=== PATIENT | female | born 1970 | race Caucasian/White ===

== ENCOUNTER 2016-11-03 17:37 | Emergency (ER) | payer OTHER ==
[2016-11-03] MEDS ORDERED: ONDANSETRON ODT 8 MG TAB.RAPDIS PO STA (18:02)
[2016-11-03] MEDS ORDERED: KETOROLAC 30 MG/ML 1 ML VIAL IVP STA (18:02)
[2016-11-03] MEDS ORDERED: HYDROmorphone 1 MG/ML 1 ML SYRINGE IVP STA (18:04)
--- NOTE | 2016-11-03 18:05 | ED ---
Abdominal Pain HPI - General Chief Complaint: Abdominal Pain Stated Complaint: abd pain Time Seen by Provider: 11/03/16 17:55 Source: patient, RN notes reviewed Mode of arrival: wheelchair Limitations: no limitations - History of Present Illness Initial Comments: Patient is a 46-year-old female with chief complaint of epigastric abdominal pain for approximately one week. She reports that she's her primary care provider as scheduled scope with Dr. Albaro Jimenez on for possible ulcer. Patient reports that every time she eats she vomits approximately 30 minutes afterwards. She states that she's not had a bowel movement in 3 days and feels that her abdomen is very distended. She reports that she is passing any gas and she is burping. She states that she has had no fever, chills, shortness of breath or chest pain. She reports that she's been taking multiple Zantac for acid reflux burning sensation. She states that today she did eat a corn dog approximately 30 minutes afterwards she vomited up. At this point she was concerned because she saw blood in her vomit. Patient's surgical history includes appendectomy, hysterectomy, back surgery and neck surgery. She states that she has a history of GERD, hypertension, hyperlipidemia and depression. - Related Data Home Medications Medication Instructions Recorded Confirmed Citalopram Hydrobromide [CeleXA] 40 mg PO DAILY 02/04/16 11/03/16 amLODIPine [Norvasc] 2.5 mg PO DAILY 07/01/16 11/03/16 Atorvastatin Calcium [Lipitor] 40 mg PO DAILY 11/03/16 11/03/16 HYDROcodone/APAP 7.5-325MG [[place] 1 tab PO BID PRN 11/03/16 11/03/16 7.5-325] Omeprazole [PriLOSEC] 20 mg PO DAILY 11/03/16 11/03/16 Previous Rx's Medication Instructions Recorded Acetaminophen-Codeine 300-30mg 1 tab PO Q4H PRN #12 tablet 11/03/16 [Tylenol #3] Ondansetron Odt [Zofran Odt] 4 mg PO Q8HR PRN #12 tab 11/03/16 Allergies Allergy/AdvReac Type Severity Reaction Status Date / Time morphine Allergy Rash/Hives Verified 11/03/16 18:10 Review of Systems ROS Statement: Those systems with pertinent positive or pertinent negative responses have been documented in the HPI. ROS Other: All systems not noted in ROS Statement are negative. Past Medical History Past Medical History: Hypertension History of Any Multi-Drug Resistant Organisms: None Reported Past Surgical History: Appendectomy, Back Surgery, Hysterectomy Additional Past Surgical History / Comment(s): neck surgery Past Psychological History: Depression Smoking Status: Current every day smoker Past Alcohol Use History: Rare Past Drug Use History: None Reported General Exam - General Exam Comments Initial Comments: Patient is a pleasant 46-year-old female. She does appear to be in significant discomfort. Limitations: no limitations General appearance: alert, in no apparent distress Head exam: Present: atraumatic, normocephalic, normal inspection Eye exam: Present: normal appearance, PERRL, EOMI. Absent: scleral icterus, conjunctival injection, periorbital swelling ENT exam: Present: normal exam, normal oropharynx, mucous membranes moist Neck exam: Present: normal inspection. Absent: tenderness, meningismus, lymphadenopathy Respiratory exam: Present: normal lung sounds bilaterally. Absent: respiratory distress, wheezes, rales, rhonchi, stridor Cardiovascular Exam: Present: regular rate, normal rhythm, normal heart sounds. Absent: systolic murmur, diastolic murmur, rubs, gallop, clicks GI/Abdominal exam: Present: distended (Patient's abdomen is very distended. Abdomen is tympanic in the left upper quadrant.), tenderness, normal bowel sounds. Absent: soft, guarding, rebound, rigid Extremities exam: Present: normal inspection, full ROM, normal capillary refill. Absent: tenderness, pedal edema, joint swelling, calf tenderness Back exam: Present: normal inspection Neurological exam: Present: alert, oriented X3, CN II-XII intact Psychiatric exam: Present: normal affect, normal mood Skin exam: Present: warm, dry, intact, normal color. Absent: rash Course Vital Signs 11/03/16 11/03/16 11/03/16 17:45 22:04 22:58 Temperature 98.4 F 99.1 F 96.8 F L Pulse Rate 87 80 85 Respiratory 20 18 18 Rate Blood Pressure 143/84 149/70 145/74 O2 Sat by Pulse 96 99 98 Oximetry Medical Decision Making - Medical Decision Making Patient is a 46-year-old female with chief complaint of epigastric abdominal pain for approximately one week. She reports that she's her primary care provider as scheduled scope with Dr. Albaro Jimenez on for possible ulcer. Patient reports that every time she eats she vomits approximately 30 minutes afterwards. She states that she's not had a bowel movement in 3 days and feels that her abdomen is very distended. She reports that she is passing gas and she is burping. She states that she has had no fever, chills, shortness of breath or chest pain. She reports that she's been taking multiple Zantac for acid reflux burning sensation. She states that today she did eat a corn dog approximately 30 minutes afterwards she vomited up. At this point she was concerned because she saw blood in her vomit. Patient lab was reviewed. No acute abnormalities. Xray was negative for any acute process, given patients tenderness and distension CT abdomen and pelvis obtained. CT was negative for any acute process for the pain. Patient did vomit the contrast up. Patient reports that she wants to go home at this time and to be given nasuea medication. I discussed that she needs to follow up with PCP and to complete the scope. Return parameters discussed. I discussed liquid diet cathietil seen by GI specialist. - Lab Data Result diagrams: 11/03/16 18:40 11/03/16 18:40 Lab Results 11/03/16 11/03/16 11/03/16 Range/Units 18:18 18:40 18:40 WBC 12.7 H (3.8-10.6) k/uL RBC 4.49 (3.80-5.40) m/uL Hgb 13.9 (11.4-16.0) gm/dL Hct 41.9 (34.0-46.0) % MCV 93.3 (80.0-100.0) fL MCH 30.8 (25.0-35.0) pg MCHC 33.1 (31.0-37.0) g/dL RDW 13.7 (11.5-15.5) % Plt Count 326 (150-450) k/uL Neutrophils % 60 % Lymphocytes % 30 % Monocytes % 5 % Eosinophils % 1 % Basophils % 1 % Neutrophils # 7.7 (1.3-7.7) k/uL Lymphocytes # 3.8 (1.0-4.8) k/uL Monocytes # 0.6 (0-1.0) k/uL Eosinophils # 0.1 (0-0.7) k/uL Basophils # 0.1 (0-0.2) k/uL Sodium 141 (137-145) mmol/L Potassium 4.2 (3.5-5.1) mmol/L Chloride 106 (98-107) mmol/L Carbon Dioxide 26 (22-30) mmol/L Anion Gap 9 mmol/L BUN 12 (7-17) mg/dL Creatinine 0.60 (0.52-1.04) mg/dL Est GFR (MDRD) Af Amer >60 (>60 ml/min/1.73 sqM) Est GFR (MDRD) Non-Af >60 (>60 ml/min/1.73 sqM) Glucose 95 (74-99) mg/dL Calcium 9.7 (8.4-10.2) mg/dL Total Bilirubin 0.4 (0.2-1.3) mg/dL AST 22 (14-36) U/L ALT 47 (9-52) U/L Alkaline Phosphatase 144 H (38-126) U/L Total Protein 7.5 (6.3-8.2) g/dL Albumin 4.3 (3.5-5.0) g/dL Amylase 66 (30-110) U/L Lipase 49 (23-300) U/L Urine Color Yellow Urine Appearance Clear (Clear) Urine pH 5.5 (5.0-8.0) Ur Specific [place] 1.021 (1.001-1.035) Urine Protein Negative (Negative) Urine Glucose (UA) Negative (Negative) Urine Ketones Negative (Negative) Urine Blood Trace H (Negative) Urine Nitrate Negative (Negative) Urine Bilirubin Negative (Negative) Urine Urobilinogen <2.0 (<2.0) mg/dL Ur Leukocyte Esterase Negative (Negative) Urine RBC 1 (0-5) /hpf Urine WBC 1 (0-5) /hpf Ur Squamous Epith Cells 4 (0-4) /hpf Urine Bacteria Few H (None) /hpf Hyaline Casts 1 (0-2) /lpf Urine Mucus Rare H (None) /hpf - Radiology Data Radiology results: report reviewed XR KUB AND CT ABD and pelvis reviewed and are negative for bowel obstruction. Disposition Clinical Impression: Nausea & vomiting, Epigastric abdominal pain Disposition: HOME SELF-CARE Condition: Good Instructions: Epigastric Pain (ED) Additional Instructions: Patient advised to follow-up with primary care provider in next 1-2 days. Return to emergency department if any alarming signs or symptoms occur. Prescriptions: Acetaminophen-Codeine 300-30mg [Tylenol #3] 1 tab PO Q4H PRN #12 tablet PRN Reason: Pain Ondansetron Odt [Zofran Odt] 4 mg PO Q8HR PRN #12 tab PRN Reason: Nausea Referrals: Becca Wiggins MD [Primary Care Provider] - 1-2 days Time of Disposition: 22:40
[2016-11-03] MEDS ORDERED: ONDANSETRON ODT 4 MG TAB PO STA (18:34)
[2016-11-03 19:09] LABS: Basophils # (A) 0.1 k/uL (0-0.2); Basophils % (A) 1 %; CH 31.9; CHCM 34.4; Eosinophils # (A) 0.1 k/uL (0-0.7); Eosinophils % (A) 1 %; HCT 41.9 % (34.0-46.0); HDW 2.54; HGB 13.9 gm/dL (11.4-16.0); Luc # (Auto) 0.39; Luc % (Auto) 3; Lymphocytes # (A) 3.8 k/uL (1.0-4.8); Lymphocytes % (A) 30 %; MCH 30.8 pg (25.0-35.0); MCHC 33.1 g/dL (31.0-37.0); MCV 93.3 fL (80.0-100.0); Mean Platelet Volume 8.2; Monocytes # (A) 0.6 k/uL (0-1.0); Monocytes % (A) 5 %; Neutrophils # (A) 7.7 k/uL (1.3-7.7); Neutrophils % (A) 60 %; RBC 4.49 m/uL (3.80-5.40); RDW 13.7 % (11.5-15.5); WBC 12.7 k/uL (3.8-10.6); WBC (Perox) 12.95
[2016-11-03 19:13] LABS: Appearance,Urine Clear (Clear); Bacteria,Urine Few /hpf; Bilirubin,Urine Negative (Negative); Glucose,Urine (UA) Negative (Negative); Ketones,Urine Negative (Negative); Leukocyte Esterase,Urine Negative (Negative); Mucus,Urine Rare /hpf; Nitrite,Urine Negative (Negative); PH, Urine 5.5 (5.0-8.0); Particle Count 2567; Protein,Urine Negative (Negative); RBC,Urine 1 /hpf (0-5); Specific Gravity,Urine 1.021 (1.001-1.035); Squamous Epithelial Cell,Urine 4 /hpf (0-4); UA Billing (MACRO vs. MICRO) MICRO; Urobilinogen,Urine <2.0 mg/dL (<2.0); WBC,Urine 1 /hpf (0-5)
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
[2016-11-03 19:27] LABS: ALT 47 U/L (9-52); AST 22 U/L (14-36); Alkaline Phosphatase 144 U/L (38-126); Amylase 66 U/L (30-110); Anion Gap 9 mmol/L; Blood Urea Nitrogen 12 mg/dL (7-17); Calcium 9.7 mg/dL (8.4-10.2); Carbon Dioxide 26 mmol/L (22-30); Chloride 106 mmol/L (98-107); Glucose 95 mg/dL (74-99); Non-African American GFR(MDRD) >60 (>60 ml/min/1.73 sqM); Potassium 4.2 mmol/L (3.5-5.1); Sodium 141 mmol/L (137-145); Total Bilirubin 0.4 mg/dL (0.2-1.3); Total Protein 7.5 g/dL (6.3-8.2)
[2016-11-03] MEDS ORDERED: RX INFO: IV CONTRAST WAS GIVEN 1 EACH MISC MISCELLANE PRN (19:44)
[2016-11-03] MEDS ORDERED: IOHEXOL 350 MG/ML 25 ML BOTTLE (ORAL USE) PO PRN (19:44)
--- NOTE | 2016-11-03 21:44 | CT ---
EXAMINATION TYPE: CT abdomen pelvis w con DATE OF EXAM: 11/03/2016 9:27 PM HISTORY: Upper Abdomen pain with nausea, vomiting and distention CT DLP: 1160.8mGycm Automated Exposure Control for Dose Reduction was Utilized. CONTRAST: CT scan of the abdomen and pelvis is performed with IV Contrast, patient injected with 100 mL of Omni paque 300. COMPARISON: None. FINDINGS: LUNG BASES: No significant abnormality is appreciated. LIVER/GB: Liver is diffusely low dense consistent with fatty infiltration. PANCREAS: No significant abnormality is seen. SPLEEN: No significant abnormality is seen. ADRENALS: No significant abnormality is seen. KIDNEYS: There are simple appearing 2 cm cyst posteriorly upper pole level left kidney. BOWEL: Only minimal oral contrast is seen in nondistended stomach making evaluation bowel slightly hermosillo boptimal. There is no suspicious small or large bowel dilatation seen. Surgical sutures from appendec jean claude are seen at base of cecum. UTERUS/ADNEXA: Uterus is surgically absent or markedly atrophic in appearance, small remnant structur es is noted on axial image 73. Left ovary is not enlarged on axial image 72. Normal-appearing right o vary is not clearly identified. Small remnant structure may reflect normal size right ovary medial in position. LYMPH NODES: No greater than 1cm abdominal or pelvic lymph nodes are appreciated. OSSEOUS STRUCTURES: There is facet arthropathy in the lower lumbar spine. There is moderate to advanc ed disc space narrowing with vacuum disc phenomenon and endplate sclerosis at lumbosacral junction. OTHER: There is mild calcified atherosclerotic change of the abdominal aorta and pelvic branch vessel s. IMPRESSION: No bowel obstruction is present. No significant acute finding is seen to account for pam ent's clinical symptoms.
[2016-11-03 22:05] VITALS: RESP 18
[2016-11-03] MEDS ORDERED: diphenhydrAMINE 50 MG/ML 1 ML VIAL IVP STA (22:41)
[2016-11-03] MEDS ORDERED: METOCLOPRAMIDE 5 MG/ML 2 ML VIAL IVP STA (22:41)
[2016-11-03 22:59] VITALS: BP 145/74; PULSE 85; TEMP 96.8
== END 2016-11-03 23:08 | disposition home or self-care (01) ==
LOC: EC 17:37
DX: R11.2 Nausea with vomiting, unspecified (principal); R10.13 Epigastric pain; I10 Essential (primary) hypertension; F32.9 Major depressive disorder, single episode, unspecified; F17.200 Nicotine dependence, unspecified, uncomplicated; Z88.5 Allergy status to narcotic agent; Z79.899 Other long term (current) drug therapy
CPT/HCPCS: 36415; 80053; 82150; 83690; 85025; 81001; 74000; 74177; 99284; 96374; 96375 ×3; J1200; J2765; J1885; J1170; Q9967

== ENCOUNTER 2016-11-05 08:51 | Inpatient (IN) | payer OTHER ==
[2016-11-05] MEDS ORDERED: HYDROmorphone 1 MG/ML 1 ML SYRINGE IVP STA (09:14)
[2016-11-05] MEDS ORDERED: ONDANSETRON 4 MG/2 ML VIAL IVP STA (09:15)
--- NOTE | 2016-11-05 09:20 | ED ---
Abdominal Pain HPI - General Chief Complaint: Abdominal Pain Stated Complaint: ABD PAIN Time Seen by Provider: 11/05/16 09:04 Source: patient, RN notes reviewed Mode of arrival: ambulatory Limitations: no limitations - History of Present Illness Initial Comments: Patient is a 46-year-old female presents to the emergency room for evaluation of abdominal pain and distention. Patient states she was here 2 days ago for the same complaint. Patient states that for the past week she has been having increasing mid epigastric pain. Patient states pain is worse after she eats. Patient states 30 minutes after she eats she vomits. Patient states she came here 2 days ago and received blood work, x-ray and CT of her abdomen/pelvis. Patient states they couldn't find any evidence for obstructions. Patient states they wanted to keep her here overnight and do an endoscopy in the morning. Patient states that she did not want to stay and went home instead. Patient states that she has an endoscopy scheduled with Dr. Peña on . Patient states the abdominal distention has gotten worse from when she was here last time. Patient states she can't sleep because of pain. Patient states she hasn't been eating because she's afraid she's going to vomit. Patient denies fevers or chills. Patient denies alcohol use. Patient denies any significant abdominal surgeries. - Related Data Home Medications Medication Instructions Recorded Confirmed Citalopram Hydrobromide [CeleXA] 40 mg PO DAILY 02/04/16 11/05/16 amLODIPine [Norvasc] 2.5 mg PO DAILY 07/01/16 11/05/16 Atorvastatin Calcium [Lipitor] 40 mg PO DAILY 11/03/16 11/05/16 HYDROcodone/APAP 7.5-325MG [[place] 1 tab PO BID PRN 11/03/16 11/05/16 7.5-325] Omeprazole [PriLOSEC] 20 mg PO DAILY 11/03/16 11/05/16 Previous Rx's Medication Instructions Recorded Acetaminophen-Codeine 300-30mg 1 tab PO Q4H PRN #12 tablet 11/03/16 [Tylenol #3] Ondansetron Odt [Zofran Odt] 4 mg PO Q8HR PRN #12 tab 11/03/16 Allergies Allergy/AdvReac Type Severity Reaction Status Date / Time morphine Allergy Rash/Hives Verified 11/05/16 17:04 Review of Systems ROS Statement: Those systems with pertinent positive or pertinent negative responses have been documented in the HPI. ROS Other: All systems not noted in ROS Statement are negative. Past Medical History Past Medical History: Hypertension History of Any Multi-Drug Resistant Organisms: None Reported Past Surgical History: Appendectomy, Back Surgery, Hysterectomy Additional Past Surgical History / Comment(s): neck surgery Past Psychological History: Depression Smoking Status: Current every day smoker Past Alcohol Use History: Rare Past Drug Use History: None Reported - Past Family History Father Family Medical History: No Reported History Additional Family Medical History / Comment(s): Father is 83 yrs old and healthy. Mother Family Medical History: Congestive Heart Failure (CHF), Diabetes Mellitus, Renal Disease Additional Family Medical History / Comment(s): Mother at the age of 71 yrs General Exam - General Exam Comments Initial Comments: Laying in exam room, uncomfortable secondary to discomfort, no acute distress. Limitations: no limitations General appearance: alert, in no apparent distress Head exam: Present: atraumatic, normocephalic, normal inspection Eye exam: Present: normal appearance ENT exam: Present: normal exam Neck exam: Present: normal inspection Respiratory exam: Present: normal lung sounds bilaterally. Absent: respiratory distress Cardiovascular Exam: Present: regular rate, normal rhythm, normal heart sounds GI/Abdominal exam: Present: distended, tenderness (epigastric), normal bowel sounds. Absent: guarding, rebound, rigid Extremities exam: Present: normal inspection Back exam: Present: normal inspection Neurological exam: Present: alert, oriented X3, CN II-XII intact, normal gait Psychiatric exam: Present: normal affect, normal mood Skin exam: Present: warm, dry, intact, normal color. Absent: rash Course Vital Signs 11/05/16 11/05/16 08:53 15:42 Temperature 97.3 F L 98.3 F Pulse Rate 92 89 Respiratory 18 18 Rate Blood Pressure 186/95 132/71 O2 Sat by Pulse 95 95 Oximetry Medical Decision Making - Medical Decision Making Patient is a 46-year-old female presents to the emergency room for evaluation of abdominal pain and distention. Labs showed no concerning findings. Repeat x -ray shows no specific findings. Case discussed Dr. Laguerre. Dr. Laguerre discussed case with Dr. Peña who agreed to admit patient. Patient will receive HIDA scan and gastroduodenal scope tomorrow morning. - Lab Data Result diagrams: 11/05/16 09:25 11/05/16 09:25 Lab Results 11/05/16 11/05/16 11/05/16 Range/Units 09:25 09:25 09:25 WBC 10.5 (3.8-10.6) k/uL RBC 4.55 (3.80-5.40) m/uL Hgb 14.1 (11.4-16.0) gm/dL Hct 42.6 (34.0-46.0) % MCV 93.5 (80.0-100.0) fL MCH 31.0 (25.0-35.0) pg MCHC 33.2 (31.0-37.0) g/dL RDW 13.6 (11.5-15.5) % Plt Count 313 (150-450) k/uL Neutrophils % 62 % Lymphocytes % 28 % Monocytes % 5 % Eosinophils % 1 % Basophils % 1 % Neutrophils # 6.5 (1.3-7.7) k/uL Lymphocytes # 2.9 (1.0-4.8) k/uL Monocytes # 0.6 (0-1.0) k/uL Eosinophils # 0.1 (0-0.7) k/uL Basophils # 0.1 (0-0.2) k/uL Sodium 143 (137-145) mmol/L Potassium 4.3 (3.5-5.1) mmol/L Chloride 104 (98-107) mmol/L Carbon Dioxide 29 (22-30) mmol/L Anion Gap 10 mmol/L BUN 8 (7-17) mg/dL Creatinine 0.66 (0.52-1.04) mg/dL Est GFR (MDRD) Af Amer >60 (>60 ml/min/1.73 sqM) Est GFR (MDRD) Non-Af >60 (>60 ml/min/1.73 sqM) Glucose 99 (74-99) mg/dL Calcium 9.5 (8.4-10.2) mg/dL Total Bilirubin 0.4 (0.2-1.3) mg/dL AST 23 (14-36) U/L ALT 41 (9-52) U/L Alkaline Phosphatase 130 H (38-126) U/L Total Protein 7.3 (6.3-8.2) g/dL Albumin 4.3 (3.5-5.0) g/dL Amylase 55 (30-110) U/L Lipase 58 (23-300) U/L Urine Color Yellow Urine Appearance Cloudy H (Clear) Urine pH 6.5 (5.0-8.0) Ur Specific [place] 1.016 (1.001-1.035) Urine Protein Trace H (Negative) Urine Glucose (UA) Negative (Negative) Urine Ketones Negative (Negative) Urine Blood Negative (Negative) Urine Nitrate Negative (Negative) Urine Bilirubin Negative (Negative) Urine Urobilinogen <2.0 (<2.0) mg/dL Ur Leukocyte Esterase Negative (Negative) Urine RBC 3 (0-5) /hpf Urine WBC 7 H (0-5) /hpf Ur Squamous Epith Cells 25 H (0-4) /hpf Urine Mucus Rare H (None) /hpf - Radiology Data Radiology results: report reviewed, image reviewed Disposition Clinical Impression: Abdominal pain, Abdominal distension Disposition: ADMITTED IP TO THIS [facility] Condition: Stable Decision Date: 11/05/16
[2016-11-05 09:46] LABS: Basophils # (A) 0.1 k/uL (0-0.2); Basophils % (A) 1 %; CH 31.7; CHCM 34.1; Eosinophils # (A) 0.1 k/uL (0-0.7); Eosinophils % (A) 1 %; HCT 42.6 % (34.0-46.0); HDW 2.57; HGB 14.1 gm/dL (11.4-16.0); Luc # (Auto) 0.32; Luc % (Auto) 3; Lymphocytes # (A) 2.9 k/uL (1.0-4.8); Lymphocytes % (A) 28 %; MCHC 33.2 g/dL (31.0-37.0); MCV 93.5 fL (80.0-100.0); Mean Platelet Volume 7.8; Monocytes # (A) 0.6 k/uL (0-1.0); Monocytes % (A) 5 %; Neutrophils # (A) 6.5 k/uL (1.3-7.7); Neutrophils % (A) 62 %; RBC 4.55 m/uL (3.80-5.40); RDW 13.6 % (11.5-15.5); WBC 10.5 k/uL (3.8-10.6); WBC (Perox) 10.85
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
[2016-11-05 09:51] LABS: ALT 41 U/L (9-52); AST 23 U/L (14-36); Alkaline Phosphatase 130 U/L (38-126); Amylase 55 U/L (30-110); Anion Gap 10 mmol/L; Blood Urea Nitrogen 8 mg/dL (7-17); Calcium 9.5 mg/dL (8.4-10.2); Carbon Dioxide 29 mmol/L (22-30); Chloride 104 mmol/L (98-107); Glucose 99 mg/dL (74-99); Non-African American GFR(MDRD) >60 (>60 ml/min/1.73 sqM); Potassium 4.3 mmol/L (3.5-5.1); Sodium 143 mmol/L (137-145); Total Bilirubin 0.4 mg/dL (0.2-1.3); Total Protein 7.3 g/dL (6.3-8.2)
[2016-11-05 09:54] LABS: Appearance,Urine Cloudy (Clear); Bilirubin,Urine Negative (Negative); Glucose,Urine (UA) Negative (Negative); Ketones,Urine Negative (Negative); Leukocyte Esterase,Urine Negative (Negative); Mucus,Urine Rare /hpf; Nitrite,Urine Negative (Negative); PH, Urine 6.5 (5.0-8.0); Particle Count 11230; Protein,Urine Trace (Negative); RBC,Urine 3 /hpf (0-5); Specific Gravity,Urine 1.016 (1.001-1.035); Squamous Epithelial Cell,Urine 25 /hpf (0-4); UA Billing (MACRO vs. MICRO) MICRO; Urobilinogen,Urine <2.0 mg/dL (<2.0); WBC,Urine 7 /hpf (0-5)
[2016-11-05] MEDS ORDERED: NALOXONE 0.4 MG/ML 1 ML VIAL IV PRN (11:44)
[2016-11-05] MEDS ORDERED: HYDROmorphone 1 MG/ML 1 ML SYRINGE IV PRN (11:44)
[2016-11-05] MEDS ORDERED: Magnesium Replacement Protocol 1 EACH MISC MISCELLANE PRN (14:16)
[2016-11-05] MEDS ORDERED: Potassium Replacement Protocol 1 EACH MISC MISCELLANE PRN (14:16)
--- NOTE | 2016-11-05 16:20 | NM ---
EXAMINATION TYPE: NM hepatobiliary w EF DATE OF EXAM: 11/05/2016 3:53 PM COMPARISON: CT abdomen pelvis 03 November 2016 HISTORY: Abdominal pain in the upper abdomen, nausea and vomiting TECHNIQUE: After the intravenous administration of 5.5 mCi Tc 99m Mebrofenin hepatobiliary scintigrap hy is performed. Immediate images post injection. FINDINGS: There is satisfactory initial accumulation of tracer by the liver. The gallbladder is visualized wit hin 12 minutes. The small bowel activity is noted within 38 minutes. At one hour 8 ounces of oral e nsure plus is given to mimic CCK and gallbladder ejection fraction is calculated at 34 %, which is sl ightly below normal. Therefore there is no scintigraphic evidence of cystic or common bile duct obst ruction to suggest acute cholecystitis or gallbladder dyskinesia. IMPRESSION: Borderline abnormal low gallbladder ejection fraction
[2016-11-05] MEDS: SODIUM CHLORIDE 0.9% 1,000 ML IV SCH (17:00)
[2016-11-05] MEDS: ONDANSETRON 4 MG/2 ML VIAL IVP PRN (17:06)
[2016-11-05] MEDS: MORPHINE SULFATE 2 MG/ML SYRINGE IVP PRN ×2 (17:49→21:59)
[2016-11-05] MEDS: PANTOPRAZOLE 40 MG/10 ML VIAL IVP SCH (22:05)
[2016-11-05] MEDS: HEPARIN SODIUM,PORCINE 5,000 UNIT/ML 1 ML VIAL SQ SCH (22:05)
[2016-11-06] MEDS: MORPHINE SULFATE 2 MG/ML SYRINGE IVP PRN ×5 (03:59→20:45)
[2016-11-06] MEDS: ONDANSETRON 4 MG/2 ML VIAL IVP PRN (04:00)
[2016-11-06 07:15] LABS: Anion Gap 9 mmol/L; Blood Urea Nitrogen 6 mg/dL (7-17); Carbon Dioxide 28 mmol/L (22-30); Chloride 104 mmol/L (98-107); Glucose 93 mg/dL (74-99); Magnesium 1.9 mg/dL (1.6-2.3); Non-African American GFR(MDRD) >60 (>60 ml/min/1.73 sqM); Potassium 4.3 mmol/L (3.5-5.1); Sodium 141 mmol/L (137-145)
[2016-11-06] MEDS: HEPARIN SODIUM,PORCINE 5,000 UNIT/ML 1 ML VIAL SQ SCH ×2 (08:09→19:54)
[2016-11-06] MEDS: PANTOPRAZOLE 40 MG/10 ML VIAL IVP SCH ×2 (08:10→19:54)
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
[2016-11-06 11:34] VITALS: BMI 31.9
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
[2016-11-06] MEDS ORDERED: PROPOFOL 10 MG/ML 20 ML VIAL IV ONE (16:22)
[2016-11-06] MEDS ORDERED: IV FLUID CONTINUATION 1,000 ML IV ONE (16:22)
--- NOTE | 2016-11-06 16:33 | P.OP ---
Date of Procedure: 11/06/16 Preoperative Diagnosis: GERD Postoperative Diagnosis: Mild antral gastritis No evidence of hiatal hernia No significant esophagitis Procedure(s) Performed: EGD Anesthesia: MAC Surgeon: Maikol Peña Pathology: other (The antrum) Condition: stable Disposition: PACU Description of Procedure: The patient's placed on the endoscopy table in the lateral position. She received IV sedation. The gastroscope some placed oropharynx and passed into the esophagus and into the stomach. Scope was then placed through the pylorus. The first and second portion of the duodenum appeared normal. Scope was then brought back the antrum and this was mildly inflamed. A biopsies was performed. The scope was then retroflexed and the remainder of the stomach was normal. There was no significant hiatal hernia. The GE junction was at 47 is. The distal esophagus appeared mildly inflamed a biopsies was performed. The proximal esophagus appeared normal. Scope was withdrawn for patient.
[2016-11-06] MEDS: LACTATED RINGERS 1,000 ML IV SCH ×2 (17:03→19:45)
[2016-11-06] MEDS: SODIUM CHLORIDE 0.9% 1,000 ML IV SCH ×2 (19:22→19:55)
[2016-11-07] MEDS: MORPHINE SULFATE 2 MG/ML SYRINGE IVP PRN ×3 (00:49→09:11)
[2016-11-07] MEDS ORDERED: MAG HYDROX/AL HYDROX/SIMETH 30 ML CUP PO PRN (01:38)
[2016-11-07] MEDS: SODIUM CHLORIDE 0.9% 1,000 ML IV SCH ×2 (06:35→19:45)
[2016-11-07 08:27] LABS: Anion Gap 10 mmol/L; Blood Urea Nitrogen 7 mg/dL (7-17); Calcium 8.9 mg/dL (8.4-10.2); Carbon Dioxide 24 mmol/L (22-30); Chloride 107 mmol/L (98-107); Glucose 83 mg/dL (74-99); Magnesium 1.9 mg/dL (1.6-2.3); Non-African American GFR(MDRD) >60 (>60 ml/min/1.73 sqM); Potassium 4.2 mmol/L (3.5-5.1); Sodium 141 mmol/L (137-145)
--- NOTE | 2016-11-07 09:19 | P.PN ---
Progress Note - Text The patient is scheduled for laparoscopic ostectomy for biliary dyskinesia today. I've gone over the risks and benefits of the procedure with the patient.
[2016-11-07] MEDS ORDERED: IV FLUID CONTINUATION 1,000 ML IV ONE (09:48)
[2016-11-07] MEDS: ONDANSETRON 4 MG/2 ML VIAL IVP PRN (10:04)
[2016-11-07] MEDS ORDERED: DEXAMETHASONE SOD PHOS (MDV) 100 MG/10 ML VIAL IV ONE (10:04)
[2016-11-07] MEDS ORDERED: ceFAZolin 2 GM in SODIUM CHLORIDE 0.9% 100 ML IVPB ONE (10:24)
[2016-11-07] MEDS: HEPARIN SODIUM,PORCINE 5,000 UNIT/ML 1 ML VIAL SQ SCH ×2 (10:24→19:51)
[2016-11-07] MEDS ORDERED: PROPOFOL 10 MG/ML 20 ML VIAL IV ONE (10:49)
[2016-11-07] MEDS ORDERED: NEOSTIGMINE 1 MG/ML 10 ML VIAL ONE (10:49)
[2016-11-07] MEDS ORDERED: GLYCOPYRROLATE 0.2 MG/ML 2 ML VIAL ONE (10:49)
[2016-11-07] MEDS ORDERED: MIDAZOLAM 2 MG/2 ML VIAL ONE (10:49)
[2016-11-07] MEDS ORDERED: HYDROmorphone (PF) 1 MG/ML ONE (10:49)
[2016-11-07] MEDS ORDERED: KETOROLAC 30 MG/ML 1 ML VIAL ONE (10:49)
[2016-11-07] MEDS ORDERED: fentaNYL (PF) 50 MCG/ML 2 ML AMP ONE (10:49)
[2016-11-07] MEDS ORDERED: SUCCINYLCHOLINE CHLORIDE 100 MG/5 ML SYR IV ONE (10:49)
[2016-11-07] MEDS ORDERED: LIDOCAINE 1% INJ 10MG/ML (20 ML MDV) ONE (10:49)
[2016-11-07] MEDS ORDERED: ROCURONIUM BROMIDE 10 MG/ML 10 ML VIAL IV ONE (10:49)
[2016-11-07] MEDS ORDERED: BUPIVACAIN-EPI 0.25%-1:200,000 30 ML VIAL SQ ONE (11:01)
[2016-11-07] MEDS ORDERED: HYDROcodone/APAP 5-325MG 1 EACH TAB PO PRN (11:17)
[2016-11-07] MEDS ORDERED: NALOXONE 0.4 MG/ML 1 ML VIAL IV PRN (11:17)
[2016-11-07] MEDS ORDERED: LACTATED RINGERS 1,000 ML IV ONE ×3 (11:17→11:23)
--- NOTE | 2016-11-07 11:17 | P.OP ---
Date of Procedure: 11/07/16 Preoperative Diagnosis: Cholecystitis Postoperative Diagnosis: Cholecystitis Procedure(s) Performed: Laparoscopic cholecystectomy Anesthesia: ALYCE Surgeon: Maikol Peña Estimated Blood Loss (ml): 5 Pathology: other (Gallbladder) Condition: stable Disposition: PACU Description of Procedure: The patient was placed on the operating table. The patient received a general endotracheal tube anesthesia. The patients abdomen was prepped and draped in the usual sterile fashion. Through an infraumbilical stab incision, the fascia of the anterior abdominal wall was grasped with a pair of Kochers and then the Veress needle was placed in the peritoneal cavity. Position of the Veress needle was confirmed with positive drop test. The abdomen was then insufflated. After adequate insufflation, the 10 mm trocar was placed in the peritoneal cavity. Following this the laparoscope was placed in the peritoneal cavity. The patient was placed in the head-up, right side up position and then a 5 mm trocar was placed in the right lateral and right subcostal position under direct visualization. A 8 mm trocar was placed in the epigastric position. The gallbladder was grasped in the fundus and infundibulum. Traction on the gallbladder was placed in the lateral and the cephalad positions. The triangle of Calot was visualized.. The cystic duct was bluntly dissected until the union of the cystic duct and common bile duct was seen. The cystic duct was then divided and sealed with the Harmonic scissors. A PDS Endoloop was then placed throughout the cystic duct stump. The cystic artery divided and sealed with the Harmonic scissors. The gallbladder was then removed from the liver bed using Harmonic scissors. The gallbladder was then extracted through the epigastric port site. Operative field was checked for any bleeding spots and Harmonic scissors was used to coagulate the liver bed. The abdomen was irrigated. The trocars were removed. The skin was closed using interrupted 3-0 Vicryl suture. Dermabond dressing were applied. The patient tolerated the procedure well.
[2016-11-07] MEDS ORDERED: HYDROmorphone 1 MG/ML 1 ML SYRINGE IVP ONE (11:58)
[2016-11-07] MEDS: HYDROmorphone 1 MG/ML 1 ML SYRINGE IVP PRN ×4 (13:48→22:47)
[2016-11-07] MEDS: CITALOPRAM HYDROBROMIDE 20 MG TAB PO SCH (13:50)
[2016-11-07] MEDS: amLODIPine 2.5 MG TAB PO SCH (13:50)
[2016-11-07] MEDS: PANTOPRAZOLE 40 MG/10 ML VIAL IVP SCH ×2 (13:50→19:50)
[2016-11-07] MEDS: ATORVASTATIN 40 MG TAB PO SCH (13:50)
[2016-11-07] MEDS: LACTATED RINGERS 1,000 ML IV SCH (19:51)
[2016-11-07 20:00] VITALS: RESP 16
[2016-11-08] MEDS: HYDROmorphone 1 MG/ML 1 ML SYRINGE IVP PRN ×3 (01:46→08:43)
[2016-11-08] MEDS: SODIUM CHLORIDE 0.9% 1,000 ML IV SCH ×2 (03:56→12:51)
[2016-11-08] MEDS ORDERED: BENZOCAINE/MENTHOL LOZENG 1 EACH LOZENGE MUCOUS MEM PRN (04:49)
[2016-11-08 07:35] LABS: Anion Gap 9 mmol/L; Blood Urea Nitrogen 6 mg/dL (7-17); Calcium 9.3 mg/dL (8.4-10.2); Carbon Dioxide 28 mmol/L (22-30); Chloride 103 mmol/L (98-107); Glucose 108 mg/dL (74-99); Magnesium 1.9 mg/dL (1.6-2.3); Non-African American GFR(MDRD) >60 (>60 ml/min/1.73 sqM); Potassium 4.4 mmol/L (3.5-5.1); Sodium 140 mmol/L (137-145)
[2016-11-08 08:28] VITALS: BP 131/76; PULSE 76; TEMP 98.1
[2016-11-08] MEDS: amLODIPine 2.5 MG TAB PO SCH (08:34)
[2016-11-08] MEDS: HEPARIN SODIUM,PORCINE 5,000 UNIT/ML 1 ML VIAL SQ SCH (08:34)
[2016-11-08] MEDS: PANTOPRAZOLE 40 MG/10 ML VIAL IVP SCH (08:35)
[2016-11-08] MEDS: ATORVASTATIN 40 MG TAB PO SCH (08:35)
[2016-11-08] MEDS: CITALOPRAM HYDROBROMIDE 20 MG TAB PO SCH (08:35)
--- NOTE | 2016-11-08 11:54 | P.PN ---
Subjective Patient is status post EGD and laparoscopic cholecystectomy Abdominal pain has resolved. No nausea or vomiting. Tolerating diet. The bloating sensation also resolved. Denies any chest pain or shortness breath. Denies any difficulty urinating. Objective - Vital Signs Vital signs: Vital Signs Temp 98.1 F 11/08/16 08:00 Pulse 76 11/08/16 08:00 Resp 16 11/08/16 08:00 BP 131/76 11/08/16 08:00 Pulse Ox 93 L 11/08/16 08:00 Intake & Output 11/07/16 11/08/16 11/08/16 18:59 06:59 18:59 Intake Total 420 220 Balance 420 220 Intake: Oral 420 220 Other: Voiding Method Toilet Toilet # Voids 1 1 - Exam Head normocephalic Neck supple Lungs clear to auscultation bilaterally no wheezing or crackles Heart regular rate and rhythm S1-S2, no rub or gallop Abdomen is soft nontender nondistended positive bowel sounds no hepatosplenomegaly. Incisions clean dry and intact Extremities no edema Neuro alert and orientated to 3 - Labs CBC & Chem 7: 11/05/16 09:25 11/08/16 06:22 Labs: Abnormal Lab Results - Last 24 Hours (Table) 11/08/16 Range/Units 06:22 BUN 6 L (7-17) mg/dL Glucose 108 H (74-99) mg/dL Assessment and Plan Plan: 1) cholecystitis status post laparoscopic cholecystectomy 2) epigastric pain: Status post EGD revealing antral gastritis. Continue Protonix 3) severe GERD 4) Essential hypertension: Blood pressure not well-controlled 5) Major depressive disorder: maintained on Celexa 6) Mild intermittent asthma: on albuterol inhaler as needed 7) Cervical spine degenerative joint disease noted on MRI: on [place] twice a day as needed for pain 8) Mixed hyperlipidemia: on Lipitor anticipate discharge later today after seen by surgical service. Have patient follow-up with Dr. Wiggins in 1 week
--- NOTE | 2016-11-08 13:50 | P.DS ---
Providers Date of admission: 11/07/16 14:27 Expected date of discharge: 11/08/16 Attending physician: Maikol Peña Primary care physician: Becca Wiggins [facility] Course: This is a 38-year-old female who is admitted to the hospital complaints of nausea and epigastric dull pain. Patient had a HIDA scan performed which showed decreased ejection fraction consistent with biliary dyskinesia. She also had a EGD performed which showed some mild gastritis. Patient went laparoscopic cholecystectomy. She has done well since her surgery. Please see chart for details. Procedures: Laparoscopic cholecystectomy Patient Condition at Discharge: Good Plan - Discharge Summary New Discharge Prescriptions: HYDROcodone/APAP 7.5-325MG [[place] 7.5-325] 1 tab PO Q6HR PRN #28 tab PRN Reason: Pain Discharge Medication List Citalopram Hydrobromide [CeleXA] 40 mg PO DAILY 02/04/16 [History] amLODIPine [Norvasc] 2.5 mg PO DAILY 07/01/16 [History] Atorvastatin Calcium [Lipitor] 40 mg PO DAILY 11/03/16 [History] Omeprazole [PriLOSEC] 20 mg PO DAILY 11/03/16 [History] Ondansetron Odt [Zofran ODT] 4 mg PO Q8HR PRN #12 tab 11/03/16 [Rx] HYDROcodone/APAP 7.5-325MG [[place] 7.5-325] 1 tab PO Q6HR PRN #28 tab 11/07/16 [ Rx] Follow up Appointment(s)/Referral(s): Becca Wiggins MD [Primary Care Provider] - 1 Week Maikol Peña MD [STAFF PHYSICIAN] - 1 Week Patient Instructions/Handouts: *Surgery [facility] - Laparoscopic Cholecystectomy Discharge Instructions Activity/Diet/Wound Care/Special Instructions: No heavy lifting, pushing, or pulling items greater than 10 pounds. Low fat diet Shower daily, no soaking in bath tubs, pools, or hot tubs. No driving while taking pain medication. Notify surgeon with any signs or symptoms of infection, increased pain, or not tolerating diet. Discharge Disposition: HOME SELF-CARE
== END 2016-11-08 13:05 | disposition home or self-care (01) | DRG 419 ==
LOC: EC 08:51 → 3OBS 11:44 → OBSVTOIN 11-07 14:27
PROVIDERS: ADMIT Surgery; ATTEND Surgery
PROC: 0DB68ZX Excision of Stomach, Via Natural or Artificial Opening Endoscopic, Diagnostic (ICD-10-PCS; 2016-11-06)
PROC: 0FT44ZZ Resection of Gallbladder, Percutaneous Endoscopic Approach (ICD-10-PCS; principal; 2016-11-07 11:20)
DX: K81.9 Cholecystitis, unspecified (principal); I10 Essential (primary) hypertension; K21.9 Gastro-esophageal reflux disease without esophagitis; K82.8 Other specified diseases of gallbladder; K29.60 Other gastritis without bleeding; E78.2 Mixed hyperlipidemia; J45.20 Mild intermittent asthma, uncomplicated; M50.30 Other cervical disc degeneration, unspecified cervical region; F17.200 Nicotine dependence, unspecified, uncomplicated; R74.8 Abnormal levels of other serum enzymes; F32.9 Major depressive disorder, single episode, unspecified; R63.4 Abnormal weight loss; Z88.5 Allergy status to narcotic agent; Z91.5 Personal history of self-harm; Z82.49 Family history of ischemic heart disease and other diseases of the circulatory system; Z83.3 Family history of diabetes mellitus; Z79.899 Other long term (current) drug therapy; Z90.710 Acquired absence of both cervix and uterus; Z87.81 Personal history of (healed) traumatic fracture; Z86.19 Personal history of other infectious and parasitic diseases; Z87.09 Personal history of other diseases of the respiratory system; Z79.891 Long term (current) use of opiate analgesic; Z90.49 Acquired absence of other specified parts of digestive tract; Z84.2 Family history of other diseases of the genitourinary system
CPT/HCPCS: 36415; 43239; 74000; 78226; 80048; 80053; 81001; 82150; 83690; 83735; 85025; 87086; 88304; 88305; 88342; 96372; 96374; 96375; 96376; 99285

== ENCOUNTER 2016-12-24 11:02 | Emergency (ER) | payer OTHER ==
[2016-12-24 11:09] VITALS: BP 140/67; PULSE 92; RESP 20; TEMP 98.1
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
== END 2016-12-24 11:42 | disposition home or self-care (01) ==
LOC: EC 11:02
DX: L03.116 Cellulitis of left lower limb (principal); I10 Essential (primary) hypertension; F32.9 Major depressive disorder, single episode, unspecified; F17.200 Nicotine dependence, unspecified, uncomplicated; Z79.899 Other long term (current) drug therapy; Z88.5 Allergy status to narcotic agent; X58.XXXA Exposure to other specified factors, initial encounter
CPT/HCPCS: 99283

== ENCOUNTER → 2017-01-28 | Outpatient (CLI) | payer OTHER ==
--- NOTE | 2017-01-28 09:48 | MM ---
Reason for exam: screening (asymptomatic). Last mammogram was performed 1 year and 6 months ago. History: Patient is postmenopausal. Physical Findings: A clinical breast exam by your physician is recommended on an annual basis and results should be correlated with mammographic findings. MG Screening Mammo w CAD Bilateral CC and MLO view(s) were taken. Prior study comparison: August 07, 2015, mammogram, performed at [facility]. June 08, 2014, mammogram, performed at [facility]. The breast tissue is heterogeneously dense. This may lower the sensitivity of mammography. Asymmetric breast tissue in the left breast. This finding is changed when compared with previous exams. ASSESSMENT: Incomplete: need additional imaging evaluation, BI-RAD 0 RECOMMENDATION: Special view mammogram of the left breast. If lesion persists on supplemental views, image directed ultrasound is recommended. [facility] will attempt to contact patient to return for supplemental views and ultrasound if indicated.
== END | disposition home or self-care (01) ==
LOC: RADMAMWWP 08:23
PROVIDERS: ATTEND Internal Medicine
DX: Z12.31 Encounter for screening mammogram for malignant neoplasm of breast (principal)

== ENCOUNTER → 2017-01-30 | Outpatient (CLI) | payer OTHER ==
--- NOTE | 2017-01-30 09:29 | MM ---
Reason for exam: additional evaluation requested from abnormal screening. Last mammogram was performed less than 1 month ago. History: Patient is postmenopausal. Physical Findings: Nurse did not find any significant physical abnormalities on exam. MG Work Up Mamm w CAD LT LM, spot compression CC, and spot compression MLO view(s) were taken of the left breast. Prior study comparison: January 28, 2017, bilateral MG screening mammo w CAD. August 07, 2015, mammogram, performed at [facility]. June 08, 2014, mammogram, performed at [facility]. The breast tissue is heterogeneously dense. This may lower the sensitivity of mammography. Lesion does not persist on additional views. These results were verbally communicated with the patient and result sheet given to the patient on 01/30/17. ASSESSMENT: Benign, BI-RAD 2 RECOMMENDATION: Return to routine screening mammogram schedule for both breasts.
== END | disposition home or self-care (01) ==
LOC: RADMAMWWP 08:18
PROVIDERS: ATTEND Internal Medicine
DX: R92.8 Other abnormal and inconclusive findings on diagnostic imaging of breast (principal)

== ENCOUNTER 2017-05-22 09:22 | Emergency (ER) | payer OTHER ==
[2017-05-22 09:40] VITALS: BP 136/91; PULSE 100; RESP 18; TEMP 97.4
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
[2017-05-22] MEDS ORDERED: KETOROLAC 60 MG/2 ML VIAL IM STA (10:39)
--- NOTE | 2017-05-22 10:44 | US ---
EXAMINATION TYPE: US venous doppler duplex LE LT DATE OF EXAM: 05/22/2017 9:45 AM COMPARISON: NONE CLINICAL HISTORY: Pain. SIDE PERFORMED: left TECHNIQUE: The lower extremity deep venous system is examined utilizing real time linear array sonog zena with graded compression, doppler sonography and color-flow sonography. VESSELS IMAGED: External Iliac Vein (EIV) Common Femoral Vein Deep Femoral Vein Greater Saphenous Vein * Femoral Vein Popliteal Vein Small Saphenous Vein * Proximal Calf Veins (* superficial vessels) Left Leg: Negative for DVT IMPRESSION: 1. No diagnostic evidence of DVT as visualized.
== END 2017-05-22 11:07 | disposition home or self-care (01) ==
LOC: EC 09:22
DX: S39.012A Strain of muscle, fascia and tendon of lower back, initial encounter (principal); M25.562 Pain in left knee; M79.652 Pain in left thigh; E78.5 Hyperlipidemia, unspecified; I10 Essential (primary) hypertension; F32.9 Major depressive disorder, single episode, unspecified; F17.200 Nicotine dependence, unspecified, uncomplicated; Z79.891 Long term (current) use of opiate analgesic; Z79.899 Other long term (current) drug therapy; Z88.5 Allergy status to narcotic agent; Z98.890 Other specified postprocedural states; X58.XXXA Exposure to other specified factors, initial encounter
CPT/HCPCS: 93971; 99283; 96372; J1885

== ENCOUNTER 2017-06-13 07:46 | Emergency (ER) | payer OTHER ==
[2017-06-13 07:51] VITALS: RESP 16
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
[2017-06-13 09:31] LABS: Appearance,Urine Clear (Clear); Bacteria,Urine Rare /hpf; Bilirubin,Urine Negative (Negative); Glucose,Urine (UA) Negative (Negative); Ketones,Urine Negative (Negative); Leukocyte Esterase,Urine Negative (Negative); Mucus,Urine Rare /hpf; Nitrite,Urine Negative (Negative); Particle Count 605; Protein,Urine Negative (Negative); Specific Gravity,Urine 1.002 (1.001-1.035); Sperm,Urine Occasional /hpf; Squamous Epithelial Cell,Urine 1 /hpf (0-4); UA Billing (MACRO vs. MICRO) MICRO; Urobilinogen,Urine <2.0 mg/dL (<2.0)
[2017-06-13 09:56] VITALS: BP 136/81; PULSE 90
--- NOTE | 2017-06-13 10:51 | US ---
EXAMINATION TYPE: US transvaginal DATE OF EXAM: 06/13/2017 COMPARISON: 12/23/2012 CLINICAL HISTORY: Pain. Partial hysterectomy x 28 years ago-- RO and UT removed. Patient states waki ng up this morning bleeding. TECHNIQUE: Transvaginal (TV) EXAM MEASUREMENTS: Left Ovary: 2.5 x 1.3 x 1.2 cm 1. Uterus: Surgically absent 2. Endometrium: Surgically absent 3. Right Ovary: Surgically absent 4. Left Ovary: Hypoechoic heterogenous lesion - 1.3 x 1.4 x 1.4 cm Spectral, color and waveform doppler imaging shows good arterial and venous flow within the ovaries ; there is no evidence for ovarian torsion. 5. Bilateral Adnexa: wnl 6. Posterior cul-de-sac: no free fluid Previous vaginal cuff masslike area is not identified on the current exam. IMPRESSION: 1.4 cm complex area within the left ovary. Follow-up is recommended. This could be a neeraj d lesion or may be a very complex cyst.
[2017-06-13 11:04] VITALS: TEMP 98.2
== END 2017-06-13 11:04 | disposition home or self-care (01) ==
LOC: EC 07:46
DX: N83.202 Unspecified ovarian cyst, left side (principal); N93.9 Abnormal uterine and vaginal bleeding, unspecified; E78.5 Hyperlipidemia, unspecified; I10 Essential (primary) hypertension; F32.9 Major depressive disorder, single episode, unspecified; F17.200 Nicotine dependence, unspecified, uncomplicated; Z79.899 Other long term (current) drug therapy; Z88.5 Allergy status to narcotic agent
CPT/HCPCS: 76830; 81001; 93976; 99284

== ENCOUNTER → 2018-01-07 | Outpatient (CLI) | payer OTHER ==
--- NOTE | 2018-01-07 15:20 | XR ---
Right knee HISTORY: Trauma and pain 3 views of the right knee Bone mineralization, joint spaces and alignment are maintained. No evident joint effusion. IMPRESSION: No fracture or dislocation. MRI may be of benefit.
== END | disposition home or self-care (01) ==
LOC: RADXRMAIN 08:49
PROVIDERS: ATTEND Internal Medicine
DX: M25.561 Pain in right knee (principal)

== ENCOUNTER → 2018-02-18 | Outpatient (CLI) | payer OTHER ==
[2018-02-18 11:39] LABS: Basophils % (A) 0 %; Eosinophils # (A) 0.1 k/uL (0-0.7); Eosinophils % (A) 1 %; HCT 46.6 % (34.0-46.0); HGB 15.3 gm/dL (11.4-16.0); Lymphocytes # (A) 2.7 k/uL (1.0-4.8); Lymphocytes % (A) 20 %; MCH 30.3 pg (25.0-35.0); MCHC 32.8 g/dL (31.0-37.0); MCV 92.6 fL (80.0-100.0); Mean Platelet Volume 7.6; Monocytes # (A) 0.7 k/uL (0-1.0); Monocytes % (A) 5 %; Neutrophils # (A) 9.9 k/uL (1.3-7.7); Neutrophils % (A) 73 %; Platelet Count 465 k/uL (150-450); RBC 5.04 m/uL (3.80-5.40); RDW 13.5 % (11.5-15.5); WBC 13.6 k/uL (3.8-10.6)
[2018-02-18 11:44] LABS: ALT 97 U/L (9-52); AST 62 U/L (14-36)
[2018-02-18 17:57] LABS: Hemoglobin A1C 5.8 % (4.0-6.0)
== END | disposition home or self-care (01) ==
LOC: LABWHC1 11:01
PROVIDERS: ATTEND Internal Medicine
DX: D72.829 Elevated white blood cell count, unspecified (principal); R73.09 Other abnormal glucose; R94.5 Abnormal results of liver function studies
CPT/HCPCS: 36415; 83036; 84450; 84460; 85025

== ENCOUNTER 2018-02-19 12:03 | Emergency (ER) | payer OTHER ==
[2018-02-19 12:08] VITALS: RESP 18
[2018-02-19] MEDS ORDERED: DIAZEPAM 5 MG TAB PO STA (12:37)
[2018-02-19] MEDS ORDERED: KETOROLAC 30 MG/ML 1 ML VIAL IM STA (12:37)
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
[2018-02-19 13:17] VITALS: BP 148/70; PULSE 68; TEMP 97.7
--- NOTE | 2018-02-19 13:17 | XR ---
Cervical spine HISTORY: Neck strain, pain 5 views of the cervical spine No comparisons There is multilevel facet arthropathy. Multilevel spondylosis is present. Straightening of the cervic al spine could be due to muscle spasm. Cervical vertebral bodies show preserved height. Alignment is maintained. There is loss of disc height at multiple intervertebral levels. Prevertebral soft tissues are normal. Oblique images show foraminal encroachment at C5-6 and C6-7 on the left, C4-5, C5-6 and C6-7 on the right. IMPRESSION: Degenerative disc disease and foraminal encroachment, facet arthropathy. Loss of cervical lordosis.
== END 2018-02-19 13:51 | disposition home or self-care (01) ==
LOC: EC 12:03
DX: S16.1XXA Strain of muscle, fascia and tendon at neck level, initial encounter (principal); M47.22 Other spondylosis with radiculopathy, cervical region; F32.9 Major depressive disorder, single episode, unspecified; F17.200 Nicotine dependence, unspecified, uncomplicated; Z79.899 Other long term (current) drug therapy; Z88.5 Allergy status to narcotic agent; Z98.890 Other specified postprocedural states
CPT/HCPCS: 72050; 99283; 96372; J1885

== ENCOUNTER → 2018-03-03 | Outpatient (CLI) | payer OTHER ==
--- NOTE | 2018-03-03 08:51 | US ---
EXAMINATION TYPE: US liver DATE OF EXAM: 03/03/2018 COMPARISON: CT abdomen and pelvis November 03, 2016 CLINICAL HISTORY: R94.5 ABN Liver Function. GB removed x 2 years ago. Abnormal labs EXAM MEASUREMENTS: Liver Length: 16.1 cm CBD: 0.6 cm CHD: 0.4 cm Right Kidney: 11.7 x 3.8 x 4.0 cm Pancreas: wnl Liver: Caudate lobe appears hypoechoic compared to rest of liver. Appears echogenic. Gallbladder: Surgically absent Evidence for sonographic Vail's sign: neg CBD: wnl CHD: wnl Right Kidney: wnl Heterogeneous hyperechoic appearance of liver without intrahepatic ductal dilatation. Evaluation for focal masses is suboptimal but no suspicious masses are seen on images saved. Gallbladder noted surgi riddhi absent. IMPRESSION: Heterogeneous hyperechoic appearance of liver could reflect product of diffuse fatty infi ltration or underlying hepatocellular disease. Imaging guided random biopsy for tissue analysis can b e performed if desired.
== END | disposition home or self-care (01) ==
LOC: RADUSWWP 07:39
PROVIDERS: ATTEND Internal Medicine
DX: R93.2 Abnormal findings on diagnostic imaging of liver and biliary tract (principal)
CPT/HCPCS: 76705

== ENCOUNTER → 2018-04-08 | Outpatient (CLI) | payer OTHER ==
[2018-04-08 08:48] LABS: ALT 61 U/L (9-52); AST 25 U/L (14-36); Albumin 4.1 g/dL (3.5-5.0); Alkaline Phosphatase 126 U/L (38-126); Anion Gap 9 mmol/L; Blood Urea Nitrogen 15 mg/dL (7-17); Calcium 9.7 mg/dL (8.4-10.2); Carbon Dioxide 24 mmol/L (22-30); Chloride 107 mmol/L (98-107); Glucose 103 mg/dL (74-99); Potassium 4.8 mmol/L (3.5-5.1); Sodium 140 mmol/L (137-145); Total Bilirubin 0.3 mg/dL (0.2-1.3); Total Protein 6.8 g/dL (6.3-8.2)
[2018-04-08 16:55] LABS: Iron Saturation 22.57 (12.00-45.00)
[2018-04-09 11:58] LABS: Ceruloplasmin 32.6 mg/dL (20.0-60.0)
[2018-04-11 09:44] LABS: Albumin 4.24 g/dL (3.80-4.90); Gamma Globulin 0.73 g/dL (0.70-1.50); Protein, Total 6.8 g/dL (6.2-8.2)
== END | disposition home or self-care (01) ==
LOC: LABWHC1 07:54
PROVIDERS: ATTEND Internal Medicine Gastroenterology
DX: R94.5 Abnormal results of liver function studies (principal)
CPT/HCPCS: 36415; 80053; 82103; 82390; 82728; 83516; 83540; 83550; 84165; 86038

== ENCOUNTER 2018-04-22 06:47 | Day surgery (SDC) | payer OTHER ==
[2018-04-20 11:51] VITALS: BMI 31.1
[~2018-04-22 06:47] MED LIST: LACTATED RINGERS 1,000 ML IV SCH; LIDOCAINE 1% 20 ML VIAL (10MG/ML) FOR IV START INTRADERMA PRN
[2018-04-22 07:11] VITALS: RESP 16; TEMP 96.8
[2018-04-22] MEDS ORDERED: LIDOCAINE 1% INJ 10MG/ML (20 ML MDV) ONE (08:09)
[2018-04-22] MEDS ORDERED: PROPOFOL 10 MG/ML 20 ML VIAL IV ONE (08:09)
--- NOTE | 2018-04-22 08:23 | P.PCN ---
Date of Procedure: 04/22/18 Procedure(s) Performed: BRIEF HISTORY: Patient is a 48-year-old pleasant white female, scheduled for an elective colonoscopy as a part of evaluation of left lower quadrant abdominal pain for the last several months duration. She denies any change in bowel habits or rectal bleeding. PROCEDURE PERFORMED: Colonoscopy. PREOPERATIVE DIAGNOSIS: Left lower quadrant abdominal pain. IV sedation per Anesthesia. PROCEDURE: After informed consent was obtained, the patient, was brought into the endoscopy unit. IV sedation was administered by Anesthesia under continuous monitoring. Digital rectal examination was normal. Initially the Olympus CF- 160 flexible video colonoscope was then inserted in the rectum, gradually advanced into the cecum without any difficulty. Careful examination was performed as the scope was gradually being withdrawn. Ileocecal valve and the appendiceal orifice were visualized and appeared normal. Prep was excellent. Mucosa of the cecum, ascending colon, transverse colon, descending colon, sigmoid colon, and rectum appeared normal. Retroflexion was performed in the rectum and no lesions were seen. The patient tolerated the procedure well. IMPRESSION: Normal-appearing colon from rectum to cecum with no evidence of colorectal neoplasia . RECOMMENDATIONS: Findings of this examination were discussed with the patient as well as her family. She was advised to have a repeat screening colonoscopy in 10 years. 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
[2018-04-22 08:42] VITALS: PULSE 85
[2018-04-22 08:51] VITALS: BP 132/83
== END 2018-04-22 09:03 | disposition home or self-care (01) ==
LOC: ORWHC2ENDO 06:47
PROVIDERS: ATTEND Internal Medicine Gastroenterology
DX: R10.32 Left lower quadrant pain (principal); E78.5 Hyperlipidemia, unspecified; J45.909 Unspecified asthma, uncomplicated; F32.9 Major depressive disorder, single episode, unspecified; Z79.891 Long term (current) use of opiate analgesic; Z79.51 Long term (current) use of inhaled steroids; Z79.899 Other long term (current) drug therapy; Z88.5 Allergy status to narcotic agent
CPT/HCPCS: 45378; J2001; J2704

== ENCOUNTER 2018-11-18 00:12 | Emergency (ER) | payer OTHER ==
[2018-11-18 00:15] VITALS: RESP 18
[2018-11-18] MEDS ORDERED: KETOROLAC 60 MG/2 ML VIAL IM STA (00:25)
--- NOTE | 2018-11-18 01:23 | XR ---
EXAM: XR Left Knee, 3 views CLINICAL HISTORY: Pain TECHNIQUE: Three views of the left knee. COMPARISON: No relevant prior studies available. FINDINGS: Bones/joints: Unremarkable. No acute fracture. No dislocation. Soft tissues: Unremarkable. IMPRESSION: Normal left knee x-rays.
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
[2018-11-18 02:45] VITALS: BP 145/67; PULSE 86; TEMP 97.6
== END 2018-11-18 02:42 | disposition home or self-care (01) ==
LOC: EC 00:12
DX: S83.92XA Sprain of unspecified site of left knee, initial encounter (principal); J44.9 Chronic obstructive pulmonary disease, unspecified; F32.9 Major depressive disorder, single episode, unspecified; E78.5 Hyperlipidemia, unspecified; F17.200 Nicotine dependence, unspecified, uncomplicated; Z79.899 Other long term (current) drug therapy; Z88.5 Allergy status to narcotic agent; X50.1XXA Overexertion from prolonged static or awkward postures, initial encounter; Y93.F9 Activity, other caregiving; Y99.0 Civilian activity done for income or pay
CPT/HCPCS: 73564; 99283; 96372; L1830; J1885

== ENCOUNTER → 2019-10-05 | Outpatient (CLI) | payer OTHER ==
--- NOTE | 2019-10-06 10:43 | MM ---
Reason for exam: screening (asymptomatic). Last mammogram was performed 2 years and 8 months ago. History: Patient is postmenopausal. Took estrogen for 9 months. Physical Findings: A clinical breast exam by your physician is recommended on an annual basis and results should be correlated with mammographic findings. MG Screening Mammo w CAD Bilateral CC and MLO view(s) were taken. Prior study comparison: January 30, 2017, left breast MG work up mamm w CAD LT. January 28, 2017, bilateral MG screening mammo w CAD. The breast tissue is heterogeneously dense. This may lower the sensitivity of mammography. No suspicious abnormality. No significant changes when compared with prior studies. ASSESSMENT: Negative, BI-RAD 1 RECOMMENDATION: Routine screening mammogram of both breasts in 1 year.
== END | disposition home or self-care (01) ==
LOC: RADMAMWWP 08:26
PROVIDERS: ATTEND Internal Medicine
DX: Z12.31 Encounter for screening mammogram for malignant neoplasm of breast (principal)
CPT/HCPCS: 77067

== ENCOUNTER → 2020-10-27 | Outpatient (CLI) | payer OTHER ==
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
== END ==
LOC: RADCTMAIN 14:03
PROVIDERS: ATTEND Internal Medicine
DX: J84.10 Pulmonary fibrosis, unspecified (principal); J43.9 Emphysema, unspecified; I10 Essential (primary) hypertension
CPT/HCPCS: 71260; Q9967

== ENCOUNTER → 2021-01-16 | Outpatient (CLI) | payer OTHER ==
--- NOTE | 2021-01-19 07:44 | MM ---
Reason for exam: screening (asymptomatic). Last mammogram was performed 1 year and 3 months ago. History: Patient is postmenopausal. Took estrogen for 9 months. Physical Findings: A clinical breast exam by your physician is recommended on an annual basis and results should be correlated with mammographic findings. MG Screening Mammo w CAD Bilateral CC and MLO view(s) were taken. Prior study comparison: October 05, 2019, bilateral MG screening mammo w CAD. January 30, 2017, left breast MG work up mamm w CAD LT. The breast tissue is heterogeneously dense. This may lower the sensitivity of mammography. No significant changes when compared with prior studies. ASSESSMENT: Benign, BI-RAD 2 RECOMMENDATION: Routine screening mammogram of both breasts in 1 year.
== END | disposition home or self-care (01) ==
LOC: RADMAMWWP 10:54
PROVIDERS: ATTEND Internal Medicine
DX: Z12.31 Encounter for screening mammogram for malignant neoplasm of breast (principal); Z78.0 Asymptomatic menopausal state
CPT/HCPCS: 77067

== ENCOUNTER → 2021-07-02 | Outpatient (CLI) | payer OTHER ==
--- NOTE | 2021-07-02 15:01 | US ---
EXAMINATION TYPE: US venous doppler duplex LE LT DATE OF EXAM: 07/02/2021 2:47 PM COMPARISON: US CLINICAL HISTORY: M79.662 left lower limb pain. Patient stated has bilateral thigh pain, numbness and tingling, left leg greater than right, chronic left popliteal fossa pain; no visible leg swelling no alyssia by technologist today. SIDE PERFORMED: Left TECHNIQUE: The lower extremity deep venous system is examined utilizing real time linear array sonog zena with graded compression, doppler sonography and color-flow sonography. VESSELS IMAGED: Common Femoral Vein Deep Femoral Vein Greater Saphenous Vein * Femoral Vein Popliteal Vein Small Saphenous Vein * Proximal Calf Veins (* superficial vessels) Left Leg: Negative for DVT IMPRESSION: Grayscale, color doppler, spectral doppler imaging performed of the deep veins of the lo wer extremities. There is normal flow, compressibility, vascular waveforms.
--- NOTE | 2021-07-02 16:12 | XR ---
Lumbosacral spine HISTORY: Low back pain 5 views of the lumbosacral spine Correlation a prior exam 11/15/2012 Lumbar vertebral bodies show preserved height and alignment. There is no evident spondylolysis. There is multilevel spondylosis. Loss of disc height is greatest at L5-S1 with associated vacuum phenomeno n which has progressed. Sclerosis is present in the posterior elements of the lower lumbar spine. Ate lectatic vascular calcifications are noted within the aortoiliac distribution. impression: Degenerative disc disease and facet arthropathy.
== END | disposition home or self-care (01) ==
LOC: RADUSWWP 14:24
PROVIDERS: ATTEND Internal Medicine
DX: M79.662 Pain in left lower leg (principal); M51.36 Other intervertebral disc degeneration, lumbar region; M47.816 Spondylosis without myelopathy or radiculopathy, lumbar region
CPT/HCPCS: 72110

== ENCOUNTER → 2022-01-17 | Outpatient (CLI) | payer OTHER ==
--- NOTE | 2022-01-18 07:55 | BD ---
EXAMINATION TYPE: Axial Bone Density DATE OF EXAM: 01/17/2022 COMPARISON: NONE CLINICAL HISTORY: 51 year old Female. ICD-10 CODE: N95.1 POST MENOPAUSAL SYMPTOMS Height: 63 Weight: 173.4 FRAX RISK QUESTIONS: Alcohol (3 or more units per day): no Family History (Parent hip fracture): no Glucocorticoids (More than 3mos): no (Ex: prednisone, prednisolone, methylprednisolone, dexamethasone, and hydrocortisone). History of Fracture in Adulthood: yes Secondary Osteoporosis: 1. Type 1 Diabetes: no 2. Hyperthyroidism: no 3. Menopause before 45: yes 4. Malnutrition: no 5. Chronic liver disease: no Rheumatoid Arthritis: no Current Tobacco Use: yes RISK FACTORS HISTORY OF: Surgery to Spine/Hip(right/left)/Wrist (right/left): no Family History of Osteoporosis: no Active: yes Diet low in dairy products/other sources of calcium: yes Postmenopausal woman: yes Take estrogen and/or progesterone medications: yes How lon years Lost more than 2 inches in height since high school: no MEDICATIONS: Additional History: EXAM MEASUREMENTS: Bone mineral densitometry was performed using the ImpactFlo System. Bone mineral density as measured about the Lumbar spine is: ----- L1-L4(G/cm2): 1.084 T Score Values are as follows: ----- L1: -0.6 ----- L2: -1.0 ----- L3: -1.1 ----- L4: -0.7 ----- L1-L4: -0.8 Bone mineral density baseline Bone mineral density about the R hip (g/cm2): 0.851 Bone mineral density about the L hip (g/cm2): 0.881 T Score values are as follows: -----R Neck: -1.3 -----L Neck: -1.1 -----R Total: -0.8 -----L Total: -0.6 Bone mineral density : baseline FRAX%s: The graph provided illustrates a 10.3% chance for a major osteoporotic fx and a 1.3% chance f or the hips probability for fx in 10 years time. IMPRESSION: Osteopenia (T Score between -2.5 and -1). There is slightly increased risk of fracture and the patient may be considered for treatment. Re-Screen 2-5 years. NOTE: T-SCORE=SD OF THE YOUNG ADULT MEAN.
--- NOTE | 2022-01-18 14:53 | MM ---
Reason for Exam: Screening (asymptomatic). Last screening mammogram was performed 12 month(s) ago. Patient History: Menarche at age 12. First Full-Term at age 17. Right ovary removed at age 18. Hysterectomy at age 18. Postmenopausal. Estrogen for 9 months. Risk Values: Jocelyn 5 year model risk: 0.7%. NCI Lifetime model risk: 5.7%. Film Views: Bilateral CC views were taken. Bilateral MLO views were taken. Prior Study Comparison: 01/30/2017 Left Diagnostic Mammogram, [facility]. 10/05/2019 Bilateral Screening Mammogram, [facility]. 01/16/2021 Bilateral Screening Mammogram, [facility]. Tissue Density: The breast tissue is heterogeneously dense. This may lower the sensitivity of mammography. Findings: Analyzed By CAD. Stable small nodularity near lower right. There is no suspicious group of microcalcifications or new suspicious mass in either breast. Overall Assessment: Benign, BI-RAD 2 Management: Screening Mammogram of both breasts in 1 year. A clinical breast exam by your physician is recommended on an annual basis and results should be correlated with mammographic findings. Electronically signed and approved by: Wilmer Hale M.D.
== END | disposition home or self-care (01) ==
LOC: RADMAMWWP 17:47
PROVIDERS: ATTEND Internal Medicine
DX: Z12.31 Encounter for screening mammogram for malignant neoplasm of breast (principal); M85.89 Other specified disorders of bone density and structure, multiple sites; Z78.0 Asymptomatic menopausal state; Z90.721 Acquired absence of ovaries, unilateral
CPT/HCPCS: 77067; 77080

== ENCOUNTER → 2022-08-08 | Outpatient (CLI) | payer OTHER ==
[2022-08-08 12:37] LABS: INR 0.9 (<1.2); Prothrombin Time 9.6 sec (9.0-12.0)
[2022-08-08 12:49] LABS: Partial Thromboplastin Time 21.3 sec (22.0-30.0)
[2022-08-08 19:38] LABS: Basophils # (A) 0.04 X 10*3/uL (0.00-0.10); Basophils % (A) 0.4 %; Eosinophils # (A) 0.13 X 10*3/uL (0.04-0.35); Eosinophils % (A) 1.2 %; HCT 44.3 % (37.2-46.3); Immature Grans, Automated 0.2 %; Lymphocytes # (A) 2.72 X 10*3/uL (0.90-5.00); Lymphocytes % (A) 24.5 %; MCH 30.1 pg (27.0-32.0); MCHC 31.6 g/dL (32.0-37.0); MCV 95.3 fL (80.0-97.0); Mean Platelet Volume 10.4 fL (9.5-12.2); Monocytes # (A) 0.63 X 10*3/uL (0.20-1.00); Monocytes % (A) 5.7 %; NRBC Per 100 WBC 0 /100 WBCS (0.0-0.0); Neutrophils # (A) 7.57 X 10*3/uL (1.80-7.70); Platelet Count 402 X 10*3/uL (140-440); RBC 4.65 X 10*6/uL (4.10-5.20); RDW 14.1 % (11.5-14.5); WBC 11.11 X 10*3/uL (4.50-10.00)
[2022-08-08 20:10] LABS: Appearance,Urine Clear (Clear); Bilirubin,Urine Negative (Negative); Blood,Urine Negative (Negative); Color,Urine Yellow (Yellow); Ketones,Urine Negative (Negative); Nitrite,Urine Negative (Negative); PH, Urine 5.5 (5.0-8.0); Specific Gravity,Urine 1.013 (1.001-1.030); Urobilinogen,Urine 0.2 (0.2,1.0)
[2022-08-08 22:25] LABS: ALT 18 U/L (8-44); AST 11 U/L (13-35); African American GFR (CKD) 119.8 (60.0-200.0); Albumin 4.5 g/dL (3.8-4.9); Albumin/Globulin Ratio 1.96 (1.60-3.17); Alkaline Phosphatase 139 U/L (41-126); BUN/Creat Ratio 20.33 Ratio (12.00-20.00); Blood Urea Nitrogen 12.2 mg/dL (9.0-27.0); Calcium 10.1 mg/dL (8.7-10.3); Carbon Dioxide 24.1 mmol/L (20.0-27.5); Chloride 103 mmol/L (96-109); Globulin 2.3 g/dL (1.6-3.3); Glucose 108 mg/dL (70-110); Non-African American GFR(CKD) 103.3 (60.0-200.0); Potassium 4.4 mmol/L (3.5-5.5); Sodium 141 mmol/L (135-145); Total Bilirubin <0.15 mg/dL (0.30-1.20); Total Protein 6.8 g/dL (6.2-8.2)
== END | disposition home or self-care (01) ==
LOC: LABWHC1 10:50
PROVIDERS: ATTEND Neurological Surgery
DX: G57.12 Meralgia paresthetica, left lower limb (principal)
CPT/HCPCS: 36415; 80053; 81003; 83036; 85025; 85610; 85730; 87086

== ENCOUNTER → 2023-02-24 | Outpatient (CLI) | payer OTHER ==
--- NOTE | 2023-02-24 09:47 | MM ---
Reason for Exam: Screening (asymptomatic). Last mammogram was performed 1 year(s) and 2 month(s) ago. Patient History: Menarche at age 12. First Full-Term at age 17. Right ovary removed at age 18. Hysterectomy at age 18. Postmenopausal. Currently using Estrogen, starting at age 46. Risk Values: Jocelyn 5 year model risk: 0.7%. Prior Study Comparison: 10/05/2019 Bilateral Screening Mammogram, [facility]. 01/16/2021 Bilateral Screening Mammogram, [facility]. 01/17/2022 Bilateral MG screening mammo w CAD, [facility]. Tissue Density: The breast tissue is heterogeneously dense. This may lower the sensitivity of mammography. Findings: Analyzed By CAD. There is no suspicious group of microcalcifications or new suspicious mass in either breast. Overall Assessment: Benign, BI-RAD 2 Management: Screening Mammogram of both breasts in 1 year. . Patient should continue monthly self-breast exams. A clinical breast exam by your physician is recommended on an annual basis. This exam should not preclude additional follow-up of suspicious palpable abnormalities. Note on Jocelyn scores and lifetime risk: 1. A Jocelyn score greater than 3% is considered moderate risk. If this is the case, consider specialist referral to assess eligibility for a risk reducing agent. 2. If overall lifetime risk for the development of breast cancer is 20% or higher, the patient may qualify for future screening with alternating mammogram and breast MRI. Electronically signed and approved by: Venkat Floyd M.D. Radiologis
== END | disposition home or self-care (01) ==
LOC: RADMAMWWP 07:46
PROVIDERS: ATTEND Internal Medicine
DX: Z12.31 Encounter for screening mammogram for malignant neoplasm of breast (principal); Z78.0 Asymptomatic menopausal state
CPT/HCPCS: 77067

== ENCOUNTER → 2023-04-18 | Outpatient (CLI) | payer OTHER ==
--- NOTE | 2023-04-18 16:02 | US ---
EXAMINATION TYPE: US venous doppler duplex UE RT DATE OF EXAM: 04/18/2023 COMPARISON: NONE CLINICAL INDICATION: Female, 53 years old with history of RUE; R22.31; Pt states right arm pain, no k nown prior DVT, not on blood thinners SIDE PERFORMED: Right Right Arm: Negative for DVT IMPRESSION: Grayscale, color doppler, spectral doppler imaging performed of the deep veins of the upper extremiti es. There is normal flow, compressibility and vascular waveforms.
== END | disposition home or self-care (01) ==
LOC: RADUSWWP 12:16
PROVIDERS: ATTEND Internal Medicine
DX: R22.31 Localized swelling, mass and lump, right upper limb (principal)

== ENCOUNTER → 2023-06-02 | Outpatient (CLI) | payer OTHER ==
[2023-06-02 15:33] LABS: HCT 44.7 % (37.2-46.3); HGB 14.6 d/dL (12.0-15.0); MCH 29.9 pg (27.0-32.0); MCHC 32.7 d/dL (32.0-37.0); MCV 91.6 FL (80.0-97.0); Mean Platelet Volume 9.6 FL (9.5-12.2); NRBC Per 100 WBC 0 X 10*3/uL (0.00-0.01); Platelet Count 508 X 10*3/uL (140-440); RBC 4.88 X 10*6/uL (4.10-5.20); RDW 13.5 % (11.5-14.5); WBC 21.53 X 10*3/uL (4.50-10.00)
[2023-06-02 16:03] LABS: Anion Gap 13.2 mmol/L (4.00-12.00); Carbon Dioxide 26.8 mmol/L (21.6-31.8); Potassium 4.3 mmol/L (3.5-5.5)
[2023-06-02 16:25] LABS: Basophils # (M) 0 X 10*3/uL (0.00-0.10)
[2023-06-02 16:33] LABS: Eosinophils # (M) 0.22 X 10*3/uL (0.04-0.35); Lymphocytes # (M) 9.47 X 10*3/uL (0.90-5.00); Monocytes # (M) 1.29 X 10*3/uL (0.20-1.00); Neutrophils % (M) 49 %; RBC Morphology Normal (Normal)
== END | disposition home or self-care (01) ==
LOC: LABPAT 08:38
PROVIDERS: ATTEND Orthopaedic Surgery Hand Surgery
DX: Z01.812 Encounter for preprocedural laboratory examination (principal); G56.02 Carpal tunnel syndrome, left upper limb
CPT/HCPCS: 80051; 85025

== ENCOUNTER → 2023-06-30 | Outpatient (CLI) | payer OTHER ==
--- NOTE | 2023-06-30 16:23 | US ---
EXAMINATION TYPE: US venous doppler duplex UE RT DATE OF EXAM: 06/30/2023 COMPARISON: NONE CLINICAL INDICATION: Female, 53 years old with history of RUE; I82.629 ACUTE EMBOLISM AND THROMBOSIS; right arm pain SIDE PERFORMED: Right Technique: Grayscale imaging of the right upper extremity vasculature with color Doppler and spectral waveforms Findings: Right Arm: Negative for DVT, Grayscale, color doppler, spectral doppler imaging performed of the deep veins of the upper extremities. There is normal flow, compressibility and vascular waveforms. IMPRESSION: No evidence for deep vein thrombosis of the right upper extremity.
== END | disposition home or self-care (01) ==
LOC: RADUSWWP 15:33
PROVIDERS: ATTEND Internal Medicine
DX: I82.621 Acute embolism and thrombosis of deep veins of right upper extremity (principal)

== ENCOUNTER 2023-07-23 08:15 | Day surgery (SDC) | payer OTHER ==
[2023-07-21 10:57] VITALS: BMI 30.5
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
[~2023-07-23 08:15] MED LIST changes: +LIDOCAINE 1% (10MG/ML) FOR IV START INTRADERMA PRN; -LIDOCAINE 1% 20 ML VIAL (10MG/ML) FOR IV START INTRADERMA PRN; +ONDANSETRON 4 MG/2 ML VIAL IVP ONE; +Pre Op ABX Message 1 EACH MISC MISCELLANE ONE; +fentaNYL (PF) 50 MCG/ML 2 ML AMP IVP PRN
[2023-07-23] MEDS ORDERED: DEXAMETHASONE SOD PHOSPHATE 4 MG/ML 1 ML VIAL IVP ONE (09:10)
[2023-07-23] MEDS ORDERED: MIDAZOLAM 2 MG/2 ML VIAL ONE (09:31)
[2023-07-23] MEDS ORDERED: PROPOFOL 10 MG/ML 20 ML VIAL IV ONE (09:31)
[2023-07-23] MEDS ORDERED: fentaNYL (PF) 50 MCG/ML 2 ML AMP ONE (09:31)
[2023-07-23 09:36] VITALS: RESP 16; TEMP 98
[2023-07-23] MEDS ORDERED: LIDOCAINE 2% INJ 20 MG/ML SQ ONE ×2 (09:38)
[2023-07-23] MEDS ORDERED: BUPIVACAINE (PF) 0.5% 30 ML VIAL SQ ONE ×2 (09:38)
--- NOTE | 2023-07-23 10:02 | P.OP ---
Date of Procedure: 07/23/23 Preoperative Diagnosis: 1.) Left carpal tunnel syndrome 2.) Left middle finger trigger finger 3.) Left ring finger trigger finger Postoperative Diagnosis: 1.) Left carpal tunnel syndrome 2.) Left middle finger trigger finger 3.) Left ring finger trigger finger Procedure(s) Performed: 1.) Left endoscopic carpal tunnel release 2.) Left middle finger trigger finger A1 maria teresa release 3.) Left ring finger trigger finger A1 maria teresa release Anesthesia: MAC Surgeon: Alonso Griffith Onshore Diver #1: Rohit Hahn Estimated Blood Loss (ml): 0 Pathology: none sent Condition: stable Disposition: PACU Description of Procedure: This is a 53 year old female who presents today for a left endoscopic carpal tunnel release and left middle and ring finger trigger finger release after having failed conservative treatment in the past. Risks and benefits of surgery were discussed with the patient including bleeding, damage to surrounding tissue, infection, need to convert to open procedure, need for further surgery as well as risks of anesthesia including pulmonary embolism and even and the patient wished to proceed with surgical intervention. The patients was seen in the pre-operative area by myself. Consent and H&P were completed and updated. The correct extremity was marked in the pre-operative area by myself and all other questions were answered. Operative Narrative: The patient was brought to the operating room by the department of anesthesia. They remained on the portable stretcher and a rolling hand table was brought to the side of the operative extremity. Pre-operative time out was performed indicating the correct patient, procedure and laterality. All in the room agreed. The patient was then drifted off to sleep by the department of anesthesia. MAC anesthesia was utilized and a 50:50 mixture of 1% Lidocaine and 0.5% bupivacaine was injected into the subcutaneous tissues of the palmar skin, 10ccs total. A nonsterile tourniquet was then applied to the operative extremity and the left upper extremity was then prepped and draped in normal sterile fashion. The operative extremity was the exsanguinated with an esmarch bandage and the tourniquet was inflated to 250mmHg. 15 blade scalpel was utilized to make a transverse incision on the palmar skin just ulnar to the palmaris longus tendon at the level of the distal wrist crease. Ragnell retractor was then placed radially and blunt dissection was performed to reveal the distal forearm fascia. This was lifted with fine Blair pick ups and Littler tenotomy scissors were then used to open the forearm fascia transversely and a double skin hook was then placed. Hamate finder was placed into the carpal tunnel and then sequential sized dilators were inserted followed by the synovial elevator to separate the flexor tenosynovium from the undersurface of the transverse carpal ligament and a washboard texture was felt. The MicroAire endoscopic carpal tunnel release system gun was the then inserted into the carpal tunnel hugging the deep portion of the transverse carpal ligament in line with the base of the ring finger. Transverse fibers of the ligament were directly visualized. Pressure was applied on the palm to reveal the distal extent of the transverse carpal ligament. The blade was then deployed and the distal half of the transverse carpal ligament was released. The scope was then brought distal again and remaining transverse fibers were incised with the blade. The proximal half of the transverse carpal ligament was then divided and again the scope was advanced distal and remaining transverse fibers were incised with the blade. The radial and ulnar leaflets were directly visualized and mobile consistent with complete release. Tenotomy scissors were then utilized to release the remaining distal forearm fascia under direct visualization taking care to preserve the palmar cutaneous branch of the median nerve. Skin closure was performed with interrupted 4-0 Monocryl suture followed by steri strips. Oblique incision was made centered at the base of the ring and middle fingers. Blunt dissection was taken down to the level of the A1 maria teresa of the ring finger. Ragnell retractors were placed both radially and ulnarly to protect neur ovascular bundles. Littler tenotomy scissors were then used to release the A1 maria teresa from proximal to distal under direct visualization. Proximal fascial attachments were released. The tendon was then taken through range of motion and no locking or catching was appreciated. Blunt dissection was taken down to the level of the A1 maria teresa of the middle finger through the same incision. Ragnell retractors were placed both radially and ulnarly to protect neurovascular bundles. Littler tenotomy scissors were then used to release the A1 maria teresa from proximal to distal under direct visualization. Proximal fascial attachments were released. The tendon was then taken through range of motion and no locking or catching was appreciated. The wound was then closed with interrupted 4-0 nylon sutures in a horizontal mattress fashion. Sterile dressing consisting of adaptic, 4x4s, webril, and an chelita wrap was applied. Tourniquet was let down and the hand immediately was well perfused. The patient was then woken by the department of anesthesia and transferred to PACU in stable condition. Rohit ASIF was present for the case in its entirety and assisted in major portions of the case and protection of vital neurovascular structures. Alonso Griffith D.O. Orthopedic Hand/Upper Extremity Surgeon
[2023-07-23 10:36] VITALS: BP 129/77; PULSE 103
== END 2023-07-23 10:39 | disposition home or self-care (01) ==
LOC: OR 08:15
PROVIDERS: ATTEND Orthopaedic Surgery Hand Surgery
DX: G56.02 Carpal tunnel syndrome, left upper limb (principal); M65.332 Trigger finger, left middle finger; M65.342 Trigger finger, left ring finger; J44.9 Chronic obstructive pulmonary disease, unspecified; I63.9 Cerebral infarction, unspecified; E78.5 Hyperlipidemia, unspecified; I10 Essential (primary) hypertension; M19.90 Unspecified osteoarthritis, unspecified site; Z86.73 Personal history of transient ischemic attack (TIA), and cerebral infarction without residual deficits; Z90.49 Acquired absence of other specified parts of digestive tract; Z90.710 Acquired absence of both cervix and uterus; Z98.890 Other specified postprocedural states; F32.A Depression, unspecified; Z87.891 Personal history of nicotine dependence; Z79.51 Long term (current) use of inhaled steroids; Z79.82 Long term (current) use of aspirin; Z79.899 Other long term (current) drug therapy; Z88.5 Allergy status to narcotic agent
CPT/HCPCS: 29848; 26055 ×2; J2001; J2250; J1100; J2405; J3010; J2704; J0665

== ENCOUNTER → 2023-07-28 | Outpatient (CLI) | payer OTHER ==
--- NOTE | 2023-07-28 19:15 | CT ---
EXAMINATION TYPE: CT lumbar spine wo con DATE OF EXAM: 07/28/2023 COMPARISON: None HISTORY: low back pain, pre surgical CT DLP: 1174.10 mGycm CONTRAST: CT scan of the lumbar is performed , patient injected with mL of . TECHNIQUE: CT of the lumbar spine is performed on a spiral scan at 3 mm thick sections. Reconstructed images are performed in the coronal and sagittal planes. FINDINGS: T12-L1: No focal disc herniation or significant disc bulge is evident. No spinal canal stenosis or neural foraminal stenosis is present. L1-L2: No focal disc herniation or significant disc bulge is evident. No spinal canal stenosis or n eural foraminal stenosis is present L2-L3: No focal disc herniation or significant disc bulge is evident. No spinal canal stenosis or n eural foraminal stenosis is present L3-L4: No focal disc herniation or significant disc bulge is evident. No spinal canal stenosis or n eural foraminal stenosis is present L4-L5: Mild disc bulge has anterior thecal sac flattening. Facet hypertrophy with ligamentum flavum l axity is posterior lateral thecal sac compression. Some mild spinal canal narrowing is present. L5-S1: There is loss of disc height and vacuum disc phenomenon present at L5-S1. Facet degenerative c hanges are present. Vertebral alignment appears normal. Note is made of an inferior pole left renal cyst. IMPRESSION: Spinal canal narrowing at L4-5 secondary to mild disc bulge and facet hypertrophy with ligamentum fla vum laxity. 2. Degenerative disc changes L5-S1
== END | disposition home or self-care (01) ==
LOC: RADCTMAIN 12:55
PROVIDERS: ATTEND Orthopaedic Surgery
DX: Z01.818 Encounter for other preprocedural examination (principal); M51.37 Other intervertebral disc degeneration, lumbosacral region; M51.26 Other intervertebral disc displacement, lumbar region; M47.816 Spondylosis without myelopathy or radiculopathy, lumbar region
CPT/HCPCS: 72131

== ENCOUNTER → 2023-08-07 | Outpatient (CLI) | payer OTHER | END | disposition home or self-care (01) | LOC: LABPAT 08:17 | PROVIDERS: ATTEND Orthopaedic Surgery | DX: Z01.812 Encounter for preprocedural laboratory examination (principal); M43.16 Spondylolisthesis, lumbar region; M47.817 Spondylosis without myelopathy or radiculopathy, lumbosacral region; M48.061 Spinal stenosis, lumbar region without neurogenic claudication; Z22.322 Carrier or suspected carrier of Methicillin resistant Staphylococcus aureus | CPT/HCPCS: 86850; 86900; 86901; 87070 ==

== ENCOUNTER 2023-08-19 05:36 | Observation (INO) | payer OTHER ==
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
[~2023-08-19 05:36] MED LIST changes: +ACETAMINOPHEN TAB 500 MG TAB PO PRN; +GABAPENTIN 300 MG CAP PO PRN; -LACTATED RINGERS 1,000 ML IV SCH; -LIDOCAINE 1% (10MG/ML) FOR IV START INTRADERMA PRN; -ONDANSETRON 4 MG/2 ML VIAL IVP ONE; +ONDANSETRON 4 MG/2 ML VIAL IVP PRN; -Pre Op ABX Message 1 EACH MISC MISCELLANE ONE; +TRANEXAMIC 1,000 MG/100ML-NACL 1,000 MG in SALINE 1 100ML.BAG IVPB PRN; -fentaNYL (PF) 50 MCG/ML 2 ML AMP IVP PRN
[2023-08-19] MEDS ORDERED: LACTATED RINGERS 1,000 ML IV ONE ×3 (06:27→09:24)
[2023-08-19 06:59] LABS: Basophils # (A) 0.1 k/uL (0-0.2); Basophils % (A) 1 %; Eosinophils # (A) 0.2 k/uL (0-0.7); Eosinophils % (A) 2 %; HCT 38.6 % (34.0-46.0); HGB 12.6 gm/dL (11.4-16.0); Lymphocytes % (A) 30 %; MCH 29.8 pg (25.0-35.0); MCHC 32.7 g/dL (31.0-37.0); MCV 91.1 fL (80.0-100.0); Mean Platelet Volume 7.6; Monocytes # (A) 0.6 k/uL (0-1.0); Monocytes % (A) 5 %; Neutrophils # (A) 6.1 k/uL (1.3-7.7); Neutrophils % (A) 61 %; Platelet Count 366 k/uL (150-450); RBC 4.24 m/uL (3.80-5.40); RDW 14.1 % (11.5-15.5); WBC 10.1 k/uL (3.8-10.6)
[2023-08-19] MEDS ORDERED: HYDROmorphone (PF) 1 MG/ML ONE (07:25)
[2023-08-19] MEDS ORDERED: KETAMINE HCL IN 0.9 % NACL 50 MG/5 ML SYRINGE ONE (07:25)
[2023-08-19] MEDS ORDERED: NEOSTIGMINE 1 MG/ML 10 ML VIAL ONE (07:25)
[2023-08-19] MEDS ORDERED: ROCURONIUM 10 MG/ML (5 ML VIAL) IV ONE (07:25)
[2023-08-19] MEDS ORDERED: MIDAZOLAM 2 MG/2 ML VIAL ONE (07:25)
[2023-08-19] MEDS ORDERED: PHENYLEPHRINE-0.9% NACL SYG 1,000 MCG/10 ML SYRINGE ONE (07:25)
[2023-08-19] MEDS ORDERED: PROPOFOL 10 MG/ML 20 ML VIAL IV ONE (07:25)
[2023-08-19] MEDS ORDERED: LIDOCAINE 1% INJ 10MG/ML (20 ML MDV) ONE (07:25)
[2023-08-19] MEDS ORDERED: GLYCOPYRROLATE 0.2 MG/ML 2 ML VIAL ONE (07:25)
[2023-08-19] MEDS ORDERED: ALBUTEROL HFA INHALER INHALATION ONE (07:25)
[2023-08-19] MEDS ORDERED: fentaNYL (PF) 50 MCG/ML 2 ML AMP ONE (07:25)
[2023-08-19] MEDS ORDERED: TRANEXAMIC 1,000 MG/100ML-NACL PREMIX BAG ONE (07:25)
[2023-08-19] MEDS ORDERED: SUCCINYLCHOLINE CHLORIDE 200 MG/10 ML VIAL IV ONE (07:25)
[2023-08-19 07:30] LABS: African American GFR (CKD) >90 (>60 ml/min/1.73 sqM); Anion Gap 7 mmol/L; Blood Urea Nitrogen 12 mg/dL (7-17); Calcium 9.3 mg/dL (8.4-10.2); Carbon Dioxide 25 mmol/L (22-30); Chloride 107 mmol/L (98-107); Glucose 108 mg/dL (74-99); Non-African American GFR(CKD) >90 (>60 ml/min/1.73 sqM); Sodium 139 mmol/L (137-145)
[2023-08-19] MEDS ORDERED: GELATIN SPONGE,ABSORB (LARGE) 1 EACH SPONGE TOPICAL ONE (08:00)
[2023-08-19] MEDS ORDERED: THROMBIN (BOVINE) 5,000 UNIT VIAL TOPICAL ONE (08:00)
[2023-08-19] MEDS ORDERED: LIDOCAINE 2%-EPI 1:100,000 20 ML VIAL SQ ONE (10:04)
[2023-08-19] MEDS ORDERED: BUPIVACAINE (PF) 0.25% 30 ML VIAL SQ ONE ×2 (10:05)
[2023-08-19] MEDS ORDERED: CYCLOBENZAPRINE 5 MG TAB PO PRN (10:51)
[2023-08-19] MEDS ORDERED: ONDANSETRON 4 MG/2 ML VIAL IVP PRN (10:51)
[2023-08-19] MEDS ORDERED: HYDROcodone/APAP 5-325MG 1 EACH TAB PO PRN (10:51)
[2023-08-19] MEDS ORDERED: MAGNESIUM HYDROXIDE 2,400 MG/30 ML CUP PO PRN (10:51)
[2023-08-19] MEDS ORDERED: NA PHOS,M-B/NA PHOS,DI-BA 133 ML ENEMA RECTAL PRN (10:51)
[2023-08-19] MEDS ORDERED: HYDROcodone/APAP 10-325MG 1 EACH TAB PO PRN (10:51)
[2023-08-19] MEDS ORDERED: SENNOSIDES-DOCUSATE SODIUM 1 EACH TAB PO PRN (10:51)
[2023-08-19] MEDS ORDERED: bisacodyL 10 MG SUPP RECTAL PRN (10:51)
[2023-08-19] MEDS ORDERED: HYDROcodone/APAP 7.5-325MG 1 EACH TAB PO PRN (10:54)
--- NOTE | 2023-08-19 11:03 | P.OP ---
Date of Procedure: 08/19/23 Preoperative Diagnosis: M43.16 Spondylolisthesis, lumbar region M47.896 Other spondylosis, lumbar region M47.897 Other spondylosis, lumbosacral region M51.16 Intervertebral disc disorders with radiculopathy, lumbar region M51.17 Intervertebral disc disorders with radiculopathy, lumbosacral region Postoperative Diagnosis: M43.16 Spondylolisthesis, lumbar region M47.896 Other spondylosis, lumbar region M47.897 Other spondylosis, lumbosacral region M51.16 Intervertebral disc disorders with radiculopathy, lumbar region M51.17 Intervertebral disc disorders with radiculopathy, lumbosacral region Procedure(s) Performed: 21197 ARTHRODESIS, COMBINED POSTERIOR OR POSTEROLATERAL TECHNIQUE WITH POSTERIOR INTERBODY TECHNIQUE INCLUDING LAMINECTOMY AND/OR DISCECTOMY SUFFICIENT TO PREPARE INTERSPACE (OTHER THAN FOR DECOMPRESSION), SINGLE INTERSPACE, LUMBAR; 4- 5 78115 LAMINECTOMY, FACETECTOMY, OR FORAMINOTOMY (UNILATERAL OR BILATERAL WITH DECOMPRESSION OF SPINAL CORD, CAUDA EQUINA AND/OR NERVE ROOT[S] [EG, SPINAL OR LATERAL RECESS STENOSIS]), DURING POSTERIOR INTERBODY ARTHRODESIS, LUMBAR; 4-5 39377 POSTERIOR SEGMENTAL INSTRUMENTATION (EG, PEDICLE FIXATION, DUAL RODS WITH MULTIPLE HOOKS AND SUBLAMINAR WIRES); 3 TO 6 VERTEBRAL SEGMENTS 07248 ARTHRODESIS, COMBINED POSTERIOR OR POSTEROLATERAL TECHNIQUE WITH POSTERIOR INTERBODY TECHNIQUE INCLUDING LAMINECTOMY AND/OR DISCECTOMY SUFFICIENT TO PREPARE INTERSPACE (OTHER THAN FOR DECOMPRESSION), SINGLE INTERSPACE, LUMBAR; EACH ADDITIONAL INTERSPACE LUMBAR 5-SACRAL 1. 97194 LAMINECTOMY, FACETECTOMY, OR FORAMINOTOMY (UNILATERAL OR BILATERAL WITH DECOMPRESSION OF SPINAL CORD, CAUDA EQUINA AND/OR NERVE ROOT[S] [EG, SPINAL OR LATERAL RECESS STENOSIS]), DURING POSTERIOR INTERBODY ARTHRODESIS, LUMBAR; EACH ADDITIONAL SEGMENT, LUMBAR 5-SACRAL 1 61013 x2 INSERTION OF INTERBODY BIOMECHANICAL DEVICE(S) (EG, SYNTHETIC CAGE, MESH) WITH INTEGRAL ANTERIOR INSTRUMENTATION FOR DEVICE ANCHORING (EG, SCREWS, FLANGES), WHEN PERFORMED, TO INTERVERTEBRAL DISC SPACE IN CONJUNCTION WITH INTERBODY ARTHRODESIS, EACH INTERSPACE; L4-5, L5-S1. 68721 Stereotactic computer-assisted (navigational) procedure; spinal (List separately in addition to code for primary procedure); [employer] NAVIGATION FOR SCREW PLACEME NT. USE OF IONM ALL SCREWS TESTING > 20mA USE OF IO MICROSCOPE Implants: -DIMITRIOS EVEREST MIS SCREW AND CORDELL SYSTEM -GLOBUS RISE INTRALIFT X1; -GLOBUS SABLE 10-17MM 15 DEG X10 MM X1 -MAGNATOS, IFACTOR, ARTHROCELL, CONTOUR, AUTOGRAFT Anesthesia: GETA Surgeon: David Angel Webfocus Developer #1: Cirilo Elkins (WAS PRESENT AND ASSISTED WITH ALL ASPECTS OFTHE CASE FROM POSITION TO LCOUSRE) Estimated Blood Loss (ml): 50 IV fluids (ml): 1,500 Urine output (ml): 650 Pathology: none sent Condition: stable Disposition: PACU Indications for Procedure: Ms. High is presenting for evaluation of low back and bilateral lower extremity pain, lower extremity numbness, tingling, and weakness. It was my pleasure to have seen and examined Ms. High. In our visit today we have had a chance to go over subjective complaints, physical examination findings and treatments including the natural course history without intervention and various interventional options. The patients imaging demonstrates: XRay taken on 05/12/23 of Lumbar Spine AP/LAT/FLEX/EXT/AP pelvis: - Images reviewed. - L4-5 grade I spondylolisthesis with accentuation of flexion films and near resolution on extension films with segmental angulation, pars elongation, facet arthropathy and foraminal stenosis noted. - L5-S1 severe spondylosis with degenerative disc collapse, facet arthroses, foraminal stenosis related. - LL is around 48 deg - PI is about 68 deg - No fracture or lesions AP pelvis: shows congruent level pelvis w/o fracture MRI lumbar spine done a blue water open MRI on 01/30/2023 without contrast: - Images reviewed - Severe spondylosis L4 through S1 worse at L5-S1 with near complete degenerative disc collapse Modic endplate changes facet arthropathy and bilateral foraminal stenosis. - L4-L5 grade 1 spondylolisthesis nearly completely reduced in the supine film. Bilateral foraminal stenosis related. - Body facets noted L4 5 and L5-S1. Facet cyst noted on the left-hand side at L4-L5 as well contributes to lateral recess and foraminal stenosis. - No acute fracture lesion noted On physical exam, Ms. High demonstrates: A continued ache-like pain throughout the low back that radiates down into the bilateral lower extremities. She states her lower extremity pain is associated with numbness and tingling bilaterally. She notes worsening lower extremity weakness bilaterally, worse upon the left side compared to the left. The patient states that her symptoms worsen after all activity, which makes it very difficult for her to complete any of her activities of daily living. She reports experiencing severe sleep disturbances related to her ongoing pain and associated symptoms. I have explained to the patient that as their condition progresses it will cause further neurological deficits and eventual paralysis. Based on the patients imaging, physical exam, and the rapid progression and disabling nature of their symptoms, at this time I recommend surgery in the form of a: L4 to S1 left minimally invasive transforaminal lumbar interbody fusion. I discussed the risk and benefits of this procedure at length with Ms. High. The patient agreed to considered pursuing the procedure abovementioned. Prior to surgery, she should follow up with her PCP (Cardio, ID, IM etc) for clearance. Questions were invited and answered, and the patient wishes to proceed as outlined below. Currently, I am recommendin.L4 to S1 left minimally invasive transforaminal lumbar interbody fusion Description of Procedure: L4-S1 RI PLIBF/TLIF (NALLELY) The patient was seen and examined in the preoperative area. All preoperative protocols were followed. Informed consent was obtained, risks and benefits of the procedure were discussed at length. Risks including bleeding infection damage to the surrounding tissue and risk of re-operation were discussed with the patient. Risk of anesthesia up to and including was discussed with the patient. These are outlined in the risk review. They were willing to accept these risks and all the risks of surgery. The patient was given a weight-based dose of antibiotics in the form of 2 g Ancef. The patient was seen and evaluated by the anesthesia team who deemed them fit for surgery. The site was marked, the patient was willing to proceed with the procedure. The patient was transferred to the operative suite by the Department of anesthesia. They were then drifted off to sleep by the department anesthesia and GETA was performed. The patient tolerated this well. Norris catheter was placed by nursing staff, a-traumatically. Once confirmation of lines and ventilation the patient was transferred to a prone Nate table very carefully. All bony prominences including wrists, elbows, axilla, chest, hips, and thighs, and feet were padded very well. Special attention was paid to the genitalia, and these were padded accordingly. SCDs were placed on bilateral lower extremities and were connected. Arms were well padded and placed on arm boards up and out in the 90/90 position. Once in position, again we confirmed good ventilation capabilities and that lines were running appropriately. The patients Lumbar spine was then exposed. 1010s were placed outlining the incision site. Standard alcohol was used to clean the incision site and allowed to dry. C-arm was used to needle localize the pedicles at L4-S1 and bio-liya the patient and confirm level for incision which was marked with a skin marker. Operative briefing was performed with all teams and everyone in agreement to proceed. The patient was then prepped and draped in a normal sterile fashion. Timeout was then performed, and all parties agreed with the procedure to be performed. Skin nicks were made over PSIS on the right. Pins placed and the tracker for [employer] Navigation was placed. Z-Drape placed and a 3D Zhiem spin was registered. Once it was confirmed to be accurate, screws were planned with a pointer and skin incision made paramedian. Then drill gide was then used to target pedicles bilaterally at L4-S1. Once accessed wires were placed in their void. Perfect scalpel was used over the wires contralateral on the right to create a path and measure screw length at L4-S1. Pinapple decorticator was used to decorticate the TP and Facet joints over the wires. Screws were then placed over wires on the Right side. Once screw was at the back of the body wire was removed. The screws were confirmed to be in good position on AP and lateral. We then tested screws and they all tested above 20 mA. Attention was then turned to inter-body fusion at L5-S1. Tubular retractor system was placed at the interspace of L5-S1 using biplanar c arm. Once in position and dilated up to 26mm tube it was locked to the bed and confirmed in good position. Microscope was then brought in for visualization. Limited myomectomy was performed and laminectomy, complete facetectomy and foraminotomy performed at L5-S1 using high speed monica and Kerrison rongure. The ligamentum was removed and dural sac decompressed. Exiting and traversing roots visualized and decompressed. Neural elements were then protected, and disc space accessed with an osteotome. Sequential shaving then done under lateral imaging and complete discectomy performed using krunal, pituitary and curette. Once good bleeding endplates accomplished and good height bahai with trials, a combination of autograft, allograft and synthetic placed anterior in the disc space. The cage was then selected and impacted into place under lateral imag ing. The cage was then expanded restoring height, lordosis and alignment. The cage was backfilled with bone graft through a funnel. The feather trimmer removed and the area inspected. Good cage placement, stable cage and no injuries. Area was irrigated copiously, and meticulous hemostasis achieved. The tubular retractor was then removed under direct visualization. Attention was then turned to inter-body fusion at L4-5. Tubular retractor system was placed at the interspace of L4-5 using biplanar c arm. Once in position and dilated up to 26mm tube it was locked to the bed and confirmed in good position. Microscope was then brought in for visualization. Limited myomectomy was performed and laminectomy, complete facetectomy and foraminotomy performed at L4-5 using high speed monica and Kerrison rongure. The ligamentum was removed and dural sac decompressed. Exiting and traversing roots visualized and decompressed. Neural elements were then protected, and disc space accessed with an osteotome. Sequential shaving then done under lateral imaging and complete discectomy performed using krunal, pituitary and curette. Once good bleeding endplates accomplished and good height bahai with trials, a combination of autograft, allograft and synthetic placed anterior in the disc space. The cage was then selected and impacted into place under lateral imaging. The cage was then expanded restoring height, lordosis and alignment. The cage was backfilled with bone graft through a funnel. The feather trimmer removed and area inspected. Good cage placement, stable cage and no injuries. Area was irrigated copiously, and meticulous hemostasis achieved. The tubular retractor was then removed under direct visualization. Pinapple was then used again over screws to decorticate the TPs on this side over wires. Screws were then selected and placed over the previously placed wires on the left side. This was done in the fashion described above. Screws were then tested, and all tested above 20 mA. Cordell length was then measured, and rods selected. They were then placed through the MIS tabs, subfascial. These were then locked into place with set screws and final tightened. Cordell holders removed and images taken showing good placement of rods good lordosis and bahai of height. Tabs were broken off. Wounds were then copiously irrigated with NSS. [place] used for TP decortication and mixture of MagnatOs, allograft and autograft packed posterolateral. Facia was then closed with 0 Vircyl on a Scorpion suture passer for MIS closure. Deep subq closed with 0 Vicryl. Superficial subq closed with 2-0 Vicryl and skin with obdulia. Wound edges approximated very well. Wound was then cleaned with alcohol and dried. Wounds dressed with Optifoam dressings. The patient was then transferred off the table back to their hospital bed a- traumatically. They were extubated by the department of anesthesia. They were then transferred to PACU in stable condition having tolerated the procedure with no complications.
[2023-08-19] MEDS: HYDROmorphone 0.5 MG/0.5 ML SYRINGE IVP PRN (11:57)
--- NOTE | 2023-08-19 12:14 | FL ---
EXAMINATION TYPE: FL guidance operating room, XR lumbar spine 2 or 3V Intraoperative/procedural fluor oscopic services were provided. Total fluoroscopy time is 1.2 minutes with a total of 4 submitted kyle ges to PACS. Please see the operative/procedural note for further details. DAP: 5716 Gycm2
[2023-08-19 12:16] VITALS: RESP 18
[2023-08-19] MEDS ORDERED: HYDROmorphone 0.5 MG/0.5 ML SYRINGE IVP ONE (14:21)
[2023-08-19] MEDS ORDERED: 0.9% NACL WITH KCL 20 MEQ/L 1,000 ML IV SCH (15:00)
[2023-08-19] MEDS: ACETAMINOPHEN TAB 325 MG TAB PO SCH ×3 (15:29→23:47)
[2023-08-19] MEDS: HYDROmorphone 1 MG/ML 1 ML SYRINGE IVP PRN ×3 (15:32→23:09)
[2023-08-20] MEDS: HYDROmorphone 1 MG/ML 1 ML SYRINGE IVP PRN (01:53)
[2023-08-20] MEDS: HYDROmorphone 0.5 MG/0.5 ML SYRINGE IVP PRN (05:16)
[2023-08-20] MEDS: ACETAMINOPHEN TAB 325 MG TAB PO SCH (05:16)
[2023-08-20 08:23] VITALS: BP 158/72; PULSE 103; TEMP 98.3
[2023-08-20] MEDS ORDERED: ALBUTEROL NEBULIZED 2.5 MG/3 ML INHALATION PRN (10:39)
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
[2023-08-20] MEDS ORDERED: CITALOPRAM HYDROBROMIDE 20 MG TAB PO SCH (10:45)
[2023-08-20] MEDS ORDERED: buPROPion XL 150 MG TAB.ER.24H PO SCH (10:45)
[2023-08-20] MEDS ORDERED: LOSARTAN 50 MG TAB PO SCH (10:45)
[2023-08-20 10:56] LABS: Basophils # (A) 0.03 X 10*3/uL (0.00-0.10); Basophils % (A) 0.2 %; Eosinophils # (A) 0.08 X 10*3/uL (0.04-0.35); Eosinophils % (A) 0.6 %; HCT 30.4 % (37.2-46.3); HGB 9.9 g/dL (12.0-15.0); Lymphocytes # (A) 2.17 X 10*3/uL (0.90-5.00); Lymphocytes % (A) 17.6 %; MCH 30.1 pg (27.0-32.0); MCHC 32.6 g/dL (32.0-37.0); MCV 92.4 FL (80.0-97.0); Monocytes # (A) 0.98 X 10*3/uL (0.20-1.00); Monocytes % (A) 7.9 %; NRBC Per 100 WBC 0 X 10*3/uL (0.00-0.01); Neutrophils # (A) 9.04 X 10*3/uL (1.80-7.70); Neutrophils % (A) 73.2 %; Platelet Count 297 X 10*3/uL (140-440); RBC 3.29 X 10*6/uL (4.10-5.20); RDW 14.7 % (11.5-14.5); WBC 12.36 X 10*3/uL (4.50-10.00)
[2023-08-20 11:09] LABS: Blood Urea Nitrogen 8.7 mg/dL (9.0-27.0); Calcium 8.5 mg/dL (8.7-10.3); Carbon Dioxide 26.1 mmol/L (21.6-31.8); Chloride 103 mmol/L (96-109); Glucose 115 mg/dL (70-110); Potassium 4.1 mmol/L (3.5-5.5); Sodium 139 mmol/L (135-145)
--- NOTE | 2023-08-20 12:06 | P.PN ---
Subjective Progress Note Date: 08/20/23 Principal diagnosis: 1. L4-5 spondylolistheis Grade I, mobile 2. L4-S1 spondylosis, severe with stenosis 3. Low back pain 4. LE radiculopathy with weakness 5. LE paresthesias Patient seen and examined this morning. Patient is sitting up in chair. She reports that her pain is managed on current regimen. Surgical incisions of the lumbar spine, dressings are clean dry and intact. LSO brace is present. Patient reports she has been ambulatory with standby assist, tolerating activity well. Prescription for rolling walker has been placed in chart. Patient is looking forward to discharge later today. No acute concerns. Objective - Vital Signs Vital signs: Vital Signs Temp 98.1 F 08/20/23 01:08 Pulse 105 H 08/20/23 01:08 Resp 18 08/20/23 04:51 BP 123/57 08/20/23 01:08 Pulse Ox 95 08/20/23 01:08 FiO2 Intake & Output 08/19/23 08/20/23 08/20/23 18:59 06:59 18:59 Intake Total 1650 222 Output Total 525 700 Balance 1125 -478 Intake: IV 1650 Oral 222 Output: Urine 475 700 Estimated Blood Loss 50 Other: Voiding Method Indwelling Catheter - Exam Physical Examination General: The patient is awake and alert, in no acute distress Skin: Skin is warm and dry with no obvious rashes or lesions. Surgical incisions the lumbar spine, dressings are clean dry and intact. Eye: Pupils are equal, round and reactive to light, extra-ocular movements are intact; there is normal conjunctiva bilaterally. Neck: The neck is supple, there is no tenderness and ROM intact. Cardiovascular: There is a regular rate and rhythm. No murmur, rub or gallop is appreciated. Respiratory: Lungs are clear to auscultation, respirations are non-labored, breath sounds are equal. Gastrointestinal: Soft, non-distended, non-tender abdomen. Back: There is no tenderness to palpation in the midline, paralumbar, parathoracic or buttocks region. There is no obvious deformity . Musculoskeletal: ROM limited secondary to pain and stiffness from surgical procedure. Muscle strength in all major muscle groups of bilateral upper extremities 5/5, bilateral lower extremities 4/5. Neurological: CN 2-12 intact. There are no obvious motor or sensory deficits. Movement and coordination equal and intact. Sensory exam to light touch intact C5-T1 and intact from L2-S1. Reflexes 2/4 in bilateral upper and lower ex tremities. Negative Hoffmans, babinski, and clonus signs. Psychiatric: Cooperative, appropriate mood & affect, normal judgment. - Labs CBC & Chem 7: 08/20/23 06:19 08/20/23 06:19 Labs: Abnormal Lab Results - Last 24 Hours (Table) 08/19/23 Range/Units 06:46 Creatinine 0.50 L (0.52-1.04) mg/dL Glucose 108 H (74-99) mg/dL Assessment and Plan Assessment: Postop day 1: L4-S1 minimally invasive TLIF 1. L4-5 spondylolistheis Grade I, mobile 2. L4-S1 spondylosis, severe with stenosis 3. Low back pain 4. LE radiculopathy with weakness 5. LE paresthesias Plan: -Appreciate email production consultant and team management. -Activity: Ambulate QID, OOB all meals, up and about, limit lifting bending twisting to less than 5 lbs. Use walker or cane if needed for stability. -Daily PT/OT, increase ambulation strength and balance. -Brace when up and about, not needed in bed or chair -Prescription placed in chart for rolling walker -Pain control: Adequate at this time -Meds: reviewed -GI ppx: senna, Miralax -DC bradshaw when up and about, bedside commode if needed -DVT PPX: OK to restart Heparin tonight -Hygiene: Shower today. Maintain dressing clean and dry. Meticulous cleaning after BMs away from the incision site -Drains: Maintain for now. Continue to monitor and record output q shift. -Encourage IS 10x/hr -Dispo: Anticipate discharge home today *I reviewed and discussed this case with my attending Dr. Angel, whom has reviewed this chart and films and is in agreement with assessment and plan of care as outlined above. I have personally seen and examined the patient, performed the documentation and the assessment and plan as written. Number of minutes spent on the visit: 20m.
--- NOTE | 2023-08-20 12:12 | P.DS ---
Providers Date of admission: 08/19/23 10:51 Expected date of discharge: 08/20/23 Attending physician: David Angel DO Consults: 08/19/23 10:54 Consult Physician Routine Consulting Provider: Cheyenne Hopson Reason/Comments: Medical Management Do you want consulting provider notified?: Yes Primary care physician: Cheyenne Emiliana [place] Hospital Course: Hospital Course: The patient was evaluated preoperatively and found to have the diagnosis of lumbar spondylolisthesis. They underwent appropriate preoperative care and were willing to undergo the intended procedure. They underwent a successful L4-S1 minimally invasive TLIF, were recovered appropriately and sent to the floor. While on the floor they worked with physical therapy, occupational therapy and nursing to enhance their recovery experience. Their pain was well controlled through their stay and they were started on appropriate medications, DVT ppx modalities, activity and dietary needs. Daily labs were monitored closely, and transfusions were only used when necessary. Medicine as well as other consulting services have made their input and have helped with our team approach and multidisciplinary care. PT milestones have been met and passed and they have made the recommendation of home for this patient and treating providers agree with this care path. The patient will be discharged home with appropriate medications, instructions and follow-up information and in stable condition. Patient Condition at Discharge: Good Plan - Discharge Summary Discharge Rx Participant: Yes New Discharge Prescriptions: New Cyclobenzaprine [Flexeril] 5 mg PO TID PRN #40 tablet PRN Reason: Muscle Spasm HYDROcodone/APAP 10-325MG [[place] 10-325] 1 tab PO Q4-6H PRN #42 tab PRN Reason: Pain Sennosides/Docusate Sodium [Senna Plus 8.6-50 mg Tablet] 1 each PO DAILY PRN #20 tablet PRN Reason: Constipation cefaDROXiL [Duricef] 500 mg PO Q12HR #10 cap No Action Citalopram Hydrobromide [CeleXA] 40 mg PO QAM Albuterol Nebulized [Ventolin Nebulized] 2.5 mg INHALATION Q6H PRN PRN Reason: Dyspnea Beclomethasone Dipropionate [Qvar 80 mcg] 1 puff INHALATION DAILY PRN PRN Reason: Dyspnea buPROPion XL [Wellbutrin XL] 150 mg PO QAM Losartan [Cozaar] 100 mg PO QAM Aspirin [Adult Low Dose Aspirin EC] 81 mg PO DAILY Ergocalciferol [Vitamin D2 (1250 Mcg = 12862 Iu)] 1,250 mcg PO MO Atorvastatin [Lipitor] 40 mg PO QAM Discharge Medication List Citalopram Hydrobromide [CeleXA] 40 mg PO QAM 02/04/16 [History] Albuterol Nebulized [Ventolin Nebulized] 2.5 mg INHALATION Q6H PRN 04/20/18 [History] Beclomethasone Dipropionate [Qvar 80 mcg] 1 puff INHALATION DAILY PRN 04/20/18 [History] Aspirin [Adult Low Dose Aspirin EC] 81 mg PO DAILY 07/21/23 [History] Atorvastatin [Lipitor] 40 mg PO QAM 07/21/23 [History] Ergocalciferol [Vitamin D2 (1250 Mcg = 04577 Iu)] 1,250 mcg PO MO 07/21/23 [History] Losartan [Cozaar] 100 mg PO QAM 07/21/23 [History] buPROPion XL [Wellbutrin XL] 150 mg PO QAM 07/21/23 [History] Cyclobenzaprine [Flexeril] 5 mg PO TID PRN #40 tablet 08/20/23 [Rx] HYDROcodone/APAP 10-325MG [[place] 10-325] 1 tab PO Q4-6H PRN #42 tab 08/20/23 [Rx] Sennosides/Docusate Sodium [Senna Plus 8.6-50 mg Tablet] 1 each PO DAILY PRN #20 tablet 08/20/23 [Rx] cefaDROXiL [Duricef] 500 mg PO Q12HR #10 cap 08/20/23 [Rx] Follow up Appointment(s)/Referral(s): Cheyenne Hopson MD [Primary Care Provider] - 1 Week David Angel DO [Doctor of Osteopathic Medicine] - 2 Weeks Activity/Diet/Wound Care/Special Instructions: Spine Discharge and Recovery Instructions Date of Surgery: 08/19/2023 Diagnosis: Lumbar spondylolisthesis Procedure: L4-S1 minimally invasive TLIF Medications: See medication list All medication refills should be obtained through your primary care doctor or your clinic spine surgeon. Please discuss prescription refills at your follow up appointment. Do not call the hospital for medication refills. Activity: Encourage ambulation with assist of walker, Up and about 6-8x daily PT/OT daily work on balance, strength and mobility Up in chair with all meals Shower daily Brace: Use brace when up and about, do not wear in bed or shower Dressing: Leave your dressing in place for a total of 3 days post operatively. Then you may remove your dressing and leave open to air. Keep the area clean and if not able to keep area clean, then cover with sterile gauze and tape. Showering: You may shower 3 days after your procedure allowing soap and water to run over incision. Do not scrub. Do not soak. Blot dry. Follow up: Please confirm a follow up appointment with your surgeon 2 weeks post operatively. Please make an appointment to follow up with your PCP in 1-2 weeks after surgery for evaluation 3 phase, 3-week plan POST OP WEEKS 1-3 1. Lifting/carrying/pushing/pulling limited to less than 5 pounds. 2. Do not sit for longer than 15 minutes at one time. Get up and walk around. Prolonged sitting is NOT advised. If you lay down, see if you can tolerate laying down on you front (belly side) 3. Walk for periods of 15 minutes = 1 mile but no longer; do it multiple times times each day. 4. Ice your low back after activity. POST OP WEEKS 3-6 1. Lifting limited to less than 20 pounds. 2. Do not sit for longer than 30 minutes at a time. Frequently change positions. Use a sit-to stand workstation or take frequent breaks from sitting if you have returned to work. 3. Walk for 30 minutes each day. If possible, do these three or more times a day POST OP WEEKS 6+ At your 6-week appointment we will give you a physical therapy referral to focus on a core stabilization and strengthening program. You should also work on leg & buttock strengthening, hamstring & quadriceps stretching, and continue a low impact aerobic activity program such as swimming, walking, or riding a stationary bicycle. During the initial 6 weeks after your surgery, you are at the highest risk of re-injuring your spine. You should generally avoid BLTs (bending, lifting and twisting combination motions) and follow the above guidelines to reduce the chance of reinjury. You can anticipate post op appointments in our office at approximately 3 weeks and 6 weeks after your surgery. INCISION CARE: If your incision is not draining you do NOT need to cover it with a dressing. Keep your incision clean, dry and intact. In most cases, we apply skin glue, obdulia or sutures to the incision at the time of surgery. This will be like a crust or have the appearance of a scab and will fall off in time on its own. The stitches or obdulia need to be removed at 3 weeks post op appointment. You may begin to shower 3 days after surgery (this allows the glue to hua well). However, please avoid scrubbing the incision site or peeling off any of the skin glue. This will ensure optimal healing of your incision. Also, during this time avoid soaking the incision area in water - this includes swimming pools, hot tubs or baths. No ointments, lotions or oils on the incision until your surgeon allows. Leave obdulia, sutures or glue in place. Neurological dysfunction that comes on suddenly can also be a sign of a stroke. Below some common symptoms of a stroke are listed: B - balance difficulty such as sudden onset walking or leaning to one side - NEW E - eye problem such as sudden double vision or trouble seeing on one side - NEW F - Facial weakness or numbness on one side - NEW A - Arm or leg weakness or numbness on one side - NEW S - Slurred speech or difficulty with word finding - NEW T - Time is BRAIN! Call 911 as soon as you recognize these symptoms Diet: Consume a regular diet rich in vegetables and lean protein such as chicken or fish. You should consume in a ratio of approximately 20% fats|40% carbohydrates|40%protein. Vegetables, sweet potatoes, brown rice or quinoa are examples of good carbohydrates. Chips, white bread, cookies and sweets/sugar are examples of bad carbohydrates. Limit your bad carbs, go wild with good carbs. "Life's Simple 7" Guidelines as per [place] [employer] These will help you reclaim your life after surgery and brewer helper in your recovery, keeping in mind your restrictions. (1) Get Active. Physical activity can help people lose weight, control high blood pressure and cholesterol, feel emotionally better, and sleep better. (2) Control Cholesterol. Avoid a diet high in saturated fat, trans fat, & cholesterol. Limit whole milk & cream, ice cream, butter, egg yolks, processed meats (like sausage and hot dogs), and fatty meats. Choose healthy foods that are low in saturated fat, trans fat and cholesterol which include: Fruits and vegetables, fiber rich grain products (like whole grain pasta and brown rice), lean meat such as chicken, fish, nuts, seeds, and legumes. (3) Eat Better. Eat small portions. Shop at the grocery with a list and do not stray from it. Tips for a healthy diet include: Limit sodium intake to less than 1500mg daily, avoid prepackaged, processed, and fast foods, choose a diet rich in fruits, vegetables, and whole grain, high fiber foods, and limit saturated & cholesterol in your diet. (4) Manage Blood Pressure. If you have high blood pressure, you should have a cuff at home so that you can check your blood pressure regularly. Be sure you have a good cuff. An arm one is generally better than a wrist one. Bring the cuff to a doctor's appointment to validate that the measurements that your cuff are taking are accurate. Take your blood pressure twice daily when you are sitting down and relaxing. Record the numbers in a log and bring this log with you to your doctors' appointments. (5) Lose Weight if your BMI is above 25. A healthy BMI is between 19-25. To calculate Your BMI, you may use a Standard BMI Calculator on the NIH BMI website: <www.nhlbi.nih.gov/guidelines/obesity/BMI/bmicalc.htm>. Weigh oneself daily. If you are overweight, set a goal to lose weight. A pound a week loss if needed is a good target. (6) Reduce Blood Sugar. Limit foods and liquids with "added sugars." (Added sugars include sucrose, fructose, glucose, maltose, dextrose, high fructose corn syrup, corn syrup, concentrated fruit juice and honey). (7) Stop Smoking. If you smoke, quitting smoking is one of the best things that you can do for your health. Smoking increases your risk of heart attack, stroke, and peripheral vascular disease, which is a build-up of plaque in your arteries. Please discard all the cigarettes and lighters in your house. Have a plan for what you will do when you have the urge to smoke. Direct and second- hand smoke shortens your life as well as the lives of your family, friends and others around you. For your health and the health of those around you, please consider quitting! Proper Bending Body Mechanics: Maintain a wide stance with one foot slightly in front of the other. Keep your back straight. Bend utilizing the strength in your hips and knees. Do not bend at the waist. Maintain the lifted object at your waist-level close to your body. Avoid lifting weight that causes immediately pain or pain anywhere in the body afterwards. Smoking/Nicotine If there was ever one thing that you could do to increase your overall health, decrease your risk of cardiovascular problems by about 39% the second you make the choice, it is to STOP SMOKING. Your body's most instant gratification is the second you stop smoking. We have all heard the studies, read the articles but it is true, smoking is extremely bad for your overall health, and moreover it is detrimental to your bone health. Nicotine, IN ANY FORM, kills bone cells, prevents your body from healing fractures, and significantly prolongs healing after surgery. In spine surgery specifically, it increases your risk of not healing your bones to create a fusion and increases your risk of having a revision surgery due to this up to 60%. I know it is hard. I know it feels impossible. But there are ways. Take control of your life. We are here to help you through it. And when you are ready, ask us and we can direct you to help if you desire. Use the START Plan to Quit Smoking (please visit the Helpguide.org website listed below for more information): S = Set a quit date. Choose a date within the next 2 weeks, so you have enough time to prepare without losing your motivation to quit. If you mainly smoke at work, quit on the weekend, so you have a few days to adjust to the change. T = Tell family, friends, and co-workers that you plan to quit. Let your friends and family in on your plan to quit smoking and tell them you need their support and encouragement to stop. Look for a quit dahiana who wants to stop smoking as well. You can help each other get through the rough times. A = Anticipate and plan for the challenges you'll face while quitting. Most people who begin smoking again do so within the first 3 months. You can help yourself make it through by preparing ahead for common challenges, such as nicotine withdrawal and cigarette cravings. R = Remove cigarettes and other tobacco products from your home, car, and work. Throw away all your cigarettes (no emergency pack!), lighters, ashtrays, and matches. Wash your clothes and freshen up anything that smells like smoke. Shampoo your car, clean your drapes and carpet, and steam your furniture. T = Talk to your doctor about getting help to quit. Your doctor can prescribe medication to help with withdrawal and suggest other alternatives. If you can't see a doctor, you can get many products over the counter at your local pharmacy or grocery store, including the nicotine patch, nicotine lozenges, and nicotine gum. Resources for Quitting Smoking: <https://www.[place].gov/documents/[facility]/Quit_Tobacco_Resources_for _patients_313480_7.pdf> Supplementation: Take recommended dosages of Vitamin D and Calcium to help fortify your bones and help them to heal. See your health maintenance packet for dosages and recommended levels. DVT/VTE prophylaxis: You will be given compression stockings from the hospital. Wear these daily for the first two weeks after surgery. You may take them off at night. You may be prescribed a medication to help thin your blood. Take this as directed. If you are not prescribed this medication, early and frequent ambulation has been shown to be the best prophylaxis to deep vein thrombosis and sequelae related to this event. Discharge Disposition: HOME SELF-CARE
--- NOTE | 2023-08-20 13:31 | CT ---
EXAMINATION TYPE: CT lumbar spine wo con CT DLP: 1558.2 mGycm, Automated exposure control for dose reduction was used. DATE OF EXAM: 08/20/2023 8:05 AM COMPARISON: CT lumbar spine 07/28/2023. CLINICAL INDICATION:Female, 53 years old with history of s/p lumbar fusion; PHH, post op lumbar fusio n TECHNIQUE: Multiple axial images were obtained from the midportion of T11 through the sacroiliac carmela nts. Soft tissue and bone windows in coronal and sagittal planes were obtained and reviewed. 3-D ref ormats of the bones were created on a separate workstation and submitted for review. Contrast used: mL of , none. Oral contrast used: none. FINDINGS: Interval placement of right-sided pedicle screws and posterior fixation arcadio at L4, L5, S1, and left-s ided pedicle screws and posterior fixation arcadio at L4 and S1. Prosthetic disc interspace material at L 4-5 and L5-S1 both appear obliquely oriented within the disc space and comes somewhat near the anteri or margins of the disc, correlate clinically. The pedicle screws at L4 and L5 appear to course and te rminate within the bone. The right-sided S1 screw courses normally through the bone with the tip term inating very near or just outside the anterior cortex of the sacrum without fracture identified. The left-sided sacral screw courses normally through the bone however distally the tip extends 7 mm beyon d the anterior sacral cortical surface, and there are a couple small flat chips of cortical bone seen displaced anteriorly and lying over the tip of the screw. There is soft tissue edema and subcutaneou s fat stranding posterior to the levels of surgery, with small amounts of soft tissue gas in the subc utaneous tissues, not unexpected postoperative but superimposed infection can't be excluded by CT. Th ere are overlying skin obdulia. No abnormal fluid and gas containing collection is seen. The appearance of the lumbar spine is otherwise unchanged from the preoperative study. No acute lumba r fracture or change in alignment. Canal and contents not well assessed by this exam however no gross abnormality is detected. Moderate calcification of the abdominal aorta is again seen. A 4.1 cyst in the upper pole left kidney posteriorly. No intraperitoneal fluid collection seen in the visualized abdomen or pelvis. Minimal s ubsegmental atelectasis at the right lung base. IMPRESSION: 1. Status post posterior hardware fusion and disc prosthesis placement at L4-L5-S1. 2. Hardware appears intact, however the left-sided sacral screw tip extends 7 mm beyond the anterior sacral cortical surface, and there are a couple of small flat chips of cortical bone seen displaced anteriorly and lying over the tip of the screw.
[2023-08-20] MEDS ORDERED: HEPARIN SODIUM,PORCINE 5,000 UNIT/ML 1 ML VIAL SQ SCH (21:00)
[2023-08-21] MEDS ORDERED: ATORVASTATIN 40 MG TAB PO SCH (09:00)
== END 2023-08-20 13:51 | disposition home or self-care (01) ==
LOC: OR 05:36 → 5NMEDONC 10:50 → OR 10:51 → 5NMEDONC 10:51
PROVIDERS: ADMIT Orthopaedic Surgery; ATTEND Orthopaedic Surgery
DX: M43.16 Spondylolisthesis, lumbar region (principal); M48.061 Spinal stenosis, lumbar region without neurogenic claudication; M47.817 Spondylosis without myelopathy or radiculopathy, lumbosacral region; M51.16 Intervertebral disc disorders with radiculopathy, lumbar region; M51.17 Intervertebral disc disorders with radiculopathy, lumbosacral region; E78.5 Hyperlipidemia, unspecified; F17.200 Nicotine dependence, unspecified, uncomplicated; I10 Essential (primary) hypertension; Z98.1 Arthrodesis status; Z90.710 Acquired absence of both cervix and uterus; Z79.82 Long term (current) use of aspirin
CPT/HCPCS: 96376 ×2; 96365; 96366 ×2; 96367; 96375; 94760; 97162; 80048 ×2; 85025 ×2; 72100; 72131; 22633; 22842; 22634; 22853; 20936; 61783; G0378 ×2; C1713; C1734; J2250; J0330; J2710; J0690 ×2; J2405; J2001; J3010; J1170 ×4; J2704; J2371; J0665

== ENCOUNTER 2023-09-10 08:16 | Day surgery (SDC) | payer OTHER ==
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
[~2023-09-10 08:16] MED LIST changes: -ACETAMINOPHEN TAB 500 MG TAB PO PRN; -GABAPENTIN 300 MG CAP PO PRN; +LACTATED RINGERS 1,000 ML IV SCH; -ONDANSETRON 4 MG/2 ML VIAL IVP PRN; +Pre Op ABX Message 1 EACH MISC MISCELLANE ONE; -TRANEXAMIC 1,000 MG/100ML-NACL 1,000 MG in SALINE 1 100ML.BAG IVPB PRN; +fentaNYL (PF) 50 MCG/ML 2 ML AMP IV PRN
[2023-09-10] MEDS ORDERED: ONDANSETRON 4 MG/2 ML VIAL ONE (08:56)
[2023-09-10] MEDS ORDERED: DEXAMETHASONE SOD PHOSPHATE 4 MG/ML 1 ML VIAL IVP ONE (09:04)
[2023-09-10 09:14] VITALS: TEMP 97
[2023-09-10] MEDS ORDERED: PROPOFOL 10 MG/ML 20 ML VIAL IV ONE (09:22)
[2023-09-10] MEDS ORDERED: BUPIVACAINE (PF) 0.5% 30 ML VIAL SQ ONE ×2 (09:22→09:26)
[2023-09-10] MEDS ORDERED: fentaNYL (PF) 50 MCG/ML 2 ML AMP ONE (09:22)
[2023-09-10] MEDS ORDERED: MIDAZOLAM 2 MG/2 ML VIAL ONE (09:22)
[2023-09-10] MEDS ORDERED: LIDOCAINE 2% INJ 20 MG/ML SQ ONE ×2 (09:23→09:26)
--- NOTE | 2023-09-10 09:45 | P.OP ---
Date of Procedure: 09/10/23 Preoperative Diagnosis: 1.) Right carpal tunnel syndrome 2.) Right ring finger trigger finger Postoperative Diagnosis: 1.) Right carpal tunnel syndrome 2.) Right ring finger trigger finger Procedure(s) Performed: 1.) Right endoscopic carpal tunnel release 2.) Right ring finger A1 maria teresa release Anesthesia: MAC Surgeon: Alonso Griffith Professor Of Violin #1: Rohit Hahn Estimated Blood Loss (ml): 0 Pathology: none sent Condition: stable Disposition: PACU Description of Procedure: This is a 53 year old female who presents today for a right endoscopic carpal tunnel release and right ring finger A1 maria teresa release after having failed conservative treatment in the past. Risks and benefits of surgery were discussed with the patient including bleeding, damage to surrounding tissue, infection, need to convert to open procedure, need for further surgery as well as risks of anesthesia including pulmonary embolism and even and the patient wished to proceed with surgical intervention. The patients was seen in the pre-operative area by myself. Consent and H&P were completed and updated. The correct extremity was marked in the pre-operative area by myself and all other questions were answered. Operative Narrative: The patient was brought to the operating room by the department of anesthesia. They remained on the portable stretcher and a rolling hand table was brought to the side of the operative extremity. Pre-operative time out was performed indicating the correct patient, procedure and laterality. All in the room agreed. The patient was then drifted off to sleep by the department of anesthesia. MAC anesthesia was utilized and a 50:50 mixture of 1% Lidocaine and 0.5% bupivacaine was injected into the subcutaneous tissues of the palmar skin, 12ccs total. A nonsterile tourniquet was then applied to the operative extr emity and the right upper extremity was then prepped and draped in normal sterile fashion. The operative extremity was the exsanguinated with an esmarch bandage and the tourniquet was inflated to 250mmHg. 15 blade scalpel was utilized to make a transverse incision on the palmar skin just ulnar to the palmaris longus tendon at the level of the distal wrist crease. Ragnell retractor was then placed radially and blunt dissection was performed to reveal the distal forearm fascia. This was lifted with fine Blair pick ups and Littler tenotomy scissors were then used to open the forearm fascia transversely and a double skin hook was then placed. Hamate finder was placed into the carpal tunnel and then sequential sized dilators were inserted followed by the synovial elevator to separate the flexor tenosynovium from the undersurface of the transverse carpal ligament and a washboard texture was felt. The MicroAire endoscopic carpal tunnel release system gun was the then inserted into the carpal tunnel hugging the deep portion of the transverse carpal ligament in line with the base of the ring finger. Transverse fibers of the ligament were directly visualized. Pressure was applied on the palm to reveal the distal extent of the transverse carpal ligament. The blade was then deployed and the distal half of the transverse carpal ligament was released. The scope was then brought distal again and remaining transverse fibers were incised with the blade. The proximal half of the transverse carpal ligament was then divided and again the scope was advanced distal and remaining transverse fibers were incised with the blade. The radial and ulnar leaflets were directly visualized and mobile consistent with complete release. Tenotomy scissors were then utilized to release the remaining distal forearm fascia under direct visualization taking care to preserve the palmar cutaneous branch of the median nerve. Skin closure was performed with interrupted 4-0 nylon suture. Oblique incision was made at the base of the right ring finger. Blunt dissection was taken down to the level of the A1 maria teresa. Ragnell retractors were placed both radially and ulnarly to protect neurovascular bundles. Littler tenotomy scissors were then used to release the A1 maria teresa from proximal to distal under direct visualization. Proximal fascial attachments were released. The tendon was then taken through range of motion and no locking or catching was appreciated. The wound was then closed with interrupted 4-0 nylon sutures in a horizontal mattress fashion. Sterile dressing was applied consisting 4x4s, Webril, and an chelita bandage. Tourniquet was let down and the hand immediately was well perfused. The patient was then woken by the department of anesthesia and transferred to PACU in stable condition. Rohit ASIF was present for the case in its entirety and assisted in major portions of the case and protection of vital neurovascular structures. Alonso Griffith D.O. Orthopedic Hand/Upper Extremity Surgeon
[2023-09-10 10:25] VITALS: BP 135/78; PULSE 95; RESP 20
== END 2023-09-10 10:17 | disposition home or self-care (01) ==
LOC: OR 08:16
PROVIDERS: ATTEND Orthopaedic Surgery Hand Surgery
DX: M65.341 Trigger finger, right ring finger (principal); G56.01 Carpal tunnel syndrome, right upper limb; E78.5 Hyperlipidemia, unspecified; I10 Essential (primary) hypertension; J44.89 Other specified chronic obstructive pulmonary disease; M19.90 Unspecified osteoarthritis, unspecified site; F17.200 Nicotine dependence, unspecified, uncomplicated; Z88.5 Allergy status to narcotic agent; Z79.899 Other long term (current) drug therapy; Z88.8 Allergy status to other drugs, medicaments and biological substances
CPT/HCPCS: 26055; 29848; J2001; J2250; J1100; J2405; J3010; J2704; J0665

== ENCOUNTER → 2023-12-18 | Outpatient (CLI) | payer OTHER ==
[2023-12-18 12:59] LABS: Partial Thromboplastin Time 25.3 sec (22.0-30.0)
[2023-12-18 15:17] LABS: INR 0.9 (<1.2); Prothrombin Time 9.9 sec (10.0-12.5)
[2023-12-18 15:32] LABS: Basophils # (A) 0.04 X 10*3/uL (0.00-0.10); Basophils % (A) 0.4 %; Eosinophils # (A) 0.17 X 10*3/uL (0.04-0.35); Eosinophils % (A) 1.6 %; HGB 13.7 g/dL (12.0-15.0); Lymphocytes # (A) 3.52 X 10*3/uL (0.90-5.00); Lymphocytes % (A) 34.1 %; MCHC 32.6 g/dL (32.0-37.0); MCV 85.9 FL (80.0-97.0); Mean Platelet Volume 9.8 FL (9.5-12.2); Monocytes # (A) 0.54 X 10*3/uL (0.20-1.00); Monocytes % (A) 5.2 %; NRBC Per 100 WBC 0 X 10*3/uL (0.00-0.01); Neutrophils % (A) 58.2 %; Platelet Count 446 X 10*3/uL (140-440); RBC 4.89 X 10*6/uL (4.10-5.20); RDW 15.7 % (11.5-14.5); WBC 10.32 X 10*3/uL (4.50-10.00)
[2023-12-18 16:07] LABS: Blood Urea Nitrogen 9.8 mg/dL (9.0-27.0); Chloride 102 mmol/L (96-109); Glucose 135 mg/dL (70-110); Potassium 4.3 mmol/L (3.5-5.5); Sodium 139 mmol/L (135-145)
[2023-12-18 16:08] LABS: Calcium 9.3 mg/dL (8.7-10.3); Carbon Dioxide 23.5 mmol/L (21.6-31.8)
== END | disposition home or self-care (01) ==
LOC: LABPAT 11:10
PROVIDERS: ATTEND Orthopaedic Surgery
DX: Z01.812 Encounter for preprocedural laboratory examination (principal)
CPT/HCPCS: 80048; 85025; 85610; 85730; 87070

== ENCOUNTER 2023-12-29 10:49 | Day surgery (SDC) | payer OTHER ==
--- NOTE | 2023-12-28 11:20 | HP ---
HISTORY AND PHYSICAL DATE OF SURGERY: 12/29/2023. HISTORY OF PRESENT ILLNESS: Klaudia High is a 53-year-old patient, seen with symptomatic left knee osteoarthritis. After treatment options were discussed with her, she elected to proceed with left total knee arthroplasty. Consents obtained. Medical clearance was provided by Dr. Martini. PAST MEDICAL HISTORY: Hypertension and hyperlipidemia. PAST SURGICAL HISTORY: Appendectomy, cholecystectomy, and cervical fusion. DAILY MEDICATIONS: 1. Atorvastatin. 2. Alprazolam. 3. Losartan. 4. Aspirin. 5. Motrin. 6. Tylenol. ALLERGIES: Morphine. SOCIAL HISTORY: She denies current tobacco use. PHYSICAL EVALUATION OF THE LEFT KNEE: Her range of motion is -3 to 120 degrees. Mild effusion. Tenderness, medial joint line. Crepitus, medial patellofemoral compartments with range of motion. Pain with patellofemoral compression. Ligaments stable. Hip rotation is without pain. Distal neurovascular exam is intact. IMAGING STUDIES: Radiographs of the left knee revealed severe osteoarthritic changes. IMPRESSION: 1. Left knee osteoarthritis. 2. Hypertension. 3. Hyperlipidemia. PLAN: Left total knee arthroplasty. MMODL / IJN: [id number] /
[~2023-12-29 10:49] MED LIST changes: -LACTATED RINGERS 1,000 ML IV SCH; -Pre Op ABX Message 1 EACH MISC MISCELLANE ONE; +TRANEXAMIC 1,000 MG/100ML-NACL 1,000 MG in SALINE 1 100ML.BAG IVPB PRN; -fentaNYL (PF) 50 MCG/ML 2 ML AMP IV PRN
[2023-12-29] MEDS: LACTATED RINGERS 1,000 ML IV SCH ×2 (11:08→18:06)
[2023-12-29] MEDS: MELOXICAM 7.5 MG TAB PO PRN (11:31)
[2023-12-29] MEDS: ACETAMINOPHEN TAB 500 MG TAB PO PRN (11:31)
[2023-12-29] MEDS: ONDANSETRON 4 MG/2 ML VIAL IVP ONE (11:34)
[2023-12-29] MEDS: DEXAMETHASONE SOD PHOSPHATE 4 MG/ML 1 ML VIAL IVP ONE (11:34)
[2023-12-29] MEDS ORDERED: ACETAMINOPHEN TAB 500 MG TAB ONE (11:35)
[2023-12-29] MEDS ORDERED: ONDANSETRON 4 MG/2 ML VIAL ONE (11:36)
[2023-12-29] MEDS: MIDAZOLAM 2 MG/2 ML VIAL IVP ONE (11:54)
[2023-12-29] MEDS ORDERED: TRANEXAMIC 1,000 MG/100ML-NACL PREMIX BAG ONE (12:54)
[2023-12-29] MEDS ORDERED: fentaNYL (PF) 50 MCG/ML 2 ML AMP ONE (12:54)
[2023-12-29] MEDS ORDERED: PHENYLEPHRINE 10 MG/ML VIAL ONE (12:54)
[2023-12-29] MEDS ORDERED: SUCCINYLCHOLINE CHLORIDE 200 MG/10 ML VIAL IV ONE (12:54)
[2023-12-29] MEDS ORDERED: ROCURONIUM 10 MG/ML (5 ML VIAL) IV ONE (12:54)
[2023-12-29] MEDS ORDERED: GLYCOPYRROLATE 0.2 MG/ML 2 ML VIAL ONE (12:54)
[2023-12-29] MEDS ORDERED: LIDOCAINE 1% INJ 10MG/ML (20 ML MDV) ONE (12:54)
[2023-12-29] MEDS ORDERED: DEXAMETHASONE SOD PHOSPHATE 4 MG/ML 1 ML VIAL ONE (12:54)
[2023-12-29] MEDS ORDERED: PROPOFOL 10 MG/ML 20 ML VIAL IV ONE (12:54)
[2023-12-29] MEDS ORDERED: MIDAZOLAM 2 MG/2 ML VIAL ONE (12:54)
[2023-12-29] MEDS ORDERED: HYDROmorphone (PF) 1 MG/ML ONE (12:54)
[2023-12-29] MEDS ORDERED: NEOSTIGMINE 1 MG/ML 10 ML VIAL ONE (12:54)
[2023-12-29] MEDS ORDERED: ROPIVACAINE 5 MG/ML 30 ML VIAL ONE (12:54)
[2023-12-29] MEDS: ceFAZolin 1,000 MG in SODIUM CHLORIDE 0.9% 1,000 ML IRRIGATION ONE (13:21)
[2023-12-29] MEDS ORDERED: NALOXONE 0.4 MG/ML 1 ML VIAL IV PRN (14:39)
[2023-12-29] MEDS ORDERED: HYDROmorphone 0.5 MG/0.5 ML SYRINGE IVP PRN (14:39)
[2023-12-29] MEDS: LACTATED RINGERS 1,000 ML IV ONE (14:39)
[2023-12-29] MEDS ORDERED: ONDANSETRON 4 MG/2 ML VIAL IVP PRN (14:39)
[2023-12-29] MEDS ORDERED: HYDROcodone/APAP 5-325MG 1 EACH TAB PO PRN (14:39)
--- NOTE | 2023-12-29 14:39 | P.OP ---
Date of Procedure: 12/29/23 Preoperative Diagnosis: Left knee osteoarthritis Postoperative Diagnosis: Left knee osteoarthritis Procedure(s) Performed: Left total knee arthroplasty Implants: 1. DePuy attune size 5 narrow left cruciate retaining cemented femur 2. DePuy attune size 4 fixed-bearing cemented tibial baseplate 3. DePuy attune size 5 fixed-bearing cruciate retaining 5 mm polyethylene tibial insert 4. DePuy attune 35 mm all polyethylene cemented patella Anesthesia: GETA, regional (Adductor canal catheter, iPAQ block) Surgeon: Paul Alcantara Oral Pathologist #1: Cirilo Elkins Estimated Blood Loss (ml): 40 Pathology: none sent Condition: stable Disposition: PACU Indications for Procedure: 53-year-old patient seen with symptomatic left knee osteoarthritis. After having treatment options discussed, she elected to proceed with total knee arthroplasty. Operative Findings: See description of procedure Description of Procedure: Patient was taken to the operative suite after having an adductor canal catheter placed by the department of anesthesia. Patient underwent a general anesthetic by the department of anesthesia. Patient was given preoperative IV intake antibiotics and TXA. A well-padded tourniquet was placed about the [] lower extremity. The lower extremity was then prepped and draped in the normal sterile orthopedic fashion. The extremity was elevated, a tourniquet was insufflated to 300. A standard anterior incision was made sharply through skin. Dissection was taken down through the subcutaneous soft tissues down to the extensor mechanism. A medial arthrotomy was performed, patella was everted and knee was flexed. There was advanced osteoarthritis noted. I introduced my distal intramedullary femoral drill. I then introduced the distal femoral cutting jig. Freddy ASIF secured the cutting jig with 2 pins. I held retractors in position while Freddy ASIF performed the distal femoral resection through the guide area we now removed her distal femoral cutting guide. We now placed our 4-in-1 femoral cutting block and positioned and it was secured with 2 pins by Freddy ASIF while I held the block in position. The distal femoral finishing was now completed. A proximal tibial cutting guide was positioned. I held the guide in the appropriate position with both hands well Freddy ASIF inserted stabilizing pins into the guide. Proximal tibial cut was made. We now placed a trial femoral component into position, along with an appropriate size tibial tray and insert. We now took the knee through range of motion and had full extension good flexion and good overall soft tissue balance noted. The patella was everted and stabilized with 2 towel clips held by Freddy ASIF while I performed a flush with patellar quad tendon utilizing a fresh sawblade. We templated the patella, appropriate drill holes were made. An appropriate trial patella was positioned, knee was taken through full range of motion with the patella tracking very nicely. The trial patella was removed. Drill holes were made through the femoral component. All trial components were removed after marking off the appropriate rotation of the tibia. Retractors were now positioned along the proximal tibia. An appropriate keel punch was made with the appropriate size tibial guide by myself on Freddy ASIF assisted by holding retractors. At this point appropriate size implants were chosen and opened. The joint was irrigated copiously with pulse lavage mechanical irrigation. The wound was irrigated with pulse lavage mechanical irrigation. We mixed antibiotic methylmethacrylate. We placed the knee into flexion. We placed multiple retractors assisted by Freddy ASIF to expose the proximal tibia. Once the methyl methacrylate was ready, the tibial component was cemented into place removing any excess methylmethacrylate form by both myself and Freddy ASIF. The femoral component was cemented into place removing the removing any excess methylmethacrylate performed by both myself and Freddy ASIF. We then inserted the appropriate size polyethylene tibial insert. We made sure that it was locked into position. We took the knee into full extension, and then back in a flexion making sure we had removed any excess methylmethacrylate. The patellar component was then cemented down and secured with clamp. Excess methylmethacrylate removed. We kept the knee in full extension, patellar clamp in position until methylmethacrylate had hardened. Once it had hardened the patellar clamp was removed. The knee was taken through full range of motion. The patella tracked nicely. There was good soft tissue balancing. The tourniquet was now released. Additional hemostasis was achieved via electrocautery. A second gram of TXA was given. The wound again was irrigated with pulse lavage mechanical irrigation. The extensor mechanism was repaired with Ethibond suture. We checked the repair with range of motion and it was stable. The subcutaneous soft tissues were repaired with Vicryl in layers. The skin was approximated with pernio/Dermabond. Sterile dressings were applied followed by loose web roll and Moris bandage. The patient was transferred to a bed, and taken to recovery in stable and satisfactory condition. Freddy ASIF assisted with this complex procedure.
[2023-12-29] MEDS: ROPIVACAINE 1,100 MG, SODIUM CHLORIDE 0.9% 500 ML 330 ML, EMPTY PAIN BALL 1 EACH MISCELLANE PRN (15:17)
[2023-12-29] MEDS: ALBUTEROL NEBULIZED 2.5 MG/3 ML INHALATION ONE (15:24)
[2023-12-29] MEDS: HYDROmorphone 0.5 MG/0.5 ML SYRINGE IVP PRN (15:31)
--- NOTE | 2023-12-29 16:23 | XR ---
EXAMINATION TYPE: XR knee limited LT DATE OF EXAM: 12/29/2023 CLINICAL HISTORY: Postoperative evaluation Two views of the left knee are submitted. Identified are changes of total knee arthroplasty with fem oral and tibial components appearing well seated. Postsurgical soft tissue changes are noted. Align ment is anatomic.
[2023-12-29] MEDS: HYDROmorphone 1 MG/ML 1 ML SYRINGE IVP PRN (18:13)
[2023-12-29] MEDS ORDERED: ALBUTEROL NEBULIZED 2.5 MG/3 ML INHALATION PRN ×2 (18:19)
[2023-12-29] MEDS ORDERED: CYCLOBENZAPRINE 5 MG TAB PO PRN (18:19)
[2023-12-29] MEDS: buPROPion XL 150 MG TAB.ER.24H PO SCH (19:01)
[2023-12-29] MEDS: SENNOSIDES-DOCUSATE SODIUM 1 EACH TAB PO SCH (21:42)
[2023-12-30] MEDS: ENOXAPARIN 30 MG/0.3 ML SYRINGE SQ SCH (04:01)
[2023-12-30] MEDS: HYDROcodone/APAP 7.5-325MG 1 EACH TAB PO PRN (04:01)
--- NOTE | 2023-12-30 07:15 | P.PN ---
Progress Note - Text Progress Note Date: 12/30/23 patient was seen and evaluated at bedside. Status post postoperative day 1 for left total knee arthroplasty patient had adductor canal catheter for postop pain control. Patient rated pain at rest 1-2 out of 10 in severity. Patient describes pain is aching, throbbing type on the sides of the knee and back of the knee. Patient started walking with support. With activity patient pain levels are 5-6 out of 10 in severity. With the help of oral pain medications pain levels are tolerable. Patient denied any weakness/ numbness in lower extremities. patient denied any fever, pain over the catheter site. Physical exam: Patient vital signs stable Patient is alert awake oriented 3 responding to all questions appropriately Examination of the catheter site showed dressing intact, no leaking fluid around the catheter, no redness, no tenderness over the catheter insertion area. plan: status post postoperative day 1 for Left total knee arthroplasty with adductor canal catheter for pain control. Patient was discussed to continue the medication at the rate of 8 mL per hour until the pump is completely empty and instructed the patient how to discontinue the catheter.
[2023-12-30 08:14] VITALS: BP 117/59; PULSE 109; RESP 17; TEMP 98
[2023-12-30] MEDS: CITALOPRAM HYDROBROMIDE 20 MG TAB PO SCH (08:23)
[2023-12-30] MEDS: LOSARTAN 50 MG TAB PO SCH (08:23)
[2023-12-30] MEDS: ASPIRIN 81 MG PO SCH (08:23)
[2023-12-30] MEDS: ATORVASTATIN 40 MG TAB PO SCH (08:23)
[2023-12-30 08:47] LABS: Basophils # (A) 0.03 X 10*3/uL (0.00-0.10); Basophils % (A) 0.2 %; Eosinophils # (A) 0 X 10*3/uL (0.04-0.35); Eosinophils % (A) 0 %; HCT 35.4 % (37.2-46.3); HGB 11.3 g/dL (12.0-15.0); Lymphocytes # (A) 1.63 X 10*3/uL (0.90-5.00); Lymphocytes % (A) 8.5 %; MCHC 31.9 g/dL (32.0-37.0); MCV 87.8 FL (80.0-97.0); Mean Platelet Volume 9.9 FL (9.5-12.2); Monocytes # (A) 0.99 X 10*3/uL (0.20-1.00); Monocytes % (A) 5.2 %; NRBC Per 100 WBC 0 X 10*3/uL (0.00-0.01); Neutrophils # (A) 16.37 X 10*3/uL (1.80-7.70); Neutrophils % (A) 85.3 %; Platelet Count 438 X 10*3/uL (140-440); RBC 4.03 X 10*6/uL (4.10-5.20); RDW 15.6 % (11.5-14.5); WBC 19.17 X 10*3/uL (4.50-10.00)
--- NOTE | 2023-12-30 09:15 | P.ANPRN ---
Procedure Note - Anesthesia - Nerve Block Performed Left Adductor Canal Infusion Time Out Performed: Yes Date of Procedure: 12/29/23 Procedure Start Time: 11:54 Procedure Stop Time: 12:01 Location of Patient: PreOp Indication: Acute Post-Operative Pain, Requested by Surgeon Sedation Type: Sedate with meaningful contact maintained Preparation: Sterile Prep, Sterile Dressing Position: Supine Catheter: Indwelling Needle Types: Pajunk Needle Gauge: 21 Ultrasound used to visualize needle placement: Yes Ultrasound used to observe medication spread: Yes Blood Aspirated: No Pain Paresthesia on Injection Noted: No Resistance on Injection: Normal Image Stored and Saved: Yes Events: Uneventful and Well Tolerated (Ropivacaine 0.5% 20 cc plus dexamethasone 4 mg)
--- NOTE | 2023-12-30 09:16 | P.ANPRN ---
Procedure Note - Anesthesia - Nerve Block Performed Left iPack Single Time Out Performed: Yes Date of Procedure: 12/29/23 Procedure Start Time: 12:02 Procedure Stop Time: 12:04 Location of Patient: PreOp Indication: Acute Post-Operative Pain, Requested by Surgeon Sedation Type: Sedate with meaningful contact maintained Preparation: Sterile Prep Position: Supine Needle Types: Pajunk Needle Gauge: 21 Ultrasound used to visualize needle placement: Yes Ultrasound used to observe medication spread: Yes Blood Aspirated: No Pain Paresthesia on Injection Noted: No Resistance on Injection: Normal Image Stored and Saved: Yes Events: Uneventful and Well Tolerated (Ropivacaine 0.5% 20 cc plus dexamethasone 4 mg)
[2023-12-30 09:19] LABS: ALT 39 U/L (8-44); AST 26 U/L (13-35); Albumin 3.8 g/dL (3.8-4.9); Alkaline Phosphatase 158 U/L (41-126); BUN/Creat Ratio 20.83 Ratio (12.00-20.00); Blood Urea Nitrogen 12.5 mg/dL (9.0-27.0); Calcium 8.6 mg/dL (8.7-10.3); Carbon Dioxide 23.4 mmol/L (21.6-31.8); Chloride 103 mmol/L (96-109); Globulin 1.9 g/dL (1.6-3.3); Glucose 151 mg/dL (70-110); Potassium 4.2 mmol/L (3.5-5.5); Sodium 139 mmol/L (135-145); Total Bilirubin <0.2 mg/dL (0.3-1.2); Total Protein 5.7 g/dL (6.2-8.2)
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
--- NOTE | 2023-12-30 10:36 | P.DS ---
Providers Date of admission: 12/29/2023 Expected date of discharge: 12/30/23 Attending physician: Paul Alcantara Consults: 12/29/23 14:39 Consult Physician Routine Consulting Provider: Cheyenne Hopson Consult Reason/Comments: Medical management Do you want consulting provider notified?: Yes Primary care physician: Cheyenne Hopson [facility] Course: Date of admission: 12/29/2023 Date of discharge: 12/30/2023 Admission diagnosis: Left knee osteoarthritis Discharge diagnosis: Same Attending physician: Dr. Alcantara Surgical procedures: Left total knee arthroplasty Brief history: Patient is a 53-year-old female with a history of progressive primary left knee osteoarthritis. At this point patient has failed conservative treatment measures and has opted to proceed with a elective left total knee arthroplasty. Hospital course: Details of patient's surgery can be found in operative report. Patient tolerated the procedure well and was subsequently transported to orthopedic floor. Patient's orthopeidc and medical care was provided daily. Patient had daily laboratory tests performed for evaluation of overall blood counts. Patient had daily physical therapy to include strengthening range of motion as well as education with walker ambulation. Patient was treated with Lovenox for their postoperative DVT prophylaxis during their inpatient stay. Patient was noted to have a relatively uneventful postoperative course. Patient reported satisfactory pain control with oral pain medications by postoperative day 1. Patient showed satisfactory progress with physical therapy. Patient moved steadily through the program and had no difficulty meeting the goals by postoperative day 1. Given patient's otherwise satisfactory course and having met physical therapy goals, plan is to discharge patient home with health services on postoperative day 1. Discharge condition/disposition: Patient will be discharged home with health services in stable condition. Discharge medications: Instructions are given on resumption of patient's normal daily medications per primary care recommendation, in addition patient will be prescribed [place] 7.5 mg / 325 mg; senna; resume aspirin 81 mg twice daily x 30 days. Discharge instructions: 1. Wound care and infection precautions, keep incision dry and covered while showering, no lotions, creams, moisturizers. No soaking, tubs, pools, hottubs. Do not scrub over the incision. 2. Weight-bear as tolerated with walker / cane until follow-up. 3. Ice and elevate when necessary. Do not exceed 20 minutes per hour with ice pack. 4. Utilize compression sleeve until seen at first follow up appointment. 5. Visiting nursing care. 6. Home physical therapy including home CPM. 7. Pain meds and anticoagulants per prescription. 8. Pain medication has potential to cause constipation. Increase oral fluid and fiber intake. Contact primary care provider if you have not had a bowel movement within 48 hours after discharge 9. No anti-inflammatory medication until discussed at first post operative visit, this including Motrin, Aleve, Mobic, Diclofenac. 10. Follow up in office at 2 weeks postop with Freddy Elkins PA-C / Rohit Hahn PA-C 11. Follow up with your primary care doctor 7-10 days after discharge. 12. Contact [facility] with any questions, . Assessment: Left knee osteoarthritis Procedures: Left total knee arthroplasty Patient Condition at Discharge: Good Plan - Discharge Summary Discharge Rx Participant: No New Discharge Prescriptions: New Sennosides/Docusate Sodium [Senna Plus 8.6-50 mg Softgel] 1 each PO DAILY #20 capsule HYDROcodone/APAP 7.5-325MG [[place] 7.5-325] 1 - 2 tab PO Q6HR PRN #36 tab PRN Reason: Pain Continue Aspirin [Adult Low Dose Aspirin EC] 81 mg PO BID No Action Citalopram Hydrobromide [CeleXA] 40 mg PO QAM Albuterol Nebulized [Ventolin Nebulized] 2.5 mg INHALATION Q6H PRN PRN Reason: Dyspnea buPROPion XL [Wellbutrin XL] 150 mg PO QAM Losartan [Cozaar] 100 mg PO QAM Ergocalciferol [Vitamin D2 (1250 Mcg = 00999 Iu)] 1,250 mcg PO MO Cyclobenzaprine [Flexeril] 5 mg PO TID PRN #40 tablet PRN Reason: Muscle Spasm Atorvastatin [Lipitor] 40 mg PO QAM Albuterol Inhaler [Ventolin Hfa Inhaler] 1 - 2 puff INHALATION Q6H PRN PRN Reason: Shortness Of Breath Discharge Medication List Citalopram Hydrobromide [CeleXA] 40 mg PO QAM 02/04/16 [History] Albuterol Nebulized [Ventolin Nebulized] 2.5 mg INHALATION Q6H PRN 04/20/18 [History] Aspirin [Adult Low Dose Aspirin EC] 81 mg PO BID 07/21/23 [History] Atorvastatin [Lipitor] 40 mg PO QAM 07/21/23 [History] Ergocalciferol [Vitamin D2 (1250 Mcg = 53127 Iu)] 1,250 mcg PO MO 07/21/23 [History] Losartan [Cozaar] 100 mg PO QAM 07/21/23 [History] buPROPion XL [Wellbutrin XL] 150 mg PO QAM 07/21/23 [History] Cyclobenzaprine [Flexeril] 5 mg PO TID PRN #40 tablet 08/20/23 [Rx] Albuterol Inhaler [Ventolin Hfa Inhaler] 1 - 2 puff INHALATION Q6H PRN 12/24/23 [History] HYDROcodone/APAP 7.5-325MG [[place] 7.5-325] 1 - 2 tab PO Q6HR PRN #36 tab 12/30/23 [Rx] Sennosides/Docusate Sodium [Senna Plus 8.6-50 mg Softgel] 1 each PO DAILY #20 capsule 12/30/23 [Rx] Follow up Appointment(s)/Referral(s): [facility],Equipment [NON-STAFF] - As Needed (Continuous Passive Motion knee machine) [facility], [NON-STAFF] - As Needed Cirilo Elkins PAC [PHYSICIAN INFORMATION ASSOC] - 2 Weeks Patient Instructions/Handouts: Knee Replacement (DC), Knee Replacement (GEN) Activity/Diet/Wound Care/Special Instructions: Orthopedic Discharge Instructions: 1. Wound care and infection precautions, keep incision dry and covered while showering, no lotions, creams, moisturizers. No soaking, pools, hot tubs. Do not scrub over incision. 2. Weight-bear as tolerated with walker / cane until follow-up. 3. Ice and elevate when necessary. Do not exceed 20 minutes per hour with ice pack. 4. Utilize compression sleeve until seen at first follow up appointment. 5. Pain meds and anticoagulants per prescription. 6. Pain medication has potential to cause constipation. Increase oral fluid and fiber intake. Contact primary care provider if you have not had a bowel movement within 48 hours after discharge. 7. No anti-inflammatory medication until discussed at first post operative visit, this including Motrin, Aleve, Mobic, Diclofenac. 8. Follow up in office at 2 weeks postop with Freddy Elkins PA-C / Rohit Hahn PA-C 9. Follow up with your primary care doctor 7-10 days after discharge. 10. Contact [facility] with any questions, . Keep incision clean, dry, intact. While showering, cover dressing with Saran wrap. Keep dressing on until 01/05/2024. Once dressing is removed, it is okay to shower directly over incision. Discharge Disposition: HOME WITH HOME HEALTH SERVICES
--- NOTE | 2023-12-30 10:40 | P.PN ---
Subjective Progress Note Date: 12/30/23 Principal diagnosis: Left knee osteoarthritis Patient was seen at bedside this morning lying in semi-recumbent position with dressing present over left knee. Patient says she just finished working with therapy and walked out in the hallway and up and down steps. Patient says she is looking forward to going home later today. Patient says she does have a walker at home. Patient says she has urinated several times since surgery yesterday without issue. Patient says she has not had a bowel movement yet, however, patient says she has been passing gas. Patient denies chest pain, fever, shortness of breath, nausea, vomiting, change in vision, loss of bowel/bladder control. Objective - Vital Signs Vital signs: Vital Signs Temp 98.0 F 12/30/23 07:00 Pulse 109 H 12/30/23 07:00 Resp 17 12/30/23 07:00 BP 117/59 12/30/23 07:00 Pulse Ox 97 12/30/23 07:00 FiO2 Intake & Output 12/29/23 12/30/23 12/30/23 18:59 06:59 18:59 Intake Total 1551 750 Output Total 40 Balance 1511 750 Weight 87 kg Intake: IV 1551 Oral 750 Output: Estimated Blood Loss 40 Other: # Voids 3 - Exam Left knee: Incision is clean, dry, and intact. The silver foam dressing is in good condition. There is minimal soft tissue swelling and ecchymosis surrounding the medial and lateral aspects of the incision. Calf is soft, no tenderness with palpation. Plantar flexion, dorsiflexion, EHL, FHL are intact. Sensory exam to light touch throughout the extremity is intact, dorsal pedis pulses 2+. - Labs CBC & Chem 7: 12/30/23 04:21 12/30/23 04:21 Labs: Abnormal Lab Results - Last 24 Hours (Table) 12/30/23 12/30/23 Range/Units 04:21 04:21 WBC 19.17 H (4.50-10.00) X 10*3/uL RBC 4.03 L (4.10-5.20) X 10*6/uL Hgb 11.3 L (12.0-15.0) g/dL Hct 35.4 L (37.2-46.3) % MCHC 31.9 L (32.0-37.0) g/dL RDW 15.6 H (11.5-14.5) % Immature Gran # 0.15 H (0.00-0.04) X 10*3/uL Neutrophils # 16.37 H (1.80-7.70) X 10*3/uL Eosinophils # 0 L (0.04-0.35) X 10*3/uL Anion Gap 12.60 H (4.00-12.00) mmol/L BUN/Creatinine Ratio 20.83 H (12.00-20.00) Ratio Glucose 151 H (70-110) mg/dL Calcium 8.6 L (8.7-10.3) mg/dL Total Bilirubin <0.2 L (0.3-1.2) mg/dL Alkaline Phosphatase 158 H (41-126) U/L Total Protein 5.7 L (6.2-8.2) g/dL Assessment and Plan Assessment: 1. Left knee osteoarthritis -Postop day 1 status post left total knee arthroplasty Plan: 1. Left knee osteoarthritis -left total knee arthroplasty performed yesterday, 12/29/2023. Patient stable at bedside this morning. Patient does have a walker for home. Patient did do well with PT/OT this morning. Discharge home today with health services. 2. Appreciate medical management 3. Pain management -[place] 4. DVT prophylaxis -Lovenox in hospital. Patient has aspirin at home. To resume aspirin 81 mg twice daily x 30 days 5. GI prophylaxis -senna 6. PT/OT -weightbearing as tolerated with walker 7. Encourage incentive spirometer use 8. Discharge planning -home today with health services Time with Patient: Less than 30
[2023-12-30] MEDS ORDERED: MULTIVITAMINS, THERA 1 EACH TAB PO SCH (12:00)
[2024-01-05] MEDS ORDERED: ERGOCALCIFEROL 1,250 MCG (50,000 IU) CAPSULE PO SCH (09:00)
== END 2023-12-30 12:02 | disposition home health service (06) ==
LOC: OR 10:49 → 4SSUR 14:32 → OR 12-30 12:02
PROVIDERS: ATTEND Orthopaedic Surgery
DX: M17.12 Unilateral primary osteoarthritis, left knee (principal); G89.18 Other acute postprocedural pain; E78.5 Hyperlipidemia, unspecified; I10 Essential (primary) hypertension; J44.9 Chronic obstructive pulmonary disease, unspecified; Z87.891 Personal history of nicotine dependence; Z88.5 Allergy status to narcotic agent; Z91.09 Other allergy status, other than to drugs and biological substances; Z79.899 Other long term (current) drug therapy; Z79.82 Long term (current) use of aspirin
CPT/HCPCS: 97161; 64999; 64448; 80053; 85025; 73560; 27447; C1776; C1713 ×2; C1751; J2250; J1100; J0690 ×3; J2405; J1650; J1170 ×2; J2795

== ENCOUNTER → 2024-02-04 | Outpatient (CLI) | payer OTHER ==
[2024-02-05 02:54] LABS: Basophils # (A) 0.06 X 10*3/uL (0.00-0.10); Basophils % (A) 0.5 %; Eosinophils # (A) 0.13 X 10*3/uL (0.04-0.35); HCT 39.4 % (37.2-46.3); HGB 11.9 g/dL (12.0-15.0); Lymphocytes # (A) 3.68 X 10*3/uL (0.90-5.00); Lymphocytes % (A) 27.8 %; MCH 27.7 pg (27.0-32.0); MCHC 30.2 g/dL (32.0-37.0); MCV 91.8 FL (80.0-97.0); Mean Platelet Volume 10.3 FL (9.5-12.2); Monocytes # (A) 0.76 X 10*3/uL (0.20-1.00); Monocytes % (A) 5.7 %; NRBC Per 100 WBC 0 X 10*3/uL (0.00-0.01); Neutrophils # (A) 8.56 X 10*3/uL (1.80-7.70); Neutrophils % (A) 64.5 %; Platelet Count 491 X 10*3/uL (140-440); RBC 4.29 X 10*6/uL (4.10-5.20); RDW 16.1 % (11.5-14.5); WBC 13.26 X 10*3/uL (4.50-10.00)
[2024-02-05 03:57] LABS: Erythrocyte Sedimentation Rate 35 mm/Hr (0-30)
== END | disposition home or self-care (01) ==
LOC: LABWHC1 15:18
PROVIDERS: ATTEND Orthopaedic Surgery
DX: M25.562 Pain in left knee (principal); Z96.652 Presence of left artificial knee joint
CPT/HCPCS: 36415; 85025; 85652; 86140

== ENCOUNTER 2024-02-05 12:19 | Inpatient (IN) | payer OTHER ==
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
[2024-02-05 15:57] LABS: Basophils # (A) 0.1 k/uL (0-0.2); Basophils % (A) 1 %; Eosinophils # (A) 0.3 k/uL (0-0.7); Eosinophils % (A) 2 %; HCT 40.1 % (34.0-46.0); HGB 12.6 gm/dL (11.4-16.0); Hypochromasia Slight; Lymphocytes # (A) 3.1 k/uL (1.0-4.8); Lymphocytes % (A) 29 %; MCH 28.4 pg (25.0-35.0); MCHC 31.4 g/dL (31.0-37.0); MCV 90.2 fL (80.0-100.0); Mean Platelet Volume 7.8; Monocytes # (A) 0.4 k/uL (0-1.0); Monocytes % (A) 4 %; Neutrophils # (A) 6.6 k/uL (1.3-7.7); Neutrophils % (A) 62 %; Platelet Count 465 k/uL (150-450); RBC 4.45 m/uL (3.80-5.40); RDW 15.7 % (11.5-15.5); WBC 10.6 k/uL (3.8-10.6)
[2024-02-05 16:09] LABS: ALT 39 U/L (4-34); African American GFR (CKD) >90 (>60 ml/min/1.73 sqM); Albumin 4.2 g/dL (3.5-5.0); Anion Gap 4 mmol/L; Blood Urea Nitrogen 12 mg/dL (7-17); Calcium 9.4 mg/dL (8.4-10.2); Carbon Dioxide 26 mmol/L (22-30); Chloride 108 mmol/L (98-107); Glucose 128 mg/dL (74-99); Non-African American GFR(CKD) >90 (>60 ml/min/1.73 sqM); Sodium 138 mmol/L (137-145); Total Bilirubin 0.5 mg/dL (0.2-1.3); Total Protein 7.1 g/dL (6.3-8.2)
[2024-02-05 16:19] LABS: AST 34 U/L (14-36); Alkaline Phosphatase 226 U/L (38-126); Potassium 4.5 mmol/L (3.5-5.1)
[2024-02-05] MEDS ORDERED: NALOXONE 0.4 MG/ML 1 ML VIAL IV PRN (16:28)
[2024-02-05 16:36] LABS: C Reactive Protein 1.6 mg/dL (<1.0)
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
[2024-02-05] MEDS: HYDROcodone/APAP 7.5-325MG 1 EACH TAB PO PRN (17:48)
[2024-02-05] MEDS: SODIUM CHLORIDE 0.9% 1,000 ML IV SCH (18:17)
[2024-02-05] MEDS: HYDROmorphone 0.5 MG/0.5 ML SYRINGE IVP PRN (20:56)
[2024-02-06] MEDS: KETOROLAC 15 MG/ML 1 ML VIAL IVP PRN (04:54)
[2024-02-06] MEDS: buPROPion XL 150 MG TAB.ER.24H PO SCH (08:37)
[2024-02-06] MEDS: LOSARTAN 50 MG TAB PO SCH (08:37)
[2024-02-06] MEDS: ATORVASTATIN 40 MG TAB PO SCH (08:37)
[2024-02-06] MEDS: CITALOPRAM HYDROBROMIDE 20 MG TAB PO SCH (08:37)
[2024-02-06] MEDS ORDERED: VANCOMYCIN IV PER PHARMACY 1 EACH MISC MISCELLANE PRN (09:18)
[2024-02-06] MEDS: VANCOMYCIN 1,500 MG in SODIUM CHLORIDE 0.9% 500 ML 500 ML IVPB SCH (10:11)
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
[2024-02-06] MEDS: ONDANSETRON 4 MG/2 ML VIAL IVP PRN (13:30)
[2024-02-06] MEDS: DEXAMETHASONE SOD PHOSPHATE 4 MG/ML 1 ML VIAL IM STA (13:32)
[2024-02-06] MEDS: LACTATED RINGERS 1,000 ML IV ONE (13:34)
[2024-02-06] MEDS ORDERED: MIDAZOLAM 2 MG/2 ML VIAL ONE (14:12)
[2024-02-06] MEDS ORDERED: fentaNYL (PF) 50 MCG/ML 2 ML AMP ONE (14:12)
[2024-02-06] MEDS ORDERED: SUCCINYLCHOLINE CHLORIDE 200 MG/10 ML VIAL IV ONE (14:12)
[2024-02-06] MEDS ORDERED: LIDOCAINE 1% INJ 10MG/ML (20 ML MDV) ONE (14:12)
[2024-02-06] MEDS ORDERED: HYDROmorphone (PF) 1 MG/ML ONE (14:12)
[2024-02-06] MEDS ORDERED: PROPOFOL 10 MG/ML 20 ML VIAL IV ONE (14:12)
[2024-02-06] MEDS: GENTAMICIN 80 MG in SODIUM CHLORIDE 0.9% IRRIGATIO 3,000 ML IRRIGATION ONE (14:43)
[2024-02-06] MEDS: VANCOMYCIN 1,000 MG VIAL MISCELLANE ONE (14:47)
[2024-02-06] MEDS: GENTAMICIN 40 MG/ML 2 ML VIAL IRRIGATION ONE (14:48)
--- NOTE | 2024-02-06 15:42 | P.OP ---
Date of Procedure: 02/06/24 Preoperative Diagnosis: Left knee periprosthetic joint infection Postoperative Diagnosis: Left knee periprosthetic joint infection Procedure(s) Performed: 1. Left knee arthrotomy with polyethylene exchange 2. Left knee irrigation and debridement 3. Left knee antibiotic bead placement Implants: DePuy attune size 5 fixed-bearing cruciate retaining 5 mm polyethylene tibial insert Anesthesia: ALYCE Surgeon: Paul Alcantara Leader Writer #1: Cirilo Elkins Estimated Blood Loss (ml): 25 Pathology: none sent Condition: stable Disposition: PACU Indications for Procedure: 53-year-old patient who was seen with a probable left knee periprosthetic joint infection after having undergone recent total knee arthroplasty. I discussed arthrotomy, polyethylene exchange irrigation debridement and antibiotic bead placement. Patient was agreeable. Consents obtained. Operative Findings: See description of procedure Description of Procedure: Patient was taken to the operative suite. She underwent a general anesthetic by the primary anesthesia. A well-padded tourniquet was placed proximal left thigh. Left lower extremity prepped and draped in a normal sterile orthopedic fashion. The extremity was elevated and tourniquet insufflated to 300. Incision made through the previous cicatrix sharply through skin. Dissection to the extensor mechanism. Medial arthrotomy performed through previous arthrotomy site.. I encountered significant serous appearing fluid which we cultured twice. I removed the polyethylene tray without difficulty. I now performed and excisional debridement utilizing a 15 blade excising abnormal appearing deep soft tissue along the anterior and gutter areas of the capsule. I explored the wound and noted we had removed all abnormal appearing tissue. We now irrigated the wound out with 3000 cc of antibiotic irrigant via pulse lavage irrigation. We now irrigated the wound with some other 3000 cc of Betadine irrigant. I now irrigated the knee out with an additional 3000 cc of antibiotic irrigant via pulse lavage irrigation. I now soaked the wound with Irrisept and let it sit there for several minutes before removing. I explored the wound and noted again no abnormal looking tissue. I now replaced a new DePuy attune polyethylene tibial tray and snapped in place. It was secured. We now released the tourniquet and achieved via hemostasis via electrocautery. I now placed the antibiotic beads throughout the knee trying to space them apart. I now repaired the extensor mechanism utilizing #1 Ethibond. The subcutaneous soft tissues repaired in layers with 2-0 Vicryl. The skin was approximated with skin obdulia. Sterile dressings were applied. Patient was awakened, transferred to bed and recovery in stable condition. Freddy ASIF assisted in all aspects of this procedure.
[2024-02-06] MEDS ORDERED: ONDANSETRON 4 MG/2 ML VIAL IVP PRN (15:44)
[2024-02-06] MEDS ORDERED: HYDROcodone/APAP 7.5-325MG 1 EACH TAB PO PRN (15:44)
[2024-02-06] MEDS ORDERED: NALOXONE 0.4 MG/ML 1 ML VIAL IV PRN (15:44)
[2024-02-06] MEDS: IV FLUID CONTINUATION 1,000 ML IV ONE (15:57)
[2024-02-06] MEDS: ALBUTEROL NEBULIZED 2.5 MG/3 ML INHALATION STA (16:35)
[2024-02-06] MEDS: HYDROcodone/APAP 5-325MG 1 EACH TAB PO PRN (17:59)
[2024-02-06] MEDS: PIPERACILLIN-TAZOBACTAM 3.375 GM in SODIUM CHLORIDE 0.9% 100 ML IVPB SCH (18:00)
[2024-02-06] MEDS: ALPRAZolam 0.25 MG TAB PO PRN (20:33)
[2024-02-06] MEDS: CYCLOBENZAPRINE 5 MG TAB PO SCH (20:33)
[2024-02-06] MEDS: PREGABALIN 75 MG CAP PO SCH (20:33)
[2024-02-06] MEDS: HYDROmorphone 1 MG/ML 1 ML SYRINGE IVP PRN (20:34)
[2024-02-06] MEDS: DEXAMETHASONE SOD PHOSPHATE 4 MG/ML 1 ML VIAL IVP STA (21:22)
[2024-02-07 07:51] LABS: Basophils % (A) 0 %; Eosinophils # (A) 0.2 k/uL (0-0.7); Eosinophils % (A) 1 %; HCT 34.1 % (34.0-46.0); HGB 10.6 gm/dL (11.4-16.0); Hypochromasia Marked; Lymphocytes # (A) 1.7 k/uL (1.0-4.8); Lymphocytes % (A) 13 %; MCV 93.8 fL (80.0-100.0); Mean Platelet Volume 7.6; Monocytes # (A) 0.6 k/uL (0-1.0); Monocytes % (A) 4 %; Neutrophils # (A) 11.2 k/uL (1.3-7.7); Neutrophils % (A) 81 %; Platelet Count 468 k/uL (150-450); RBC 3.64 m/uL (3.80-5.40); RDW 15.5 % (11.5-15.5); WBC 13.8 k/uL (3.8-10.6)
[2024-02-07 08:03] LABS: ALT 71 U/L (4-34); AST 60 U/L (14-36); African American GFR (CKD) >90 (>60 ml/min/1.73 sqM); Albumin 3.7 g/dL (3.5-5.0); Albumin/Globulin Ratio 1.5; Alkaline Phosphatase 189 U/L (38-126); Anion Gap 5 mmol/L; Blood Urea Nitrogen 16 mg/dL (7-17); Calcium 8.9 mg/dL (8.4-10.2); Carbon Dioxide 26 mmol/L (22-30); Chloride 108 mmol/L (98-107); Globulin 2.4 g/dL; Glucose 123 mg/dL (74-99); Non-African American GFR(CKD) >90 (>60 ml/min/1.73 sqM); Potassium 4.7 mmol/L (3.5-5.1); Sodium 139 mmol/L (137-145); Total Bilirubin 0.2 mg/dL (0.2-1.3); Total Protein 6.1 g/dL (6.3-8.2)
[2024-02-07] MEDS: CLOPIDOGREL 75 MG TAB PO SCH (08:19)
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
[2024-02-07] MEDS: MULTIVITAMINS, THERA 1 EACH TAB PO SCH (12:25)
--- NOTE | 2024-02-07 12:58 | P.PN ---
Subjective Progress Note Date: 02/07/24 Principal diagnosis: Status post I&D with irrigation and debridement, polyethylene liner exchange and antibiotic bead placement Left knee periprosthetic infection Patient was evaluated at bedside today, she is resting comfortably. The pain is controlled currently. She has been up and ambulating, she states that is when most of the pain does occur. She denies any headaches, lightheadedness, chest pain or shortness of breath. She denies any fevers or chills at this time. Patient has been evaluated by both internal medicine and infectious disease. She does remain on IV antibiotics currently. Objective - Vital Signs Vital signs: Vital Signs Temp 97.8 F 02/07/24 08:22 Pulse 79 02/07/24 08:22 Resp 17 02/07/24 08:22 BP 120/70 02/07/24 08:22 Pulse Ox 95 02/07/24 08:22 FiO2 Intake & Output 02/06/24 02/07/24 02/07/24 18:59 06:59 18:59 Intake Total 1101 1080 Output Total 25 Balance 1076 1080 Intake: IV 1101 Intake, IV Titration 600 Amount Piperacillin-Tazobactam 3 100 .375 gm In Sodium Chloride 0.9% 100 ml @ 25 mls/hr IVPB Q8HR [facility] Rx# :[id number] Vancomycin 1,500 mg In 500 Sodium Chloride 0.9% 500 ml 500 ml @ 167 mls/hr IVPB Q12HR [facility] Rx#: [id number] Oral 480 Output: Estimated Blood Loss 25 Other: Voiding Method Toilet Toilet Toilet # Voids 1 - Exam Left lower extremity: Optifoam dressing is in good position condition. There is some mild swelling and ecchymosis present along the medial and lateral aspects of the knee. There is some mild spotting noted on the dressing. Calf is soft, no tenderness with palpation. Plantarflexion, dorsiflexion, EHL, FHL are intact. Sensory exam to light touch is intact throughout the extremity. Dorsalis pedis pulses 2+ - Labs CBC & Chem 7: 02/07/24 07:35 02/07/24 07:35 Labs: Abnormal Lab Results - Last 24 Hours (Table) 02/07/24 02/07/24 Range/Units 07:35 07:35 WBC 13.8 H (3.8-10.6) k/uL RBC 3.64 L (3.80-5.40) m/uL Hgb 10.6 L (11.4-16.0) gm/dL Plt Count 468 H (150-450) k/uL Neutrophils # 11.2 H (1.3-7.7) k/uL Chloride 108 H (98-107) mmol/L Glucose 123 H (74-99) mg/dL AST 60 H (14-36) U/L ALT 71 H (4-34) U/L Alkaline Phosphatase 189 H (38-126) U/L Total Protein 6.1 L (6.3-8.2) g/dL Microbiology - Last 24 Hours (Table) 02/05/24 15:36 Blood Culture - Preliminary Blood Assessment and Plan Assessment: Postoperative day #1 status post left knee incision and drainage with irrigation and debridement, polyethylene liner exchange, antibiotic bead placement Left knee pain History of left total knee arthroplasty, 12/29/2023 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 Icing and elevating techniques were discussed. Patient is okay to shower if the bandages completely covered Weight-bear as tolerated, recommend use of walker at all times Continue with daily physical therapy Await culture and sensitivity Other medical specialty recommendations appreciated Continue to follow during hospital stay Time with Patient: Less than 30
[2024-02-07] MEDS ORDERED: ALBUTEROL NEBULIZED 2.5 MG/3 ML INHALATION PRN (17:49)
[2024-02-07] MEDS: ALBUTEROL NEBULIZED 2.5 MG/3 ML INHALATION PRN (20:15)
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
[2024-02-08 09:06] LABS: African American GFR (CKD) >90 (>60 ml/min/1.73 sqM); Non-African American GFR(CKD) >90 (>60 ml/min/1.73 sqM)
[2024-02-08] MEDS: VANCOMYCIN TROUGH DUE 1 EACH MISC MISCELLANE ONE (10:17)
--- NOTE | 2024-02-08 11:40 | P.PN ---
Subjective Progress Note Date: 02/08/24 Principal diagnosis: Status post I&D with irrigation and debridement, polyethylene liner exchange and antibiotic bead placement Left knee periprosthetic infection Patient was evaluated at bedside today, she is resting comfortably. The pain is controlled currently. She has been up and ambulating, she states that is when most of the pain does occur. She denies any headaches, lightheadedness, chest pain or shortness of breath. She denies any fevers or chills at this time. Patient has been evaluated by both internal medicine and infectious disease. She does remain on IV antibiotics currently. Cultures are currently pending Objective - Vital Signs Vital signs: Vital Signs Temp 97.9 F 02/08/24 07:11 Pulse 88 02/08/24 09:08 Resp 17 02/08/24 07:11 BP 136/76 02/08/24 07:11 Pulse Ox 95 02/08/24 07:11 FiO2 Intake & Output 02/07/24 02/08/24 02/08/24 18:59 06:59 18:59 Other: Voiding Method Toilet Toilet Toilet # Voids 2 2 - Exam Left lower extremity: Optifoam dressing is in good position condition. There is some mild swelling and ecchymosis present along the medial and lateral aspects of the knee. There is some mild spotting noted on the dressing. Calf is soft, no tenderness with palpation. Plantarflexion, dorsiflexion, EHL, FHL are intact. Sensory exam to light touch is intact throughout the extremity. Dorsalis pedis pulses 2+ - Labs CBC & Chem 7: 02/07/24 07:35 02/08/24 08:36 Labs: Microbiology - Last 24 Hours (Table) 02/06/24 14:45 Gram Stain - Preliminary Knee - Left Wound Culture - Preliminary 02/06/24 14:45 Gram Stain - Preliminary Knee - Left Wound Culture - Preliminary 02/05/24 15:36 Blood Culture - Preliminary Blood Assessment and Plan Assessment: Postoperative day #2 status post left knee incision and drainage with irrigation and debridement, polyethylene liner exchange, antibiotic bead placement Left knee pain History of left total knee arthroplasty, 12/29/2023 Possible left knee periprosthetic infection Possible left knee inflammatory response due to total knee arthroplasty components Other medical comorbidities Plan: Pain control, continue with current medications DVT prophylaxis, have resume Plavix Wound care, plan for dressing change on 02/09/2024. Continue to ice and elevate often Weight-bear as tolerated, recommend use of walker at all times Continue with daily physical therapy Await culture and sensitivity Other medical specialty recommendations appreciated Continue to follow during hospital stay Time with Patient: Less than 30
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
--- NOTE | 2024-02-08 14:33 | P.PN ---
Subjective Progress Note Date: 02/08/24 Principal diagnosis: Reason for follow-up is left knee septic arthritis Patient is a 53-year-old female with a past medical history difficult for hypertension hyperlipidemia COPD CVA TIA in this patient who is s/p left knee arthroplasty completed on 12/29/2023 now admitted to hospital concerning for left knee infection in this patient with status post polyethylene exchange I&D and left knee antibiotic bead placement. On today's evaluation that is 02/08/2024,the patient remains to be afebrile, patient is on room air not requiring supplemental oxygen and denies any s hortness of breath no chest pain or cough.Patient denies having any nausea or vomiting, no abdominal pain and no diarrhea, the patient pain to the left hip slightly decreased in intensity. Patient did have a creatinine 0.63 Vanco trough is 15.3 cultures currently pending Objective - Vital Signs Vital signs: Vital Signs Temp 97.9 F 02/08/24 07:11 Pulse 88 02/08/24 09:08 Resp 17 02/08/24 07:11 BP 136/76 02/08/24 07:11 Pulse Ox 95 02/08/24 07:11 FiO2 Intake & Output 02/07/24 02/08/24 02/08/24 18:59 06:59 18:59 Other: Voiding Method Toilet Toilet Toilet # Voids 2 2 - Exam GENERAL DESCRIPTION: An elderly male lying in bed in no distress RESPIRATORY SYSTEM: Unlabored breathing , decreased breath sounds at bases HEART: S1 S2 regular rate and rhythm , ABDOMEN: Soft , no tenderness EXTREMITIES: Left knee is currently dressed - Labs CBC & Chem 7: 02/07/24 07:35 02/08/24 08:36 Labs: Microbiology - Last 24 Hours (Table) 02/06/24 14:45 Gram Stain - Preliminary Knee - Left Wound Culture - Preliminary 02/06/24 14:45 Gram Stain - Preliminary Knee - Left Wound Culture - Preliminary 02/05/24 15:36 Blood Culture - Preliminary Blood Assessment and Plan (1) Infection of left knee Current Visit: Yes Status: Acute Code(s): M00.9 - PYOGENIC ARTHRITIS, UNSPECIFIED SNOMED Code(s): 381191206 Plan: 1patient presented to hospital with left knee pain swelling redness in this patient who did have a recent left knee replacement on 12/29/2023 subsequent developing cellulitis failing outpatient oral Keflex therapy in this patient who is status post arthrotomy and polyethylene exchange as well as antibiotic bead placement he will need to cover for the gram-positive as well as gram-negative p athogen while waiting for the culture to finalize. 2patient to continue with the vancomycin pharmacy to dose however switch Zosyn to cefepime to decrease risk of nephrotoxicity, discharge antibiotic will be sent final culture Dictation was produced using [employer] dictation software. please excuse any grammatical, word or spelling errors. Time with Patient: Less than 30
[2024-02-08] MEDS: CEFEPIME 2 GM in SODIUM CHLORIDE 0.9% 100 ML IVPB SCH (17:23)
[2024-02-09 08:32] LABS: Basophils # (A) 0.04 X 10*3/uL (0.00-0.10); Basophils % (A) 0.4 %; Eosinophils # (A) 0.22 X 10*3/uL (0.04-0.35); Eosinophils % (A) 2.1 %; HCT 29.2 % (37.2-46.3); HGB 9.4 g/dL (12.0-15.0); Lymphocytes # (A) 3.06 X 10*3/uL (0.90-5.00); Lymphocytes % (A) 29.2 %; MCH 29.1 pg (27.0-32.0); MCHC 32.2 g/dL (32.0-37.0); MCV 90.4 FL (80.0-97.0); Mean Platelet Volume 9.9 FL (9.5-12.2); Monocytes % (A) 7.6 %; NRBC Per 100 WBC 0 X 10*3/uL (0.00-0.01); Neutrophils % (A) 60.1 %; Platelet Count 390 X 10*3/uL (140-440); RBC 3.23 X 10*6/uL (4.10-5.20); RDW 16.6 % (11.5-14.5); WBC 10.48 X 10*3/uL (4.50-10.00)
[2024-02-09 08:42] LABS: Albumin 3.6 g/dL (3.8-4.9); Albumin/Globulin Ratio 1.89 Ratio (1.60-3.17); Blood Urea Nitrogen 12.9 mg/dL (9.0-27.0); Calcium 9.1 mg/dL (8.7-10.3); Carbon Dioxide 26.2 mmol/L (21.6-31.8); Chloride 107 mmol/L (96-109); Globulin 1.9 g/dL (1.6-3.3); Glucose 99 mg/dL (70-110); Potassium 4.1 mmol/L (3.5-5.5); Sodium 144 mmol/L (135-145); Total Bilirubin <0.2 mg/dL (0.3-1.2); Total Protein 5.5 g/dL (6.2-8.2)
[2024-02-09 08:43] LABS: ALT 53 U/L (8-44); AST 25 U/L (13-35); Alkaline Phosphatase 172 U/L (41-126)
--- NOTE | 2024-02-09 12:42 | P.PN ---
Subjective Progress Note Date: 02/09/24 Principal diagnosis: Status post I&D with irrigation and debridement, polyethylene liner exchange and antibiotic bead placement Left knee periprosthetic infection Patient was evaluated at bedside today, she is resting comfortably. Her pain is very minimal at this time. She has been up and ambulating with minimal assistance. She denies any headaches, lightheadedness, chest pain or shortness of breath. She denies any fevers or chills at this time. Cultures at this time are not growing any acute bacteria, awaiting infectious disease recommendations. Objective - Vital Signs Vital signs: Vital Signs Temp 97.9 F 02/09/24 07:20 Pulse 88 02/09/24 07:20 Resp 16 02/09/24 07:20 BP 163/77 02/09/24 07:20 Pulse Ox 92 L 02/09/24 07:20 FiO2 Intake & Output 02/08/24 02/09/24 02/09/24 18:59 06:59 18:59 Other: Voiding Method Toilet # Voids 2 3 - Exam Left lower extremity: Optifoam dressing is in good position condition. There is some mild swelling and ecchymosis present along the medial and lateral aspects of the knee. There is some mild spotting noted on the dressing. Calf is soft, no tenderness with palpation. Plantarflexion, dorsiflexion, EHL, FHL are intact. Sensory exam to light touch is intact throughout the extremity. Dorsalis pedis pulses 2+ - Labs CBC & Chem 7: 02/09/24 04:25 02/09/24 04:25 Labs: Abnormal Lab Results - Last 24 Hours (Table) 02/09/24 02/09/24 Range/Units 04:25 04:25 WBC 10.48 H (4.50-10.00) X 10*3/uL RBC 3.23 L (4.10-5.20) X 10*6/uL Hgb 9.4 L (12.0-15.0) g/dL Hct 29.2 L (37.2-46.3) % RDW 16.6 H (11.5-14.5) % Immature Gran # 0.06 H (0.00-0.04) X 10*3/uL BUN/Creatinine Ratio 21.50 H (12.00-20.00) Ratio Total Bilirubin <0.2 L (0.3-1.2) mg/dL ALT 53 H (8-44) U/L Alkaline Phosphatase 172 H (41-126) U/L Total Protein 5.5 L (6.2-8.2) g/dL Albumin 3.6 L (3.8-4.9) g/dL Microbiology - Last 24 Hours (Table) 02/06/24 14:45 Anaerobic Culture - Preliminary Knee - Left 02/06/24 14:45 Anaerobic Culture - Preliminary Knee - Left 02/06/24 14:45 Gram Stain - Final Knee - Left Wound Culture - Final 02/06/24 14:45 Gram Stain - Final Knee - Left Wound Culture - Final 02/06/24 14:45 Anaerobic Culture - Preliminary Knee - Left 02/05/24 15:36 Blood Culture - Preliminary Blood Assessment and Plan Assessment: Postoperative day #3 status post left knee incision and drainage with irrigation and debridement, polyethylene liner exchange, antibiotic bead placement Left knee pain History of left total knee arthroplasty, 12/29/2023 Possible left knee periprosthetic infection Possible left knee inflammatory response due to total knee arthroplasty components Other medical comorbidities Plan: Pain control, continue with current medications DVT prophylaxis, have resume Plavix Wound care, plan for dressing change on 02/09/2024. Continue to ice and elevate often Weight-bear as tolerated, recommend use of walker at all times Continue with daily physical therapy Await culture and sensitivity Other medical specialty recommendations appreciated Discharge planning: Pending infectious disease recommendations for continuing antibiotics, hopeful discharge to home 02/09/2024 vs 02/10/2024 Time with Patient: Less than 30
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
--- NOTE | 2024-02-09 18:13 | P.PN ---
Subjective Progress Note Date: 02/09/24 Principal diagnosis: Reason for follow-up is left knee septic arthritis Patient is a 53-year-old female with a past medical history difficult for hypertension hyperlipidemia COPD CVA TIA in this patient who is s/p left knee arthroplasty completed on 12/29/2023 now admitted to hospital concerning for left knee infection in this patient with status post polyethylene exchange I&D and left knee antibiotic bead placement. On today's evaluation that is 02/09/2024, the patient continues to be afebrile, the patient is on room air and breathing comfortably, the Pt denies having any chest pain or cough, the patient denies having any abdominal pain no vomiting or any diarrhea, pain to the left knee has decreased in intensity. Patient white count is 10.48, creatinine 0.6 cultures so far negative Objective - Vital Signs Vital signs: Vital Signs Temp 97.9 F 02/09/24 07:20 Pulse 88 02/09/24 07:20 Resp 16 02/09/24 07:20 BP 163/77 02/09/24 07:20 Pulse Ox 92 L 02/09/24 07:20 FiO2 Intake & Output 02/08/24 02/09/24 02/09/24 18:59 06:59 18:59 Other: Voiding Method Toilet # Voids 2 3 - Exam GENERAL DESCRIPTION: An elderly male lying in bed in no distress RESPIRATORY SYSTEM: Unlabored breathing , decreased breath sounds at bases HEART: S1 S2 regular rate and rhythm , ABDOMEN: Soft , no tenderness EXTREMITIES: Left knee is currently dressed - Labs CBC & Chem 7: 02/09/24 04:25 02/09/24 04:25 Labs: Abnormal Lab Results - Last 24 Hours (Table) 02/09/24 02/09/24 Range/Units 04:25 04:25 WBC 10.48 H (4.50-10.00) X 10*3/uL RBC 3.23 L (4.10-5.20) X 10*6/uL Hgb 9.4 L (12.0-15.0) g/dL Hct 29.2 L (37.2-46.3) % RDW 16.6 H (11.5-14.5) % Immature Gran # 0.06 H (0.00-0.04) X 10*3/uL BUN/Creatinine Ratio 21.50 H (12.00-20.00) Ratio Total Bilirubin <0.2 L (0.3-1.2) mg/dL ALT 53 H (8-44) U/L Alkaline Phosphatase 172 H (41-126) U/L Total Protein 5.5 L (6.2-8.2) g/dL Albumin 3.6 L (3.8-4.9) g/dL Microbiology - Last 24 Hours (Table) 02/06/24 14:45 Gram Stain - Final Knee - Left Wound Culture - Final 02/06/24 14:45 Gram Stain - Final Knee - Left Wound Culture - Final 02/06/24 14:45 Anaerobic Culture - Preliminary Knee - Left 02/05/24 15:36 Blood Culture - Preliminary Blood Assessment and Plan (1) Infection of left knee Current Visit: Yes Status: Acute Code(s): M00.9 - PYOGENIC ARTHRITIS, UNSPECIFIED SNOMED Code(s): 975864322 Plan: 1patient presented to hospital with left knee pain swelling redness in this patient who did have a recent left knee replacement on 12/29/2023 subsequent developing cellulitis failing outpatient oral Keflex therapy in this patient who is status post arthrotomy and polyethylene exchange as well as antibiotic bead p lacement he will need to cover for the gram-positive as well as gram-negative pathogen, patient culture has been negative patient has been on outpatient oral antibiotics 2with a culture negative and resistant pathogen we will discontinue vancomycin and cefepime start the patient Rocephin 2 g daily get a PICC line for outpatient IV antibiotic multiple question concern answered Dictation was produced using [employer] dictation software. please excuse any grammatical, word or spelling errors. Time with Patient: Less than 30
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
[2024-02-09] MEDS: ENOXAPARIN 40 MG/0.4 ML SYRINGE SQ SCH (18:53)
[2024-02-10 07:31] VITALS: BP 167/75; PULSE 80; RESP 16; TEMP 97.9
--- NOTE | 2024-02-10 10:08 | P.DS ---
Providers Date of admission: 02/05/24 16:25 Expected date of discharge: 02/10/24 Attending physician: Paul Alcantara Consults: 02/05/24 16:27 Consult Physician Routine Consulting Provider: Cheyenen Hopson Consult Reason/Comments: Medical Management Do you want consulting provider notified?: Yes 02/06/24 15:59 Consult Physician Routine Consulting Provider: Derek Bass Consult Reason/Comments: Possible left knee septic arthropathy Do you want consulting provider notified?: Yes 02/08/24 11:31 Consult Physician Routine Consulting Provider: Derek Bass Consult Reason/Comments: knee infection Do you want consulting provider notified?: Yes Primary care physician: Cheyenne Hopson Hospital Course: Date of admission: 02/05/2024 Date of discharge: 02/10/2024 Admission diagnosis: Left knee periprosthetic joint infection Discharge diagnosis: Same Attending physician: Dr. Alcantara Surgical procedures: 1. Left knee arthrotomy with polyethylene exchange 2. Left knee irrigation and debridement 3. Left knee antibiotic bead placement Brief history: Patient is a 53-year-old female with a history of left knee periprosthetic joint infection. At this point patient has failed conservative treatment measures and has opted to proceed with a elective left knee arthrotomy with polyethylene exchange; left knee irrigation debridement; left knee antibiotic bead placement. Hospital course: Details of patient's surgery can be found in operative report. Patient tolerated the procedure well and was subsequently transported to orthopedic floor. Patient's orthopeidc and medical care was provided daily. Patient had daily laboratory tests performed for evaluation of overall blood counts. Patient had daily physical therapy to include strengthening range of motion as well as education with walker ambulation. Patient was treated with Lovenox for their postoperative DVT prophylaxis during their inpatient stay. Patient was noted to have a relatively uneventful postoperative course. Patient reported satisfactory pain control with oral pain medications by postoperative day 4. Patient showed satisfactory progress with physical therapy. Patient moved steadily through the program and had no difficulty meeting the goals by postoperative day 4. Given patient's otherwise satisfactory course and having met physical therapy goals, plan is to discharge patient home with home care on postoperative day 4. Discharge condition/disposition: Patient will be discharged home with home care in stable condition. Discharge medications: Instructions are given on resumption of patient's normal daily medications per primary care recommendation, in addition patient will be prescribed [place]; senna; aspirin; resume Plavix and antibiotics per infectious disease. Discharge instructions: 1. Wound care and infection precautions, keep incision dry and covered while showering, no lotions, creams, moisturizers. No soaking, tubs, pools, hottubs. Do not scrub over the incision. 2. Weight-bear as tolerated with walker / cane until follow-up. 3. Ice and elevate when necessary. Do not exceed 20 minutes per hour with ice pack. 4. Utilize compression sleeve until seen at first follow up appointment. 5. Visiting nursing care. 6. Home physical therapy. 7. Pain meds and anticoagulants per prescription. 8. Pain medication has potential to cause constipation. Increase oral fluid and fiber intake. Contact primary care provider if you have not had a bowel movement within 48 hours after discharge 9. No anti-inflammatory medication until discussed at first post operative visit, this including Motrin, Aleve, Mobic, Diclofenac. 10. Follow up in office at 2 weeks postop with Freddy Elkins PA-C / Rohit Hahn PA-C 11. Follow up with your primary care doctor 7-10 days after discharge. 12. Contact [facility] with any questions, . Assessment: Left knee periprosthetic joint infection Procedures: 1. Left knee arthrotomy with polyethylene exchange 2. Left knee irrigation and debridement 3. Left knee antibiotic bead placement Patient Condition at Discharge: Good Plan - Discharge Summary Discharge Rx Participant: No New Discharge Prescriptions: New HYDROcodone/APAP 7.5-325MG [[place] 7.5-325] 1 - 2 tab PO Q6HR PRN #32 tab PRN Reason: Pain Sennosides/Docusate Sodium [Senna Plus 8.6-50 mg Softgel] 1 each PO DAILY #20 capsule No Action Citalopram Hydrobromide [CeleXA] 40 mg PO DAILY buPROPion XL [Wellbutrin XL] 150 mg PO DAILY Aspirin [Adult Low Dose Aspirin EC] 81 mg PO DAILY Ergocalciferol [Vitamin D2 (1250 Mcg = 71056 Iu)] 1,250 mcg PO Q7D HYDROcodone/APAP 7.5-325MG [[place] 7.5-325] 1 tab PO Q6HR PRN PRN Reason: Pain Clopidogrel [Plavix] 75 mg PO DAILY Cyclobenzaprine [Flexeril] 5 mg PO HS Albuterol Inhaler [Ventolin Hfa Inhaler] 1 - 2 puff INHALATION Q6H PRN PRN Reason: Shortness Of Breath Atorvastatin [Lipitor] 40 mg PO DAILY Losartan Potassium [Cozaar] 100 mg PO DAILY Estrogens, Conjugated [Premarin] 0.625 mg PO DAILY Meloxicam [Mobic] 15 mg PO DAILY Pregabalin [Lyrica] 150 mg PO BID ALPRAZolam [Xanax] 0.25 mg PO TID PRN PRN Reason: Anxiety Albuterol Nebulized [Ventolin Nebulized] 2.5 mg INHALATION Q6H PRN PRN Reason: Shortness Of Breath Discharge Medication List Citalopram Hydrobromide [CeleXA] 40 mg PO DAILY 02/04/16 [History] Aspirin [Adult Low Dose Aspirin EC] 81 mg PO DAILY 07/21/23 [History] Atorvastatin [Lipitor] 40 mg PO DAILY 07/21/23 [History] Ergocalciferol [Vitamin D2 (1250 Mcg = 44526 Iu)] 1,250 mcg PO Q7D 07/21/23 [History] buPROPion XL [Wellbutrin XL] 150 mg PO DAILY 07/21/23 [History] ALPRAZolam [Xanax] 0.25 mg PO TID PRN 02/05/24 [History] Clopidogrel [Plavix] 75 mg PO DAILY 02/05/24 [History] Cyclobenzaprine [Flexeril] 5 mg PO HS 02/05/24 [History] Estrogens, Conjugated [Premarin] 0.625 mg PO DAILY 02/05/24 [History] HYDROcodone/APAP 7.5-325MG [[place] 7.5-325] 1 tab PO Q6HR PRN 02/05/24 [History] Losartan Potassium [Cozaar] 100 mg PO DAILY 02/05/24 [History] Meloxicam [Mobic] 15 mg PO DAILY 02/05/24 [History] Pregabalin [Lyrica] 150 mg PO BID 02/05/24 [History] Albuterol Inhaler [Ventolin Hfa Inhaler] 1 - 2 puff INHALATION Q6H PRN 02/07/24 [History] Albuterol Nebulized [Ventolin Nebulized] 2.5 mg INHALATION Q6H PRN 02/07/24 [History] HYDROcodone/APAP 7.5-325MG [[place] 7.5-325] 1 - 2 tab PO Q6HR PRN #32 tab [Rx] Sennosides/Docusate Sodium [Senna Plus 8.6-50 mg Softgel] 1 each PO DAILY #20 capsule 02/10/24 [Rx] Follow up Appointment(s)/Referral(s): [facility] [NON-STAFF] - 1-2 Days ([facility] will call you to schedule your in home nursing and physical therapy visits. ) Cirilo Elkins PAC [PHYSICIAN HEALTHCARE INSURANCE SALES AGENT] - 2 Weeks Cheyenne Hopson MD [Primary Care Provider] - 1-2 days Activity/Diet/Wound Care/Special Instructions: Orthopedic Discharge Instructions: 1. Wound care and infection precautions, keep incision dry and covered while showering, no lotions, creams, moisturizers. No soaking, pools, hot tubs. Do not scrub over incision. 2. Weight-bear as tolerated with walker / cane until follow-up. 3. Ice and elevate when necessary. Do not exceed 20 minutes per hour with ice pack. 4. Utilize compression sleeve until seen at first follow up appointment. 5. Pain meds and anticoagulants per prescription. 6. Pain medication has potential to cause constipation. Increase oral fluid and fiber intake. Contact primary care provider if you have not had a bowel movement within 48 hours after discharge. 7. No anti-inflammatory medication until discussed at first post operative visit, this including Motrin, Aleve, Mobic, Diclofenac. 8. Follow up in office at 2 weeks postop with Freddy Elkins PA-C/Rohit Hahn PA-C 9. Follow up with your primary care doctor 7-10 days after discharge. 10. Contact [facility] with any questions, . Discharge Disposition: HOME WITH HOME HEALTH SERVICES
--- NOTE | 2024-02-10 10:20 | P.PN ---
Subjective Progress Note Date: 02/10/24 Principal diagnosis: Left knee periprosthetic joint infection Patient was seen at bedside this morning lying in the semirecumbent position with silver foam dressing present over left knee. Patient says she did receive PICC line yesterday. She says she has been up walking daily over the past few days without issue. She says she is looking forward to going home later today. Patient says she does have a walker at home. patient denies any issues with pain. Patient denies any other complaints at this time. Objective - Vital Signs Vital signs: Vital Signs Temp 97.9 F 02/10/24 07:30 Pulse 80 02/10/24 07:30 Resp 16 02/10/24 07:30 BP 167/75 02/10/24 07:30 Pulse Ox 95 02/10/24 09:05 FiO2 Intake & Output 02/09/24 02/10/24 02/10/24 18:59 06:59 18:59 Intake Total 221 Balance 221 Intake: Oral 221 Other: Voiding Method Toilet # Voids 4 2 # Bowel Movements 1 - Exam Left knee: Incision is clean, dry, and intact. The silver foam dressing is in good condition. There is minimal soft tissue swelling and ecchymosis surrounding the medial and lateral aspects of the incision. Calf is soft, no tenderness with palpation. Plantar flexion, dorsiflexion, EHL, FHL are intact. Sensory exam to light touch throughout the extremity is intact, dorsal pedis pulses 2+. - Labs CBC & Chem 7: 02/09/24 04:25 02/09/24 04:25 Labs: Microbiology - Last 24 Hours (Table) 02/06/24 14:45 Anaerobic Culture - Preliminary Knee - Left 02/06/24 14:45 Anaerobic Culture - Preliminary Knee - Left 02/06/24 14:45 Gram Stain - Final Knee - Left Wound Culture - Final 02/06/24 14:45 Gram Stain - Final Knee - Left Wound Culture - Final Assessment and Plan Assessment: Left knee periprosthetic joint infection Postop day #4 status post: 1. Left knee arthrotomy with polyethylene exchange 2. Left knee irrigation and debridement 3. Left knee antibiotic bead placement Plan: 1. Left knee periprosthetic joint infection - Left knee arthrotomy with polye thylene exchange; irrigation and debridement; antibiotic bead placement performed 02/06/2024. Patient stable at bedside this morning. Patient did receive PICC line yesterday. Work with PT/OT daily. Weightbearing as tolerated with walker. Pain medication as needed. Antibiotics per infectious disease. discharge home today with health services. 2. Appreciate medical and ID management 3. Pain management -Tylenol; [place]; Lyrica 4. DVT prophylaxis -Lovenox in hospital. To resume aspirin and Plavix once home 5. GI prophylaxis -senna; milk of mag 6. PT/OT -weightbearing as tolerated with walker 7. Encourage incentive spirometer use 8. Discharge planning - home today with health services Time with Patient: Less than 30
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
== END 2024-02-10 13:37 | disposition home health service (06) | DRG 325 ==
LOC: OR 12:19 → 4SSUR 16:25
PROVIDERS: ADMIT Orthopaedic Surgery; ATTEND Orthopaedic Surgery
PROC: 0SPW0JZ Removal of Synthetic Substitute from Left Knee Joint, Tibial Surface, Open Approach (ICD-10-PCS; principal; 2024-02-06 13:05)
PROC: 0SRW0JZ Replacement of Left Knee Joint, Tibial Surface with Synthetic Substitute, Open Approach (ICD-10-PCS; principal; 2024-02-06 13:05)
PROC: 3E0U029 Introduction of Other Anti-infective into Joints, Open Approach (ICD-10-PCS; principal; 2024-02-06 13:05)
PROC: 05H933Z Insertion of Infusion Device into Right Brachial Vein, Percutaneous Approach (ICD-10-PCS; 2024-02-09)
DX: T84.54XA Infection and inflammatory reaction due to internal left knee prosthesis, initial encounter (principal); Y83.1 Surgical operation with implant of artificial internal device as the cause of abnormal reaction of the patient, or of later complication, without mention of misadventure at the time of the procedure; E78.5 Hyperlipidemia, unspecified; Z87.891 Personal history of nicotine dependence; F32.A Depression, unspecified; I10 Essential (primary) hypertension; J44.9 Chronic obstructive pulmonary disease, unspecified; Z28.310 Unvaccinated for COVID-19; Z28.21 Immunization not carried out because of patient refusal; Z91.51 Personal history of suicidal behavior; Z79.02 Long term (current) use of antithrombotics/antiplatelets; Z79.82 Long term (current) use of aspirin; Z79.899 Other long term (current) drug therapy; Z79.1 Long term (current) use of non-steroidal anti-inflammatories (NSAID); Z88.5 Allergy status to narcotic agent; Z86.73 Personal history of transient ischemic attack (TIA), and cerebral infarction without residual deficits
CPT/HCPCS: 36573; 71045; 80053; 80202; 82565; 83605; 85025; 85652; 86140; 87040; 87070; 87075; 87205; 94640; 94760; 99285

== ENCOUNTER 2024-02-16 19:08 | Observation (INO) | payer BC, OTHER ==
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
[2024-02-16] MEDS: KETOROLAC 15 MG/ML 1 ML VIAL IVP STA (22:39)
[2024-02-16] MEDS: SODIUM CHLORIDE 0.9% 500 ML 500 ML IV STA (22:39)
[2024-02-16] MEDS: HYDROmorphone 1 MG/ML 1 ML SYRINGE IVP STA (22:39)
[2024-02-16] MEDS: ACETAMINOPHEN TAB 500 MG TAB PO STA (22:41)
[2024-02-16 22:49] LABS: Basophils # (A) 0.1 k/uL (0-0.2); Basophils % (A) 1 %; Eosinophils # (A) 0.4 k/uL (0-0.7); Eosinophils % (A) 4 %; HCT 35.9 % (34.0-46.0); HGB 10.9 gm/dL (11.4-16.0); Hypochromasia Slight; Lymphocytes # (A) 3.7 k/uL (1.0-4.8); Lymphocytes % (A) 33 %; MCH 27.8 pg (25.0-35.0); MCHC 30.4 g/dL (31.0-37.0); MCV 91.2 fL (80.0-100.0); Mean Platelet Volume 7.9; Monocytes # (A) 0.6 k/uL (0-1.0); Monocytes % (A) 6 %; Neutrophils % (A) 55 %; Platelet Count 530 k/uL (150-450); RBC 3.93 m/uL (3.80-5.40); RDW 15.6 % (11.5-15.5)
[2024-02-16 23:00] LABS: ALT 29 U/L (4-34); AST 26 U/L (14-36); African American GFR (CKD) >90 (>60 ml/min/1.73 sqM); Albumin 4.3 g/dL (3.5-5.0); Alkaline Phosphatase 209 U/L (38-126); Anion Gap 7 mmol/L; Blood Urea Nitrogen 12 mg/dL (7-17); C Reactive Protein 3.7 mg/dL (<1.0); Calcium 9.6 mg/dL (8.4-10.2); Carbon Dioxide 22 mmol/L (22-30); Chloride 109 mmol/L (98-107); Glucose 104 mg/dL (74-99); Non-African American GFR(CKD) >90 (>60 ml/min/1.73 sqM); Potassium 4.3 mmol/L (3.5-5.1); Sodium 138 mmol/L (137-145); Total Bilirubin 0.4 mg/dL (0.2-1.3); Total Protein 6.8 g/dL (6.3-8.2)
[2024-02-16 23:03] LABS: Appearance,Urine Cloudy (Clear); Bacteria,Urine Rare /hpf; Bilirubin,Urine Negative (Negative); Blood,Urine Moderate (Negative); Color,Urine Yellow; Glucose,Urine (UA) Negative (Negative); Hyaline Casts,Urine 11 /lpf (0-2); Ketones,Urine Negative (Negative); Leukocyte Esterase,Urine Negative (Negative); Mucus,Urine Few /hpf; Nitrite,Urine Negative (Negative); PH, Urine 5.5 (5.0-8.0); Protein,Urine Trace (Negative); RBC,Urine 38 /hpf (0-5); Specific Gravity,Urine 1.036 (1.001-1.035); Squamous Epithelial Cell,Urine 25 /hpf (0-4); Urobilinogen,Urine <2.0 mg/dL (<2.0); WBC,Urine 2 /hpf (0-5)
--- NOTE | 2024-02-17 00:14 | XR ---
EXAM: XR Left Tibia and Fibula, 2 Views CLINICAL HISTORY: [email or web address] XR Reason: r/o osteo. fluid collection. hx septic arthritis TECHNIQUE: Frontal and lateral views of the left tibia and fibula. COMPARISON: No relevant prior studies available. FINDINGS: Bones/joints: LEFT knee arthroplasty. Midline skin obdulia. No dislocation. No periprosthetic fracture of the tibia. Soft tissues: See above. IMPRESSION: No periprosthetic fracture of the tibia.
--- NOTE | 2024-02-17 00:15 | XR ---
EXAM: XR Left Knee, 3 Views CLINICAL HISTORY: [email or web address] XR Reason: r/o osteo. fluid collection. hx septic arthritis TECHNIQUE: Three views of the left knee. COMPARISON: No relevant prior studies available. FINDINGS/IMPRESSION: Status post LEFT knee arthroplasty. Metallic tibial and femoral components. No periprosthetic fracture. Patella resurfacing. Midline cutaneous skin obdulia.
[2024-02-17] MEDS: diphenhydrAMINE 50 MG/ML 1 ML VIAL IVP STA (01:17)
--- NOTE | 2024-02-17 01:37 | XR ---
EXAM: XR Left Femur, 2 Views CLINICAL HISTORY: [email or web address] XR Reason: r/o osteo. fluid collection. hx septic arthritis TECHNIQUE: Frontal and lateral views of the left femur. COMPARISON: No relevant prior studies available. FINDINGS: Bones/joints: LEFT knee arthroplasty. No dislocation. No fracture of the femur. Soft tissues: Unremarkable. IMPRESSION: No fracture of the femur.
[2024-02-17] MEDS ORDERED: VANCOMYCIN IV PER PHARMACY 1 EACH MISC MISCELLANE PRN (02:34)
[2024-02-17] MEDS ORDERED: ACETAMINOPHEN TAB 325 MG TAB PO PRN (02:50)
[2024-02-17] MEDS ORDERED: NALOXONE 0.4 MG/ML 1 ML VIAL IV PRN (02:50)
[2024-02-17] MEDS ORDERED: HYDROmorphone 0.5 MG/0.5 ML SYRINGE IVP PRN (02:50)
[2024-02-17] MEDS ORDERED: ONDANSETRON 4 MG/2 ML VIAL IVP PRN (02:50)
[2024-02-17] MEDS: PIPERACILLIN-TAZOBACTAM 3.375 GM in SODIUM CHLORIDE 0.9% 100 ML IVPB STA (02:52)
[2024-02-17] MEDS: SODIUM CHLORIDE 0.9% 1,000 ML IV SCH (03:34)
[2024-02-17] MEDS: VANCOMYCIN 1,500 MG in SODIUM CHLORIDE 0.9% 500 ML 500 ML IVPB ONE (03:34)
[2024-02-17] MEDS: HYDROmorphone 1 MG/ML 1 ML SYRINGE IVP PRN (05:07)
[2024-02-17 08:30] LABS: Erythrocyte Sedimentation Rate 41 mm/Hr (0-30)
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
[2024-02-17 14:39] VITALS: BP 158/76; PULSE 86; RESP 16; TEMP 96.9
[2024-02-17] MEDS: VANCOMYCIN 1,250 MG in SODIUM CHLORIDE 0.9% 250 ML IVPB SCH (14:45)
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
[2024-02-18] MEDS ORDERED: PANTOPRAZOLE 40 MG TABLET PO SCH (07:30)
[2024-02-18] MEDS ORDERED: ENOXAPARIN 40 MG/0.4 ML SYRINGE SQ SCH (09:00)
[2024-02-18] MEDS ORDERED: VANCOMYCIN TROUGH DUE 1 EACH MISC MISCELLANE ONE (11:00)
== END 2024-02-17 17:31 | disposition home health service (06) ==
LOC: EC 19:08 → 4SSUR 02-17 02:51 → 1SOBS 02-17 12:28
PROVIDERS: ADMIT Internal Medicine; ATTEND Internal Medicine
DX: T84.54XA Infection and inflammatory reaction due to internal left knee prosthesis, initial encounter (principal); Y83.1 Surgical operation with implant of artificial internal device as the cause of abnormal reaction of the patient, or of later complication, without mention of misadventure at the time of the procedure; J44.9 Chronic obstructive pulmonary disease, unspecified; E78.5 Hyperlipidemia, unspecified; I10 Essential (primary) hypertension; F32.A Depression, unspecified; Z86.73 Personal history of transient ischemic attack (TIA), and cerebral infarction without residual deficits; Z87.891 Personal history of nicotine dependence; Z79.02 Long term (current) use of antithrombotics/antiplatelets; Z79.82 Long term (current) use of aspirin; Z79.899 Other long term (current) drug therapy; Z88.5 Allergy status to narcotic agent
CPT/HCPCS: 96376 ×2; 96361; 96365; 96366; 96367; 96375 ×2; 99285; 36415; 80053; 85652; 83605; 85025; 86140; 81001; 87040; 73552; 73590; 73562; G0378; J2543; J3370; J1200; J1170 ×2; J1885

== ENCOUNTER → 2024-11-29 | Outpatient (CLI) | payer OTHER ==
[2024-11-29 09:54] VITALS: BP 153/69; PULSE 93; RESP 16
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
== END ==
LOC: PNWHC3 09:05
PROVIDERS: ATTEND Specialist
DX: M46.1 Sacroiliitis, not elsewhere classified (principal); F17.210 Nicotine dependence, cigarettes, uncomplicated; Z88.5 Allergy status to narcotic agent; Z91.048 Other nonmedicinal substance allergy status
CPT/HCPCS: 99211

== ENCOUNTER 2024-12-11 07:38 | Emergency (ER) | payer OTHER ==
[2024-12-11 07:48] VITALS: RESP 18; TEMP 97.8
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
--- NOTE | 2024-12-11 10:32 | US ---
EXAMINATION TYPE: US venous doppler duplex UE LT DATE OF EXAM: 12/11/2024 COMPARISON: 07/01/2016 CLINICAL INDICATION: Female, 54 years old with history of bruising, pain, edema; no hx of dvt, left a rm bruising, pain & swelling x 1 day TECHNIQUE: Grayscale, color Doppler and spectral Doppler imaging of the upper extremity. SIDE PERFORMED: Left VESSELS IMAGED: IJV Subclavian Vein Axilla Vein Brachial Vein(s) Radial Paired Veins Ulnar Paired Veins Cephalic Vein* Basilic Vein* (*superficial vessels) FINDINGS: Left Arm: appears negative for DVT Ulnar veins limited due to pt unable to hold still & keep wrist flat Grayscale, color doppler, spectral doppler imaging performed of the deep veins of the upper extremiti es. IMPRESSION: No evidence for DVT. Limitations to the study as described above. [facility], Workstation: JEN 12/11/2024 10:30 AM
[2024-12-11 11:14] VITALS: BP 148/78; PULSE 78
== END 2024-12-11 11:14 | disposition home or self-care (01) ==
LOC: EC 07:38
DX: S40.022A Contusion of left upper arm, initial encounter (principal); F17.200 Nicotine dependence, unspecified, uncomplicated; Z88.5 Allergy status to narcotic agent; Z91.048 Other nonmedicinal substance allergy status; X58.XXXA Exposure to other specified factors, initial encounter
CPT/HCPCS: 99283

== ENCOUNTER → 2024-12-14 | Day surgery (SDC) | payer OTHER ==
[~2024-12-14] MED LIST changes: +IOPAMIDOL M200 10 ML VIAL ONE; +LACTATED RINGERS 1,000 ML IV SCH; +ROPIVACAINE 5 MG/ML 30 ML VIAL ONE; -TRANEXAMIC 1,000 MG/100ML-NACL 1,000 MG in SALINE 1 100ML.BAG IVPB PRN; +methylPREDNISolone ACETATE 80 MG/ML 1 ML VIAL ONE
[2024-12-14 06:37] VITALS: TEMP 97.4
[2024-12-14] MEDS: ALPRAZolam 0.25 MG TAB PO STA (06:52)
[2024-12-14 07:56] VITALS: RESP 18
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
[2024-12-14 08:09] VITALS: BP 130/80; PULSE 78
--- NOTE | 2024-12-15 11:45 | P.PCN ---
Date of Procedure: 12/14/24 Procedure(s) Performed: Procedure= bilateral sacroiliac joints steroid injection under fluoroscopy guidance (fluoroscopy image stored on file in the radiology Department ) Preoperative diagnosis= 1-Bilateral sacroiliitis 2-bilateral sacroiliac joint dysfunction Postoperative diagnosis=Same as preop Diagnosis . Complication = none Condition= stable Anesthesia= local anesthesia with ropivacaine 0.5% 4 ml only Indication for the procedure= patient complaining of low back pain , examination was positive for severe tenderness over the sacroiliac joints bilaterally and patient diagnosed with sacroiliitis, for this reason she was good candidate for sacroiliac joint steroid injection. Description of the procedure= procedure risk and benefits discussed with the patient, including but not limited, risk of infection and bleeding, and ALLERGIC reaction to the medication and not complete pain relief and patient agreed with the preceding patient taken to the operating room, placed in prone position or standard monitors applied to the patient then after induction of anesthesia back prepped with chlorhexidine 3 times , Then under strict sterile technique, first I did the right sacroiliac joint the which was identified under fluoroscopy guidance been local infiltration of the skin and subcu interstitial with lidocaine 1% then 22-gauge Quincke Needle advanced slowly under fluoroscopy and placed in the right sacroiliac joint needle placement confirmed with AP and oblique and lateral view, then after that Isovue 200 one mL injected which confirmed the correct needle placement with the appropriate arthrogram of the sacroiliac joint, and after appropriate needle placement confirmed and after negative aspiration, or heme , then Ropivacaine 0.5% 2 mL, and 40 mg of Depo-Medrol mixed together and injected in the right sacroiliac joint after negative aspiration patient tolerated the procedure well without any complication. Then the left sacroiliac joint steroid injection done under strict sterile technique local infiltration of the skin and subcu interstitial at the location of the left sacroiliac joint then a 22-gauge Quincke Needle advanced slowly under fluoroscopy time placed in the left sacroiliac joint, needle placement confirmed with AP and oblique and lateral view then after appropriate needle placement confirmed, with the AP and oblique and lateral then after negative aspiration Isovue 200 1 mL injected showed arthropathy of the left sacroiliac joint, and after negative aspiration 0.5% Ropivacaine 2 mL and 40 mg of Depo- Medrol injected in the left sacroiliac joint after negative aspiration patient tolerated the procedure well that any complications and she will follow up in clinic 3 weeks
== END ==
LOC: ORPAIN 06:15
PROVIDERS: ATTEND Specialist
DX: M46.1 Sacroiliitis, not elsewhere classified (principal); Z88.5 Allergy status to narcotic agent; Z88.6 Allergy status to analgesic agent; Z79.82 Long term (current) use of aspirin
CPT/HCPCS: 27096; J2795; Q9966; J1010

== ENCOUNTER → 2025-01-07 | Outpatient (CLI) | payer OTHER ==
--- NOTE | 2025-01-07 14:42 | US ---
EXAMINATION TYPE: US venous doppler duplex LE RT DATE OF EXAM: 01/07/2025 2:29 PM COMPARISON: NONE CLINICAL INDICATION: Female, 54 years old with history of RIGHT R22.41 LOCALIZED SWELLING, MASS AND L UMP, RI: Right knee pain and palp TECHNIQUE: The lower extremity deep venous system is examined utilizing real time linear array sonog zena with graded compression, color doppler sonography, and spectral doppler. SIDE PERFORMED: Right FINDINGS: VESSELS IMAGED: Common Femoral Vein Deep Femoral Vein Greater Saphenous Vein * Femoral Vein Popliteal Vein Small Saphenous Vein * Proximal Calf Veins (* superficial vessels) Right Leg: Negative for DVT, Color Doppler imaging shows patency of the vessels. Spectral waveforms are within normal limits. IMPRESSION: No ultrasound evidence for deep venous thrombosis. [facility], , 01/07/2025 2:39 PM
== END | disposition home or self-care (01) ==
LOC: RADUSWWP 14:07
PROVIDERS: ATTEND Internal Medicine
DX: R22.41 Localized swelling, mass and lump, right lower limb (principal)

== ENCOUNTER → 2025-02-23 | Day surgery (SDC) | payer OTHER ==
[2025-02-23] MEDS: diazePAM 5 MG TAB PO STA (08:54)
[2025-02-23 09:12] VITALS: RESP 16; TEMP 98.3
[2025-02-23] MEDS: HYDROcodone/APAP 5-325MG 1 EACH TAB PO PRN (10:38)
--- NOTE | 2025-02-23 12:15 | FL ---
EXAMINATION TYPE: FL myelogram cervical DATE OF EXAM: 02/23/2025 10:31 AM COMPARISON: None. CLINICAL INDICATION: Female, 54 years old with history of M47.22, M54.2 CERVICALGIA, neck pain. COMPLICATIONS: None SEDATION: 5 mg oral Valium was administered by radiology nursing. The patient and the patient's vital signs we re monitored by qualified independent radiology personnel. TECHNIQUE: The procedure and potential risks were explained to patient and an informed consent was obtained with teach back. Site and side was verified. A time out was performed. The patient was placed prone on the fluoroscopy table and the L3-L4 level was localized and the skin was marked and was prepped and draped in the usual sterile fashion. The patient has L4-S1 posterior a nd interbody fusion changes. Lidocaine was used for local anesthesia. Utilizing fluoroscopic guidance a 22-gauge, 5 inch spinal ne edle was placed through the skin and into the subarachnoid space. Clear CSF was visualized. 10 mL Isovue-M 300 contrast material was injected into the intrathecal spac e. Needle was removed, hemostasis obtained, and a bandage placed. The table was manipulated to promote passage of contrast into the neck. The patient had some exacerbation of underlying right-sided sciatica but otherwise tolerated the proc edure well and was sent to the CT suite for CT myelogram to follow. The estimated blood loss was minimal. The patient's condition was unchanged following the procedure. Fluoroscopy time: 1 minute 19 seconds Total images: 4. Total DAP: 50 mGycm2 IMPRESSION: Successful intrathecal contrast injection for CT cervical myelogram to follow. [facility], , 02/23/2025 12:13 PM
[2025-02-23 15:00] VITALS: BP 155/74; PULSE 95
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
== END ==
LOC: RADPROMAIN 08:01
PROVIDERS: ATTEND Orthopaedic Surgery
DX: M47.22 Other spondylosis with radiculopathy, cervical region (principal); Z98.1 Arthrodesis status
CPT/HCPCS: 62302; 72126; Q9967

== ENCOUNTER 2025-02-28 07:31 | Emergency (ER) | payer OTHER ==
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
[2025-02-28] MEDS: IBUPROFEN 800 MG TAB PO STA (08:01)
--- NOTE | 2025-02-28 08:37 | XR ---
EXAMINATION TYPE: XR foot complete LT DATE OF EXAM: 02/28/2025 8:25 AM INDICATION: Patient age:Female; 54 years old; Reason for study: pain; PHH. pain COMPARISON: None TECHNIQUE: The left foot was examined in the AP, oblique, and lateral projections. FINDINGS: There is curvilinear lucency within the distal phalanx of the first digit without cortical disruption . Remote ununited minimally displaced oblique fracture of the distal aspect of the fifth proximal pha lanx. Well-corticated appearance. No evidence of soft tissue swelling. Joints are preserved. 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 Bipartite medial sesamoid bone. IMPRESSION: 1. Questionable acute nondisplaced fracture of the distal phalanx of the first toe versus anatomic v ariant. Consider follow-up radiograph in 7-10 days. 2. Remote ununited minimally displaced well-corticated fracture of the distal fifth digit proximal p halanx. [facility], , 02/28/2025 8:35 AM
[2025-02-28] MEDS: HYDROcodone/APAP 5-325MG 1 EACH TAB PO STA (09:00)
[2025-02-28] MEDS: ACET/COD 300 MG/30 MG STARTER PACK 6 TAB BTL PO STA (09:14)
[2025-02-28 09:22] VITALS: BP 155/94; PULSE 75; RESP 18; TEMP 98
== END 2025-02-28 09:22 | disposition home or self-care (01) ==
LOC: EC 07:31
DX: S92.532A Displaced fracture of distal phalanx of left lesser toe(s), initial encounter for closed fracture (principal); Z87.891 Personal history of nicotine dependence; Z88.5 Allergy status to narcotic agent; Y93.19 Activity, other involving water and watercraft; W19.XXXA Unspecified fall, initial encounter
CPT/HCPCS: 99283